=== PATIENT | female | born 1945 | race Caucasian/White ===

== ENCOUNTER 2023-01-23 09:06 | Outpatient (CLI) | payer MEDICARE, SELFPAY ==
--- NOTE | ~2023-01-23 | XR_ITS ---
XR chest 2V DATE: 01/23/2023 09:35 INDICATION: Dyspnea TECHNIQUE: 2 views COMPARISON: 12/03/2018 AP and lateral chest FINDINGS: Bilateral pulmonary hyperinflation consistent with COPD. No pulmonary infiltrate or consoli dation, pleural effusion or pulmonary vascular congestion or pneumothorax. Normal heart size. Aortic calcification and mild tortuosity. No hilar or mediastinal enlargement. Diffuse osteopenia. Mild thoracic dextroscoliosis. Lumbar levoscoliosis. IMPRESSION: Bilateral hyperinflation consistent with COPD Aortic atherosclerosis Reviewed, dictated and finalized at location L. OP ADMINISTRATOR
== END 2023-01-23 09:07 | disposition home or self-care (01) ==
PROVIDERS: PCP Family Medicine; Visit Provider Nurse Practitioner Family
DX: R06.00 Dyspnea, unspecified (principal); I70.0 Atherosclerosis of aorta; R91.8 Other nonspecific abnormal finding of lung field
CPT/HCPCS: 71046

== ENCOUNTER 2023-01-29 09:00 | Outpatient (CLI) | payer MEDICARE, SELFPAY ==
--- NOTE | 2023-01-29 13:28 | WPDSIXMINUTE ---
Six Minute Walk Procedure Procedure Performed Pulmonary Stress Test (6 min walk) Six Minute Walk Six Minute Walk: This is a 6 minute walk test. The test was performed and interpreted in accordance with the 2014 ERS/ATS task force guidelines. Findings: The patient's resting room air oxygen saturation measured by pulse oximetry was 97% and heart rate was 63 bpm. Patient ambulated for 244 meters and oxygen saturation remained 97 to 98%. Heart rate at the end of the study was 97 bpm. The patient did not qualify for supplemental oxygen at rest or with ambulation. There are no prior studies for comparison.
--- NOTE | 2023-01-29 13:29 | WPDPFTINT ---
PFT Procedure Performed PFT Procedure Performed Spirometry with Pre/Post Bronchodilator Plethysmography (Lung Vol) Diffusing Cap (DLCO) Flow Vol Loop PFT Interpretation This is a pulmonary function test with pre and post-bronchodilator spirometry, plethysmography and diffusing capacity. The test was performed and results interpreted in accordance with the 2019 and 2005 ATS/ERS Task Force guidelines respectively using the Global Lung Function Initiative-2012 reference equations. Patient demonstrated good effort and cooperation. Reproducibility criteria were met. The quality of the pre bronchodilator spirometry maneuver was Grade A and post bronchodilator spirometry maneuver was Grade A. Findings: Spirometry: There is decreased maximal expiratory airflow at all lung volumes with concave expiratory flow tracing. The contour the inspiratory flow tracing is normal. The pre bronchodilator FVC is 2.20 L, 90% predicted. The pre bronchodilator FEV1 is 0.99 L, 53% predicted. The pre bronchodilator FEV1: FVC ratio is 45%. The post bronchodilator FVC is 2.27 L, representing a 3% increase. The post bronchodilator FEV1 is 1.10 L, representing a 10% increase. The post bronchodilator FEV1: FVC ratio is 48%. Plethysmography: The total lung capacity is 6.33 L, 134% predicted. The functional residual capacity is 4.75 L, 175% predicted. The residual volume is 4.13 L, 186% predicted. Diffusing capacity: Diffusing capacity unadjusted for hemoglobin and carboxyhemoglobin is 9.1, 48% predicted. The diffusing capacity adjusted for alveolar volume is 3.09, 72% predicted. Impression: There is a moderately severe obstructive abnormality without significant improvement after inhaling a single dose of albuterol. The increase in residual volume is consistent with air trapping from an obstructive abnormality. Hyperinflation is present as demonstrated by the increase in functional residual capacity and total lung capacity and is consistent with an obstructive abnormality. The diffusing capacity unadjusted for hemoglobin and carboxyhemoglobin is moderately decreased and normalizes when adjusted for alveolar volume. There are no prior studies for comparison
== END 2023-01-29 09:01 | disposition home or self-care (01) ==
LOC: ANHPFT 09:02
PROVIDERS: PCP Family Medicine; Visit Provider Nurse Practitioner
DX: J44.9 Chronic obstructive pulmonary disease, unspecified (principal); R94.2 Abnormal results of pulmonary function studies
CPT/HCPCS: 94060; 94618; 94726; 94729

== ENCOUNTER 2023-02-15 13:33 | Outpatient (CLI) | payer MEDICARE, SELFPAY ==
--- NOTE | ~2023-02-15 | CT_ITS ---
EXAMINATION: CT diagnostic chest wo con DATE: 02/15/2023 14:03 INDICATION: Dyspnea. Abnormal findings on diagnostic imaging. TECHNIQUE: Computed tomography (CT) of the chest was performed without intravenous contrast. Automate d exposure control and iterative reconstruction technique were employed. Exam dose: 136.16 mGy-cm to bob exam DLP. COMPARISON: 01/23/2023 PA and lateral chest FINDINGS: Normal heart size. No pericardial effusion. No pleural effusion. There is thoracic aortic and great vessel in addition to coronary artery calcification. No thoracic a ortic aneurysm is evident. No hilar or mediastinal mass lesion or lymphadenopathy. Bilateral hyperinflation. There is bilateral apical and basilar and middle lobe linear scarring. Mild to moderate emphysematous changes of the lungs. No pulmonary infiltrate or consolidation or suspicious pulmonary mass lesion is detected. Status post cholecystectomy. Normal morphology of the adrenal glands. No suspicious osteolytic or osteoblastic lesions. There is degenerative spurring of the thoracic spin e. IMPRESSION: COPD Mild bilateral apical and basilar and middle lobe linear scarring Reviewed, dictated and finalized at Location A. Reviewed, dictated and finalized at location L.
== END 2023-02-15 13:34 | disposition home or self-care (01) ==
PROVIDERS: PCP Family Medicine; Visit Provider Nurse Practitioner
DX: R91.8 Other nonspecific abnormal finding of lung field (principal); J44.9 Chronic obstructive pulmonary disease, unspecified
CPT/HCPCS: 71250

== ENCOUNTER 2023-04-25 09:09 | Emergency (ER) | payer MEDICARE, SELFPAY ==
[2023-04-25] VITALS (16 sets, daily range): BP systolic 169–200; BP diastolic 65–98; PULSE 69–86; RESP 13–28; TEMP 36.9; O2SAT 97–100
--- NOTE | ~2023-04-25 | XR_ITS ---
EXAMINATION: XR chest 1V portable DATE: 04/25/2023 09:49 INDICATION: Shortness of breath. Hypertension. TECHNIQUE: A single frontal view of the chest was obtained. COMPARISON: Chest 2 views 01/23/2023, chest CT 02/15/2023 FINDINGS: There are lucencies in the lungs, consistent with emphysema. No pleural effusion or pneumot horax. The heart size is normal. IMPRESSION: 1. Emphysema. Reviewed, dictated and finalized at location A. IMPRESSION: 1. Emphysema.
--- NOTE | 2023-04-25 09:22 | ECG_ITS ---
Measurements Intervals [place] Rate: 80 P: 73 CA: 176 QRS: 75 QRSD: 133 T: 19 QT: 398 QTc: 460 Interpretive Statements SINUS RHYTHM RIGHT BUNDLE BRANCH BLOCK [120+ ms QRS DURATION, UPRIGHT V1, 40+ ms S IN I/aVL/V4/V5/V6] ABNORMAL ECG NO PREVIOUS ECG AVAILABLE FOR COMPARISON Electronically Signed On 04-25-2023 9:39:27 CDT by Scott Gardner M.D.
[2023-04-25 09:38] LABS: Basophils Absolute Auto 0.1 K/mm3 (0.0-0.1); Basophils Percent Auto 0.9 % (0.2-1.2); Eosinophils Absolute Auto 0.1 K/mm3 (0-0.3); Eosinophils Percent Auto 1.1 % (0-4.4); Hematocrit 41.7 % (37.0-47.0); Hemoglobin 14.2 g/dL (12.0-15.0); Immature Granulocyte Absolute 0.04 K/mm3 (0.00-0.031); Immature Granulocyte Percent A 0.5 % (0-0.5); Lymphocytes Absolute Auto 1.45 K/mm3 (0.9-3.2); Lymphocytes Percent Auto 19.4 % (18.3-44.2); Mean Corpuscular HGB Conc 34.1 g/dl (32-36); Mean Corpuscular Hemoglobin 30.5 pg (26-34); Mean Corpuscular Volume 89.5 fl (80-100); Mean Platelet Volume 8.5 fl (7.4-10.4); Monocytes Absolute Auto 0.6 K/mm3 (0.1-0.6); Monocytes Percent Auto 8.2 % (2.6-8.5); Neutrophils Absolute Auto 5.2 K/mm3 (1.3-6.7); Neutrophils Percent Auto 69.9 % (45.5-73.1); Platelet Count Result 261 k/mm3 (150-375); Red Blood Count 4.66 M/mm3 (4.2-5.4); Red Cell Distribution Width 13.5 % (11.5-14.5); White Blood Count 7.5 K/mm3 (4.5-10.0)
[2023-04-25 09:48] LABS: INR 0.9; Prothrombin Time 12.2 Seconds (11.1-14.7)
[2023-04-25 09:51] LABS: Alanine Aminotransferase 22 U/L (6-35); Albumin Level 4.5 g/dL (3.5-5.1); Alkaline Phosphatase 68 U/L (38-126); Anion Gap 7 mmol/L (8-16); Aspartate Amino Transferase 30 U/L (14-36); Bilirubin,Total 0.4 mg/dL (0.2-1.3); Blood Urea Nitrogen 16 mg/dL (7-17); Calcium 9.3 mg/dL (8.4-10.2); Carbon Dioxide 25 mmol/L (22-30); Chloride 101 mmol/L (98-107); Estimated CRCL calculation 53 ml/min; Estimated Glomerular Filt Rate > 60; Glucose 120 mg/dL (65-110); Potassium 3.9 mmol/L (3.4-5.0); Sodium 133 mmol/L (137-145)
[2023-04-25 10:03] LABS: Troponin I < 0.012 ng/mL (0.000-0.034)
[2023-04-25] MEDS: amLODIPine BESYLATE 5 MG TABLET PO (10:10)
--- NOTE | 2023-04-25 10:40 | ED.GENADULT ---
HPI - General Adult General Chief complaint: Shortness of Breath/Dyspnea Stated complaint: htn, SOB Time Seen by Provider: 04/25/23 09:16 Source: patient Mode of arrival: ambulatory Limitations: no limitations History of Present Illness HPI narrative: 78-year-old with a history of hypertension, COPD here with complaints of shortness of breath. Patient states that she woke up this morning feeling this way she stated she checked her blood pressure twice a her systolic blood pressure was in 200s. She denied any chest pain. No history of fever or chills. Onset (ago): hour(s) (1) Severity: mild Relieving factors: none Exacerbating factors: none Associated symptoms: denies other symptoms Related Data Allergies Allergy/AdvReac Type Severity Reaction Status Date / Time Penicillins Allergy Unknown Pruritic Verified 04/25/23 09:23 rash Review of Systems Review of Systems: All systems reviewed & are unremarkable except as noted in HPI and below Constitutional: Constitutional: Reports no additional constitutional complaints Eyes: Eyes: Reports no additional eye complaints ENT: Reports system reviewed and no additional complaints, except as documented Cardiovascular: Cardiovascular: Reports no additional cardiovascular complaints Respiratory: Respiratory: Reports as per HPI Gastrointestinal: Gastrointestinal: Reports no additional gastrointestinal complaints Musculoskeletal: Musculoskeletal: Reports no additional musculoskeletal complaints Neurologic: Reports system reviewed and no additional complaints, except as documented Psychiatric: Psychiatric: Reports no additional psychiatric complaints Endocrine: Endocrine: Reports no additional endocrine complaints [facility] Family History Family History (Updated 12/25/17 @ 08:52 by DOCTOR UNKNOWN) Father Hypertension Family history of coronary artery disease, Onset Age: 85 Patient's father is Family history of lung cancer Mother Hypertension Family history of coronary artery disease, Onset Age: 83 Patient's mother is Acute myocardial infarction Social History Social History Smoking status: Light tobacco smoker Second hand tobacco smoke exposure: No Alcohol intake: current Exam Narrative: GENERAL: Well-appearing, well-nourished, and in no acute distress. HEAD: Normocephalic, atraumatic. EYES: PERRLA and EOMI. NECK: Supple. CHEST: Clear to auscultation. No respiratory distress. HEART: Regular rate and rhythm. No murmur heard. Normal peripheral pulses. ABDOMEN: Soft, nontender, nondistended, normal active bowel sounds. EXTREMITIES: Normal range of motion. No edema. SKIN: Warm, dry, no rash. NEURO: No focal deficits. Alert and oriented x3. PSYCH: Normal mood and affect. Course Course Emergency Course: Notified patient and her daughter who is at bedside about her lab work. We will start her on Norvasc 5 mg daily. I discussed with her primary doctor will follow-up in the office agreed with the management. Vital Signs Vital signs: Vital Signs Temperature 36.9 C 04/25/23 09:13 Pulse Rate 86 04/25/23 09:13 Respiratory Rate 20 04/25/23 09:13 Blood Pressure 184/84 H 04/25/23 09:13 Pulse Oximetry 98 04/25/23 09:13 Oxygen Delivery Room Air 04/25/23 09:13 Temperature 36.9 C 04/25/23 09:13 Pulse Rate 86 04/25/23 09:13 Respiratory Rate 20 04/25/23 09:13 Blood Pressure 184/84 H 04/25/23 09:13 Pulse Oximetry 100 04/25/23 09:18 Oxygen Delivery Room Air 04/25/23 09:18 Medical Decision Making [facility] Narrative Medical decision making narrative: 78-year-old with a history of COPD and hypertension presently not taking any medication was found to have elevated blood pressure her physical exam and EKG is unremarkable we will check labs start on Norvasc 5 mg. Differential Diagnosis Differential Diagnosis: Poorly controlled hypertension, anxiety Vital Signs Vital Signs: Vital
== END 2023-04-25 11:36 | disposition home or self-care (01) ==
PROVIDERS: Emergency Provider Family Medicine; PCP Family Medicine
DX: I10 Essential (primary) hypertension (principal); J44.9 Chronic obstructive pulmonary disease, unspecified; F17.210 Nicotine dependence, cigarettes, uncomplicated; I45.10 Unspecified right bundle-branch block
CPT/HCPCS: 36415; 71045; 80053; 84484; 85025; 85610; 93005; 99284; A9270

== ENCOUNTER 2023-08-30 15:18 | Outpatient (CLI) | payer MEDICARE, SELFPAY ==
--- NOTE | ~2023-08-30 | XR_ITS ---
XR foot RT min 3V 08/30/2023 15:48 Indication: Right lateral foot pain after fall Procedure: 4 views right foot Comparison: 10/20/2009 Findings: There is a nondisplaced oblique intra-articular fracture base of the fifth metatarsal. Oste openia. Lisfranc joint intact. No focal soft tissue abnormality. No foreign bodies. Impression: 1: Oblique nondisplaced intra-articular fracture proximal aspect of the right fifth metatarsal. Reviewed, dictated and finalized at location A. Impression: 1: Oblique nondisplaced intra-articular fracture proximal aspect of the right f ifth metatarsal.
== END 2023-08-30 15:19 | disposition home or self-care (01) ==
LOC: ANHIMG 15:28
PROVIDERS: PCP Family Medicine; Visit Provider Family Medicine
DX: S92.354A Nondisplaced fracture of fifth metatarsal bone, right foot, initial encounter for closed fracture (principal); M79.671 Pain in right foot
CPT/HCPCS: 73630

== ENCOUNTER 2023-09-23 16:06 | Emergency (ER) | payer MEDICARE, SELFPAY ==
--- NOTE | ~2023-09-23 | XR_ITS ---
EXAMINATION: XR chest 1V portable DATE: 09/23/2023 17:36 INDICATION: Dizziness and weakness TECHNIQUE: frontal view of the chest was obtained. COMPARISON: Chest radiograph dated 04/25/2023 FINDINGS: Patient is rotated slightly towards the right. No focal airspace opacities, pulmonary edema, pleural effusion or pneumothorax. Cholecystectomy clips in right upper quadrant. IMPRESSION: 1. No acute cardiopulmonary disease. Reviewed, dictated and finalized at location A. E RUNNER
--- NOTE | 2023-09-23 16:09 | ECG_ITS ---
Measurements Intervals [place] Rate: 68 P: 44 DE: 149 QRS: 57 QRSD: 116 T: 3 QT: 417 QTc: 445 Interpretive Statements SINUS RHYTHM RIGHT BUNDLE BRANCH BLOCK LOW VOLTAGE- LIMB LEADS BASELINE ARTIFACT- I, III, AVR, AVL, AVF, V4-V6 ABNORMAL ECG COMPARED TO ECG 04/25/2023 09:16:43 NO SIGNIFICANT CHANGES Electronically Signed On 09-23-2023 16:53:05 INDIRECT FIRE INFANTRYMAN by Ramin Ingram D.O.
[2023-09-23 16:10] VITALS: BP 122/51; PULSE 70; RESP 16; TEMP 36.8; O2SAT 100
[2023-09-23 16:27] LABS: Basophils Absolute Auto 0.1 K/mm3 (0.0-0.1); Basophils Percent Auto 0.8 % (0.2-1.2); Eosinophils Absolute Auto 0.1 K/mm3 (0-0.3); Eosinophils Percent Auto 1.3 % (0-4.4); Hematocrit 34.7 % (37.0-47.0); Hemoglobin 11.8 g/dL (12.0-15.0); Immature Granulocyte Absolute 0.02 K/mm3 (0.00-0.031); Immature Granulocyte Percent A 0.3 % (0-0.5); Lymphocytes Absolute Auto 1.74 K/mm3 (0.9-3.2); Lymphocytes Percent Auto 27.2 % (18.3-44.2); Mean Corpuscular Hemoglobin 30.1 pg (26-34); Mean Corpuscular Volume 88.5 fl (80-100); Mean Platelet Volume 8.2 fl (7.4-10.4); Monocytes Absolute Auto 0.8 K/mm3 (0.1-0.6); Monocytes Percent Auto 12.8 % (2.6-8.5); Neutrophils Absolute Auto 3.7 K/mm3 (1.3-6.7); Neutrophils Percent Auto 57.6 % (45.5-73.1); Platelet Count Result 270 k/mm3 (150-375); Red Blood Count 3.92 M/mm3 (4.2-5.4); White Blood Count 6.4 K/mm3 (4.5-10.0)
[2023-09-23 16:38] LABS: Alanine Aminotransferase 17 U/L (6-35); Alkaline Phosphatase 51 U/L (38-126); Anion Gap 5 mmol/L (8-16); Aspartate Amino Transferase 25 U/L (14-36); Bilirubin,Total 0.5 mg/dL (0.2-1.3); Blood Urea Nitrogen 15 mg/dL (7-17); Calcium 9.4 mg/dL (8.4-10.2); Carbon Dioxide 28 mmol/L (22-30); Chloride 97 mmol/L (98-107); Estimated Glomerular Filt Rate > 60; Glucose 94 mg/dL (65-110); Potassium 3.8 mmol/L (3.4-5.0); Sodium 130 mmol/L (137-145)
--- NOTE | 2023-09-23 16:50 | ED.BACK ---
HPI - Back Pain/Injury General Chief Complaint: Back Pain/Injury Stated Complaint: back pain Time Seen by Provider: 09/23/23 16:23 Source: patient and family (daughter Lavonne) Mode of arrival: EMS Limitations: other (hard of hearing though assisted by hearing aids) History of Present Illness HPI Narrative: This is a 78 year old female with PMH COPD, scoliosis, and chronic back pain who presents with report of back pain. Patient points to left low buttock/gluteus. Several weeks ago, she sustained a fall causing an exacerbation of her chronic back pain. She had been going to a chiropractor which helped. Upon improvement of her back pain, however, she realized how much her R foot/ankle was hurting. This prompted a work-up and imaging during which it was determined she had a fractured bone. She has been in a walking boot since September 04 as a result. With the walking boot in place, her back/buttock has begun to hurt and this has been attributed to her altered gait. Denies foot drop of left foot though. No acute trauma (no falls, MVA, blunt trauma). She denies any paresthesias, changes in bowel/bladder (neither incontinence nor difficulty initiating either). No IVDU. She took 800mg ibuprofen at 2pm as well as some CBD oil at 2pm. Shortly thereafter she was a bit confused per patient's daughter. Daughter is also concerned about patient's blood pressure as they tried multiple times at home to get a reading and the home cuff wouldn't work for patient but worked to obtain patient's daughter's BP. Patient denies any chest pain. She did have some shortness of breath when the waves of pain come on and has a history of COPD. Uses both an albuterol nebulizer and an inhaler. Related Data Allergies Allergy/AdvReac Type Severity Reaction Status Date / Time Penicillins Allergy Unknown Pruritic Verified 04/25/23 09:23 rash Opioids - Morphine Analogues AdvReac Mild Nausea Verified 09/23/23 21:42 [facility] Past Medical History Medical History Chronic obstructive pulmonary disease, unspecified Scoliosis Family History Family History Father Hypertension Family history of coronary artery disease, Onset Age: 85 Patient's father is Family history of lung cancer Mother Hypertension Family history of coronary artery disease, Onset Age: 83 Patient's mother is Acute myocardial infarction Social History Social History Smoking status: Light tobacco smoker Second hand tobacco smoke exposure: No Alcohol intake: current Substance use type: marijuana Other substance usage details: cbd Last use: 09/23/2023 Exam Const: General: healthy appearing and alert; No confusion, diaphoretic or ill appearing Nutritional Appearance: well nourished Limitations: other limitations (diminished hearing but aided by by hearing aid) HENMT: Head: normal to inspection and no lacerations Eyes: Conjunctivae: conjunctivae normal Resp: Effort & Inspection: normal respiratory effort, not labored, no retractions, not tachypneic and no use of accessory muscles Auscultation: wheezes (bilaterally, faint but diffuse) Cardio: Rate: regular rate, not bradycardic and not tachycardic Rhythm: regular rhythm GI: Inspection: non-distended GI Palp: Yes Soft to palpation and No Tenderness to palpation present (GI) Back/Spine/Pelvis: Other: No TTP of thoracic or lumbar spine. Hips stable to compression. Demonstrates ability to bend/flex at waist and, to a lesser extent, extension/bend at the waist. Negative straight leg test bilaterally. Point TTP with palpation of buttock/glut that overlies left pubis bone (inferior aspect). Skin: General skin exam: normal color Other: Skin overlying back and L buttock without ecchymosis, rash (dermatomal or otherwise) Neuro: General: p
[2023-09-23] MEDS: predniSONE 20 MG TABLET PO (16:58)
[2023-09-23] MEDS: ACETAMINOPHEN 500 MG TABLET 1000 MG PO (16:58)
[2023-09-23] MEDS: CYCLOBENZAPRINE HCL 10 MG TABLET PO (16:59)
[2023-09-23] MEDS: LIDOCAINE 5% PATCH 1 PATCH TRANSDERM (17:00)
[2023-09-23] MEDS: ALBUTEROL SULFATE NEB 2.5 MG/3 ML INH INHALATION (17:14)
[2023-09-23 17:16] VITALS: PULSE 65; RESP 16
[2023-09-23 17:26] VITALS: PULSE 68; RESP 20
[2023-09-23] MEDS: ONDANSETRON HCL ODT 4 MG TABLET (19:46)
[2023-09-23 20:55] VITALS: BP 121/54; PULSE 71; RESP 15; O2SAT 94
== END 2023-09-23 20:57 | disposition home or self-care (01) ==
PROVIDERS: Emergency Provider Student in an Organized Health Care Education/Training Program; PCP Family Medicine
DX: M79.18 Myalgia, other site (principal); J44.9 Chronic obstructive pulmonary disease, unspecified; F17.210 Nicotine dependence, cigarettes, uncomplicated
CPT/HCPCS: 36415; 71045; 80053; 85025; 93005; 94640; 99283; A9270; J7512

== ENCOUNTER 2023-09-25 04:06 | Inpatient (IN) | payer MEDICARE, SELFPAY ==
[2023-09-25] VITALS (21 sets, daily range): BP systolic 103–167; BP diastolic 51–82; PULSE 75–97; RESP 16–24; TEMP 36.3–36.7; O2SAT 93–100
--- NOTE | ~2023-09-25 | MR_ITS ---
EXAMINATION: MR pelvis wo con DATE: 09/26/2023 15:52 INDICATION: Left pelvic pain TECHNIQUE: Magnetic resonance imaging (MRI) of the pelvis was performed without intravenous contrast. Sequences included axial T1-weighted FSE, axial T2-weighted FS FSE, coronal T1-weighted FSE, coronal T2-weighted FS FSE, sagittal T1-weighted FSE and sagittal T2-weighted FS FSE. COMPARISON: None. FINDINGS: Severe lumbar spondylosis. See separate lumbar spine MR performed earlier in the afternoon on 09/26/20 23. Mild osteoarthritis at the bilateral hips with subarticular cystlike changes at the anterosuperio r aspect of both the left and right acetabula. There is normal bone marrow signal throughout. No frac ture, osteonecrosis or pathologic marrow replacing process. Physiologic amount fluid in the bilateral hip joint spaces. No asymmetric muscular atrophy. The bilateral gluteal, proximal hamstring and ilio psoas tendons are all normal. Minimal likely physiologic free fluid in the pelvis. The uterus is not identified and has likely been surgically resected. No pathologically enlarged pelvic or inguinal lym phadenopathy. IMPRESSION: 1. Mild bilateral hip osteoarthritis. No acute osseous abnormality. Reviewed, dictated and finalized at location A. 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
--- NOTE | ~2023-09-25 | XR_ITS ---
Portable chest x-ray Comparison: 09/23/2023 Clinical History: Dyspnea Findings: There is linear scarring at the right lung base. Lungs are otherwise clear. Cardiomediast inal silhouette is stable. Bones and soft tissues are unremarkable. Impression: Linear scarring right lung base, otherwise clear lungs. Reviewed, dictated and finalized at location . TEACHER Impression: Linear scarring right lung base, otherwise clear lungs.
--- NOTE | ~2023-09-25 | MR_ITS ---
MRI of the lumbar spine Clinical History: Back pain Technique: Axial T2-weighted images, and sagittal T1-weighted, T2-weighted, and T2 fat-sat images wer e acquired. Findings: No fracture evident. There is levoscoliosis of the lumbar spine. There is 5 mm anterolisthe sis of L3 over L4. No suspicious bone marrow signal abnormality seen. At L1-L2, there is mild disc bulge, particularly left foraminal region with moderate to advanced face t arthropathy. No central canal stenosis. There is severe left neural foraminal narrowing. Right neur al foramen is mildly narrowed. At L2-L3, there is advanced degenerative disc narrowing. There is disc bulge and moderate to advanced facet arthropathy. There is minimal central canal stenosis. There is moderate to severe bilateral ne ural foraminal narrowing, right worse than left. At L3-L4, there is severe degenerative disc narrowing. Disc bulge and severe facet arthropathy are pr esent. There is severe right neural foraminal narrowing. Left neural foramen preserved. No farhan cent ral canal stenosis. At L4-L5, there is diffuse disc bulge with severe facet arthropathy. There is severe spinal canal julio nosis/thecal sac compression, with moderate to severe bilateral neural foraminal narrowing. At L5-S1, there is mild disc bulge and mild to moderate facet arthropathy. No central canal stenosis or neural foraminal narrowing. Paravertebral soft tissues are unremarkable. Impression: Severe degenerative spondylosis, as detailed above. 5 mm anterolisthesis of L3 over L4, with levoscoliosis. Reviewed, dictated and finalized at [facility]. 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 5 mm anterolisthesis of L3 over L4, with levoscoliosis.
[2023-09-25] MEDS: IBUPROFEN 600 MG TABLET PO (04:47)
[2023-09-25] MEDS: SODIUM CHLORIDE 0.9% IV 1,000 ML 999 ML IV CONT (04:51)
[2023-09-25] MEDS: ALBUTEROL SULFATE NEB 2.5 MG/3 ML INH 10 MG INHALATION (04:52)
[2023-09-25] MEDS: IPRATROPIUM BR 0.02% INH SOLN 0.5 MG/2.5 ML VIAL 1 MG INHALATION (04:52)
[2023-09-25 05:05] LABS: Basophils Percent Auto 0.2 % (0.2-1.2); Hematocrit 36.1 % (37.0-47.0); Hemoglobin 12.5 g/dL (12.0-15.0); Immature Granulocyte Absolute 0.04 K/mm3 (0.00-0.031); Immature Granulocyte Percent A 0.8 % (0-0.5); Lymphocytes Absolute Auto 0.72 K/mm3 (0.9-3.2); Lymphocytes Percent Auto 13.9 % (18.3-44.2); Mean Corpuscular HGB Conc 34.6 g/dl (32-36); Mean Corpuscular Hemoglobin 30.3 pg (26-34); Mean Corpuscular Volume 87.6 fl (80-100); Mean Platelet Volume 8.3 fl (7.4-10.4); Monocytes Absolute Auto 0.3 K/mm3 (0.1-0.6); Monocytes Percent Auto 5.8 % (2.6-8.5); Neutrophils Absolute Auto 4.1 K/mm3 (1.3-6.7); Neutrophils Percent Auto 79.3 % (45.5-73.1); Platelet Count Result 281 k/mm3 (150-375); Red Blood Count 4.12 M/mm3 (4.2-5.4); Red Cell Distribution Width 13.7 % (11.5-14.5); White Blood Count 5.2 K/mm3 (4.5-10.0)
--- NOTE | 2023-09-25 05:12 | ED.GENADULT ---
HPI - General Adult General Chief complaint: Shortness of Breath/Dyspnea Stated complaint: SOB Time Seen by Provider: 09/25/23 04:08 History of Present Illness HPI narrative: This is a 78-year-old female history of COPD presenting with difficulty breathing. Patient says she has been having progressively worse breathing for the last 3 days. Is not associated with fever chills cough chest pain or flu-like symptoms. She has been taking her inhalers with no relief. Patient had similar symptoms several years ago and was diagnosed with pneumonia at that time. Patient is also had concerned about her recent sciatica flare. She had a broken foot has been wearing a boot that has exacerbated her sciatica. Related Data Allergies Allergy/AdvReac Type Severity Reaction Status Date / Time Penicillins Allergy Unknown Pruritic Verified 09/25/23 04:18 rash Opioids - Morphine Analogues AdvReac Mild Nausea Verified 09/25/23 04:18 PMFSH Past Medical History Medical History Chronic obstructive pulmonary disease, unspecified Scoliosis Family History Family History Father Hypertension Family history of coronary artery disease, Onset Age: 85 Patient's father is Family history of lung cancer Mother Hypertension Family history of coronary artery disease, Onset Age: 83 Patient's mother is Acute myocardial infarction Social History Social History Smoking status: Light tobacco smoker Second hand tobacco smoke exposure: No Alcohol intake: current Substance use type: marijuana Other substance usage details: cbd Last use: 09/23/2023 Exam Narrative: APPEARANCE: No apparent distress. Head: atraumatic. EYES: EOMI, NOSE: Atraumatic NECK: Trachea midline RESPIRATORY: Pursed lip breathing, conversational dyspnea, scattered expiratory wheezing CARDIOVASCULAR: RRR, no peripheral edema ABDOMINAL: Non-distended MUSCULOSKELETAl: lower extremity in a walking boot NEURO: Alert. Moving 4/4 extremities SKIN:: Warm, dry. Normal color PSYCHIATRIC: Normal affect Course Vital Signs Vital signs: Vital Signs Temperature 98.0 F 09/25/23 04:06 Pulse Rate 97 09/25/23 04:06 Respiratory Rate 22 H 09/25/23 04:06 Blood Pressure 157/78 H 09/25/23 04:06 Pulse Oximetry 97 09/25/23 04:06 Oxygen Delivery Room Air 09/25/23 04:06 Temperature 98.0 F 09/25/23 04:06 Pulse Rate 90 09/25/23 05:37 Respiratory Rate 22 H 09/25/23 05:37 Blood Pressure 152/80 H 09/25/23 05:37 Pulse Oximetry 100 09/25/23 05:37 Oxygen Delivery Room Air 09/25/23 04:18 Medical Decision Making MDM Narrative Medical decision making narrative: -Course: 78-year-old female presenting with shortness of breath. She is given an hour long DuoNeb treatment and a course of steroids. Her breathing improved at rest, however when she was ambulated she quickly became winded and reverted to 2 word dyspnea and pursed lip breathing. Patient will be admitted to the hospital for further management of her COPD exacerbation. Additionally she has been having mobility issues due to a broken foot and can be evaluated by PT OT. -DDX includes but is not limited to: COPD, pneumonia, viral syndrome, bronchitis, pneumothorax CHF, PE -Co-morbidities complicating care: COPD, hypertension -External Chart Review: review of ER note from September 22 for sciatica -Hx from independent Sources: Daughter @ bedside -Independent interpretation of studies: CBC normal. metabolic panel showed chronic hyponatremia. Chest x-ray showed some scarring at the lung bases but otherwise clear. Independent EKG interpretation: Rhythm [sinus], Rate [93], [place] -[normal], [place] -[normal], QRS [wide] QTC [normal], T waves -[negative for concerning inversions], ST Segments - Sinus rhythm w
[2023-09-25 05:16] LABS: Alanine Aminotransferase 19 U/L (6-35); Alkaline Phosphatase 55 U/L (38-126); Aspartate Amino Transferase 31 U/L (14-36); Bilirubin,Total 0.5 mg/dL (0.2-1.3); Blood Urea Nitrogen 15 mg/dL (7-17); Calcium 8.9 mg/dL (8.4-10.2); Carbon Dioxide 28 mmol/L (22-30); Estimated CRCL calculation 53 ml/min; Estimated Glomerular Filt Rate > 60; Glucose 134 mg/dL (65-110)
[2023-09-25 05:28] LABS: Anion Gap 3 mmol/L (8-16); Chloride 98 mmol/L (98-107); Potassium 3.7 mmol/L (3.4-5.0); Sodium 129 mmol/L (137-145)
[2023-09-25] MEDS: ACETAMINOPHEN 500 MG TABLET 1000 MG PO (07:08)
--- NOTE | 2023-09-25 07:16 | PC.NURSE ---
Report given to ERIKA Smith at this time.
[2023-09-25] MEDS: LACTATED RINGERS 1,000 ML 125 ML IV CONT ×3 (08:36→16:55)
[2023-09-25] MEDS: CYCLOBENZAPRINE HCL 5 MG TABLET PO (08:38)
--- NOTE | 2023-09-25 09:17 | ECG_ITS ---
Measurements Intervals [place] Rate: 93 P: 77 [place]: 192 QRS: 79 QRSD: 110 T: 17 QT: 343 QTc: 427 Interpretive Statements SINUS RHYTHM POSSIBLE LEFT ATRIAL ENLARGEMENT RIGHT BUNDLE BRANCH BLOCK CANNOT RULE OUT SEPTAL INFARCT, AGE INDETERMINATE BASELINE ARTIFACT- I, II, III, AVR, AVL, AVF ABNORMAL ECG COMPARED TO ECG 09/23/2023 16:14:38 NO SIGNIFICANT CHANGES Electronically Signed On 09-25-2023 9:20:27 CAR INSPECTION AND REPAIR MANAGER by Ramin Ingram D.O.
[2023-09-25] MEDS: ALBUTEROL SULFATE NEB 2.5 MG/3 ML INH INHALATION ×3 (10:12→20:51)
[2023-09-25] MEDS: IPRATROPIUM BR 0.02% INH SOLN 0.5 MG/2.5 ML VIAL INHALATION ×3 (10:12→20:51)
--- NOTE | 2023-09-25 10:22 | PM.IMHP ---
H&P: HPI History of Present Illness Date/Time: 09/25/23 10:22 Chief Complaint: Short of breath Narrative: This is a 78-year-old female history of COPD presenting with difficulty breathing.? Patient says she has been having progressively worse breathing for the last 3 days.? Patient has some dry cough, patient denies smoking. Patient denies chest pain, abdomen pain, nausea vomiting. She has been taking her inhalers with no relief.? Patient also has history of left sciatica, patient feels pain is getting worse. Patient twisted right ankle 3 weeks ago, and was fixed per patient's gastroenterology physician, patient feels the right ankle pain is getting worse recently. Chest x-ray shows linear scarring right lower base, otherwise clear lungs, and patient also found have hyponatremia sodium 129 close to baseline, Review of Systems Review of Systems: Ros negative except above PMFSH Past Medical History Medical History Chronic obstructive pulmonary disease, unspecified Scoliosis Family History Family History Father Hypertension Family history of coronary artery disease, Onset Age: 85 Patient's father is Family history of lung cancer Mother Hypertension Family history of coronary artery disease, Onset Age: 83 Patient's mother is Acute myocardial infarction Social History Social History Smoking packs per day: 10 Smoking cigarettes per day: 200.0 Years smoked: 40 Smoking pack-years: 400.00 Smoking status: Former smoker Tobacco type: cigarettes Second hand tobacco smoke exposure: No Alcohol intake: never Substance use: never Substance use type: marijuana Other substance usage details: cbd Last use: 09/23/2023 Lack of Transportation: No Lack of Food: Never True Current Housing: I Have Housing Concerned About Future Housing: No Difficulty Paying Gas/Electric Bills: No Difficulty Paying for Meds: No Currently Unemployed: No Education: Bachelor's Degree Difficulty w/ Childcare or Family Care: No Spiritual care concerns: No Meds Home Medications and Allergies Home Medications Medication Instructions Recorded Confirmed Type amlodipine 5 mg tablet (Norvasc) 7.5 mg PO DAILY 09/25/23 09/25/23 History hydroxyzine HCl 100 mg tablet 100 mg PO TID PRN hives 09/25/23 09/25/23 History potassium chloride 10 mEq 10 meq PO DAILY 09/25/23 09/25/23 History tablet,extended release sodium chloride 1 gram tablet 1,000 mg PO DAILY 09/25/23 09/25/23 History Allergies Allergy/AdvReac Type Severity Reaction Status Date / Time Penicillins Allergy Unknown Pruritic Verified 09/25/23 04:18 rash Opioids - Morphine Analogues AdvReac Mild Nausea Verified 09/25/23 04:18 Vital Signs Vital Signs - 24 hr 09/25/23 04:06 09/25/23 04:18 09/25/23 04:54 Temperature 98.0 F Pulse Rate 97 94 Respiratory Rate 22 H 22 H Blood Pressure 157/78 H Pulse Oximetry 97 97 Oxygen Delivery Room Air Room Air 09/25/23 05:37 09/25/23 06:27 09/25/23 04:18 Temperature Pulse Rate 90 89 Respiratory Rate 22 H 22 H Blood Pressure 152/80 H Pulse Oximetry 100 100 Oxygen Delivery Room Air 09/25/23 06:20 09/25/23 06:46 09/25/23 06:57 Temperature Pulse Rate 94 96 Respiratory Rate 22 H 24 H Blood Pressure 148/81 H 124/56 L Pulse Oximetry 100 100 94 Oxygen Delivery Room Air 09/25/23 07:35 09/25/23 08:40 09/25/23 08:41 Temperature Pulse Rate 87 95 Respiratory Rate 16 18 Blood Pressure 120/51 L 103/70 Pulse Oximetry 94 93 95 Oxygen Delivery Room Air 09/25/23 10:01 09/25/23 10:14 09/25/23 10:14 Temperature Pulse Rate 84 82 Respiratory Rate 23 H 16 Blood Pressure 139/69 Pulse Oximetry 97 96 Oxygen Delivery Room Air Exam Narrative: GENERAL: Pleasant, in n
[2023-09-25] MEDS: methylPREDNISolone SOD SUCC 125 MG VIAL 60 MG IV PUSH ×2 (14:38→18:29)
[2023-09-25] MEDS: HYDROcodone/acetaminophen (*CRX) 5-325 MG TABLET 1 TAB PO ×2 (15:25→21:01)
--- NOTE | 2023-09-25 17:45 | PHAR ---
HOME MED: GRASS-FED BEEF ORGANS; ADULTS TAKE 3 TO 6 CAPSULES DAILY DIRECTED BY A HEALTHCARE PROFESSIONAL WITH 8 OZ OF WATER. MAY BE TAKEN WITH OR WITHOUT FOOD. NO IDENTIFIABLE MARKING ON THE CAPSULES IN THE BOTTLE. CAPSULES ARE CLEAR WITH BROWN POWDER ON THE INSIDE.
[2023-09-25 20:12] LABS: Influenza A QL RT-PCR Negative (Negative); Influenza B QL RT-PCR Negative (Negative)
[2023-09-25] MEDS: FLUTICASONE/SALMETEROL 45-21 MCG INHALER 1 PUFF 2 PUFF INHALATION (20:51)
[2023-09-26] VITALS (18 sets, daily range): BP systolic 137–153; BP diastolic 52–88; PULSE 75–88; RESP 16–20; TEMP 36.9; O2SAT 93–97
[2023-09-26] MEDS: methylPREDNISolone SOD SUCC 125 MG VIAL 60 MG IV PUSH ×4 (00:05→18:08)
[2023-09-26] MEDS: LACTATED RINGERS 1,000 ML 125 ML IV CONT (00:05)
[2023-09-26] MEDS: IPRATROPIUM BR 0.02% INH SOLN 0.5 MG/2.5 ML VIAL INHALATION ×4 (01:32→19:37)
[2023-09-26] MEDS: ALBUTEROL SULFATE NEB 2.5 MG/3 ML INH INHALATION ×4 (01:32→19:37)
[2023-09-26] MEDS: HYDROcodone/acetaminophen (*CRX) 5-325 MG TABLET 1 TAB PO ×3 (06:10→15:16)
[2023-09-26] MEDS: FLUTICASONE/SALMETEROL 45-21 MCG INHALER 1 PUFF 2 PUFF INHALATION ×2 (07:38→19:40)
--- NOTE | 2023-09-26 09:20 | PM.IMPN ---
Progress Note: A&P Assessment and Plan (1) COPD exacerbation: Code(s): J44.1 - Chronic obstructive pulmonary disease with (acute) exacerbation Status: Acute (2) Left sided sciatica: Code(s): M54.32 - Sciatica, left side Status: Acute (3) Right ankle pain: Code(s): M25.571 - Pain in right ankle and joints of right foot Status: Acute Plan COPD exacerbation Patient has history of COPD, has been having cough in past few days, and develops dyspnea X-ray shows no consolidation Follow-up flu and COVID screening Started DuoNeb scheduled and albuterol nebulizer p.r.n. methylprednisolone 60 mg q.6 are IV on 09/25 O2 therapy p.r.n. to keep pulse ox above 92 Dyspnea is improving Low back pain and left buttock pain History of left sciatica, patient also has left low back pain Movement of left leg restrictive of pain Follow-up MRI Right ankle pain Patient twisted right ankle 3 weeks ago, fix in the boot, ?xr shows Oblique nondisplaced intra-articular fracture proximal aspect of the right fifth metatarsal. right ankle pain is getting worse in past few more days Consult direct mail manager for evaluation and treat Consult PT OT post acute care nurse for evaluation and placement Subjective Date/time seen: 09/26/23 09:20 Interval history: I saw exam patient today, patient denies dyspnea, still has back pain and left buttock pain, pain is better controlled, patient denies chest pain, abdomen pain, nausea vomiting Exam Narrative: GENERAL: Pleasant, in no acute distress. Well-nourished. - EYES: EOMI. Anicteric. - HENT: Moist mucous membranes. - LUNGS: Clear to auscultation bilaterally, no wheezing, rhonchi, or rales. - CARDIOVASCULAR: Regular rate and rhythm. No murmur. No JVD. - ABDOMEN: Soft, non-tender and non-distended. No palpable masses. - EXTREMITIES: No edema. Peripheral pulses 2+. Non-tender. Right ankle tender by palpation - NEUROLOGIC: No focal neurological deficits. CN II-XII grossly intact. Low back and left buttock pain - PSYCHIATRIC: Awake, Alert and oriented x 3. Appropriate mood and affect. - SKIN: No rashes or lesions. Warm. - LYMPH: No cervical lymphadenopathy. Objective Data Vital Signs Vital Signs: Vital Signs - 24 hr 09/25/23 10:01 09/25/23 10:14 09/25/23 10:14 Temperature Pulse Rate 84 82 Respiratory Rate 23 H 16 Blood Pressure 139/69 Pulse Oximetry 97 96 Oxygen Delivery Room Air 09/25/23 10:26 09/25/23 13:57 09/25/23 14:10 Temperature Pulse Rate 82 76 75 Respiratory Rate 16 16 16 Blood Pressure Pulse Oximetry Oxygen Delivery 09/25/23 14:00 09/25/23 20:45 09/25/23 21:07 Temperature 97.3 F L Pulse Rate 91 77 82 Respiratory Rate 16 16 16 Blood Pressure 167/72 H Pulse Oximetry 96 Oxygen Delivery 09/25/23 22:00 09/25/23 20:00 09/25/23 20:00 Temperature 97.7 F Pulse Rate 91 77 91 Respiratory Rate 20 20 Blood Pressure 155/82 H Pulse Oximetry 96 96 Oxygen Delivery Room Air 09/26/23 01:32 09/26/23 01:43 09/26/23 00:00 Temperature Pulse Rate 75 79 76 Respiratory Rate 16 16 Blood Pressure Pulse Oximetry Oxygen Delivery 09/26/23 04:00 09/26/23 06:00 09/26/23 07:39 Temperature 98.4 F Pulse Rate 76 77 76 Respiratory Rate 20 16 Blood Pressure 153/77 H Pulse Oximetry 93 Oxygen Delivery 09/26/23 07:39 09/26/23 07:49 Temperature Pulse Rate 76 Respiratory Rate 16 Blood Pressure Pulse Oximetry 93 Oxygen Delivery Room Air Intake/Output Intake/Output: Intake & Output 09/23/23 09/24/23 09/25/23 09/26/23 23:59 23:59 23:59 23:59 Intake Total 3480 2200 Output Total 700 Balance 3480 1500 Meds/Results Medications: Active Medications Generic Name Dose Route Start Last Admin Trade Name Freq PRN Reason Stop Dose Admin Hydrocodone Bitart/Acetaminophen 1 tab 09/25/23 14:52 09/26/23 06:10 Hydrocodone/Acetaminophen (*Crx) 5-325 Mg Tablet PO
--- NOTE | 2023-09-26 09:51 | PCPTNOTE ---
Spoke with Dr. Abarca who requested therapy evaluations wait until after MRI is completed. Will follow.
[2023-09-26] MEDS: CYCLOBENZAPRINE HCL 5 MG TABLET PO (10:55)
--- NOTE | 2023-09-26 12:17 | PC.NURSE ---
To MRI per wheelchair.
--- NOTE | 2023-09-26 13:01 | PC.NURSE ---
Returned from MRI per wheelchair.
--- NOTE | 2023-09-26 14:00 | PC.NURSE ---
MRI notified per telephone of Physicians order to complete MRI of Pelvis. Explained patient will be premedicated.
--- NOTE | 2023-09-26 14:02 | PCOTNOTE ---
Attempted to see pt. for occupational therapy evaluation. Pt. still awaiting pelvic MRI, Dr. Abarca previously requesting therapy services be initiated after MRI completion. Following.
[2023-09-26] MEDS: LORazepam INJ (*CRX) 2 MG/ML VIAL 0.5 MG IV PUSH (15:13)
--- NOTE | 2023-09-26 15:15 | PC.NURSE ---
To MRI per wheelchair. Premedicated with Ativan 0.5mg IVP and Cowden 5mg po.
[2023-09-27] VITALS (15 sets, daily range): BP systolic 132–143; BP diastolic 52–74; PULSE 69–91; RESP 18–20; TEMP 36.4–36.8; O2SAT 92–100
[2023-09-27] MEDS: methylPREDNISolone SOD SUCC 125 MG VIAL 60 MG IV PUSH ×2 (00:08→05:21)
[2023-09-27] MEDS: LACTATED RINGERS 1,000 ML 125 ML IV CONT ×2 (00:11→08:46)
[2023-09-27] MEDS: IPRATROPIUM BR 0.02% INH SOLN 0.5 MG/2.5 ML VIAL INHALATION ×3 (07:36→18:59)
[2023-09-27] MEDS: ALBUTEROL SULFATE NEB 2.5 MG/3 ML INH INHALATION ×3 (07:36→18:58)
[2023-09-27] MEDS: FLUTICASONE/SALMETEROL 45-21 MCG INHALER 1 PUFF 2 PUFF INHALATION ×2 (07:36→18:59)
--- NOTE | 2023-09-27 07:51 | PM.IMPN ---
Progress Note: A&P Assessment and Plan (1) COPD exacerbation: Code(s): J44.1 - Chronic obstructive pulmonary disease with (acute) exacerbation Status: Acute (2) Left sided sciatica: Code(s): M54.32 - Sciatica, left side Status: Acute (3) Right ankle pain: Code(s): M25.571 - Pain in right ankle and joints of right foot Status: Acute Plan COPD exacerbation Patient has history of COPD, has been having cough in past few days, and develops dyspnea X-ray shows no consolidation Follow-up flu and COVID screening Started DuoNeb scheduled and albuterol nebulizer p.r.n. methylprednisolone 60 mg q.6 are IV on 09/25 O2 therapy p.r.n. to keep pulse ox above 92 Dyspnea resolves at rest, dc methylprednisolone IV, change to prednisone p.o. Low back pain and left buttock pain History of left sciatica, patient also has left low back pain Movement of left leg restrictive of pain Follow-up MRI : Severe degenerative spondylosis, 5 mm anterolisthesis of L3 over L4, with levoscoliosis. But no central canal stenosis Start gabapentin 300 mg t.i.d. p.o. for neuro pain Osteoporosis study outpatient per primary care doctor Right ankle pain Patient twisted right ankle 3 weeks ago, fix in the boot, ?xr shows Oblique nondisplaced intra-articular fracture proximal aspect of the right fifth metatarsal. right ankle pain is getting worse in past few more days Consult consumer insights specialist for evaluation and treat Chronic hyponatremia Sodium above baseline, continue sodium chloride supplement Follow-up BMP Hypokalemia Potassium 2.8, replete potassium chloride Follow-up BMP Essential hypertension On amlodipine 7.5 mg daily p.o. Blood pressure is controlled Consult PT OT child care supervisor for evaluation and assisting placement I had a long discussion up patient condition and discharge plans with the patient and patient's daughter per patient request Subjective Date/time seen: 09/27/23 07:51 Interval history: I saw and examined patient in the morning. Patient feels dyspnea has improved significantly. Patient denies chest pain, abdomen pain, nausea vomiting diarrhea. Patient feels right leg pain, buttock pain and bed pain a better controlled today. Patient denies urinary fecal incontinence. Labs and images study are reviewed Exam Narrative: GENERAL: Pleasant, in no acute distress. Well-nourished. - EYES: EOMI. Anicteric. - HENT: Moist mucous membranes. - LUNGS: Clear to auscultation bilaterally, no wheezing, rhonchi, or rales. - CARDIOVASCULAR: Regular rate and rhythm. No murmur. No JVD. - ABDOMEN: Soft, non-tender and non-distended. No palpable masses. - EXTREMITIES: No edema. Peripheral pulses 2+. Non-tender. Right ankle tender by palpation - NEUROLOGIC: No focal neurological deficits. CN II-XII grossly intact. Low back and left buttock pain, better controlled - PSYCHIATRIC: Awake, Alert and oriented x 3. Appropriate mood and affect. - SKIN: No rashes or lesions. Warm. - LYMPH: No cervical lymphadenopathy. Objective Data Vital Signs Vital Signs: Vital Signs - 24 hr 09/26/23 08:00 09/26/23 14:15 09/26/23 14:27 Temperature Pulse Rate 81 77 Respiratory Rate 16 16 Blood Pressure Pulse Oximetry Oxygen Delivery Room Air Fraction of Inspired Oxygen 09/26/23 08:00 09/26/23 12:00 09/26/23 14:00 Temperature 98.5 F Pulse Rate 87 80 88 Respiratory Rate 16 Blood Pressure 144/88 H Pulse Oximetry 97 Oxygen Delivery Fraction of Inspired Oxygen 09/26/23 16:00 09/26/23 19:40 09/26/23 19:41 Temperature Pulse Rate 87 79 Respiratory Rate 16 Blood Pressure Pulse Oximetry 94 Oxygen Delivery Room Air Fraction of Inspired Oxygen 09/26/23 19:48 09/26/23 20:00 09/26/23 20:00 Temperature Pulse Rate 78 76 78 Respiratory Rate 16 16 Blood Pressure Pulse Oximetry 94 Oxygen Delivery Room Air Fraction of Inspired Oxygen 09/26/23 22
[2023-09-27] MEDS: CHOLECALCIFEROL 1,000 UNITS TABLET 2000 UNITS PO (08:41)
[2023-09-27] MEDS: amLODIPine BESYLATE 2.5 MG TABLET 7.5 MG PO (08:42)
[2023-09-27] MEDS: HYDROcodone/acetaminophen (*CRX) 5-325 MG TABLET 1 TAB PO ×2 (08:47→16:54)
[2023-09-27 10:02] LABS: Basophils Percent Auto 0.1 % (0.2-1.2); Hemoglobin 12.6 g/dL (12.0-15.0); Immature Granulocyte Absolute 0.12 K/mm3 (0.00-0.031); Immature Granulocyte Percent A 1.2 % (0-0.5); Lymphocytes Absolute Auto 0.74 K/mm3 (0.9-3.2); Lymphocytes Percent Auto 7.2 % (18.3-44.2); Mean Corpuscular Hemoglobin 30.6 pg (26-34); Mean Corpuscular Volume 87.4 fl (80-100); Mean Platelet Volume 8.3 fl (7.4-10.4); Monocytes Absolute Auto 0.5 K/mm3 (0.1-0.6); Monocytes Percent Auto 4.9 % (2.6-8.5); Neutrophils Absolute Auto 8.9 K/mm3 (1.3-6.7); Neutrophils Percent Auto 86.6 % (45.5-73.1); Platelet Count Result 300 k/mm3 (150-375); Red Blood Count 4.12 M/mm3 (4.2-5.4); Red Cell Distribution Width 14.1 % (11.5-14.5); White Blood Count 10.3 K/mm3 (4.5-10.0)
[2023-09-27 10:17] LABS: Anion Gap 5 mmol/L (8-16); Blood Urea Nitrogen 13 mg/dL (7-17); Calcium 8.9 mg/dL (8.4-10.2); Carbon Dioxide 28 mmol/L (22-30); Chloride 98 mmol/L (98-107); Estimated CRCL calculation 62 ml/min; Estimated Glomerular Filt Rate > 60; Glucose 159 mg/dL (65-110); Potassium 2.8 mmol/L (3.4-5.0); Sodium 131 mmol/L (137-145)
[2023-09-27] MEDS: POTASSIUM CHLORIDE INJ 40 MEQ in SODIUM CHLORIDE 0.9% IV 500 ML 130 MEQ IVPB (10:58)
[2023-09-27] MEDS: POTASSIUM CHLORIDE 20 MEQ ER TABLET 40 MEQ PO ×2 (11:00→16:55)
[2023-09-27] MEDS: SODIUM CHLORIDE 500 MG TABLET 2000 MG PO ×2 (12:38→16:55)
[2023-09-27] MEDS: GABAPENTIN 300 MG CAPSULE PO ×2 (12:38→16:55)
--- NOTE | 2023-09-27 15:51 | PC.NURSE ---
called facility to go over med list. [facility] will fax over. spoke to Zari.
[2023-09-27 16:47] LABS: Anion Gap 4 mmol/L (8-16); Blood Urea Nitrogen 16 mg/dL (7-17); Carbon Dioxide 27 mmol/L (22-30); Chloride 103 mmol/L (98-107); Estimated CRCL calculation 62 ml/min; Estimated Glomerular Filt Rate > 60; Glucose 128 mg/dL (65-110); Potassium 3.4 mmol/L (3.4-5.0); Sodium 134 mmol/L (137-145)
[2023-09-27] MEDS: predniSONE 20 MG TABLET PO (16:54)
[2023-09-28] VITALS (10 sets, daily range): BP systolic 145; BP diastolic 59; PULSE 70–83; RESP 18; TEMP 36.9; O2SAT 93–94
[2023-09-28] MEDS: IPRATROPIUM BR 0.02% INH SOLN 0.5 MG/2.5 ML VIAL INHALATION ×3 (01:20→12:59)
[2023-09-28] MEDS: ALBUTEROL SULFATE NEB 2.5 MG/3 ML INH INHALATION ×3 (01:20→12:59)
[2023-09-28] MEDS: HYDROcodone/acetaminophen (*CRX) 5-325 MG TABLET 1 TAB PO ×3 (04:33→14:44)
[2023-09-28] MEDS: FLUTICASONE/SALMETEROL 45-21 MCG INHALER 1 PUFF 2 PUFF INHALATION (07:00)
[2023-09-28 07:33] LABS: Basophils Percent Auto 0.2 % (0.2-1.2); Eosinophils Percent Auto 0.1 % (0-4.4); Hematocrit 35.6 % (37.0-47.0); Hemoglobin 12.3 g/dL (12.0-15.0); Immature Granulocyte Absolute 0.14 K/mm3 (0.00-0.031); Immature Granulocyte Percent A 1.2 % (0-0.5); Lymphocytes Absolute Auto 2.82 K/mm3 (0.9-3.2); Lymphocytes Percent Auto 24.1 % (18.3-44.2); Mean Corpuscular HGB Conc 34.6 g/dl (32-36); Mean Corpuscular Hemoglobin 30.1 pg (26-34); Mean Platelet Volume 8.1 fl (7.4-10.4); Monocytes Absolute Auto 1.2 K/mm3 (0.1-0.6); Monocytes Percent Auto 10.4 % (2.6-8.5); Neutrophils Absolute Auto 7.5 K/mm3 (1.3-6.7); Platelet Count Result 307 k/mm3 (150-375); Red Blood Count 4.09 M/mm3 (4.2-5.4); Red Cell Distribution Width 14.2 % (11.5-14.5); White Blood Count 11.7 K/mm3 (4.5-10.0)
[2023-09-28 07:38] LABS: Anion Gap 3 mmol/L (8-16); Blood Urea Nitrogen 14 mg/dL (7-17); Calcium 8.6 mg/dL (8.4-10.2); Carbon Dioxide 29 mmol/L (22-30); Chloride 100 mmol/L (98-107); Estimated CRCL calculation 62 ml/min; Estimated Glomerular Filt Rate > 60; Glucose 92 mg/dL (65-110); Potassium 3.4 mmol/L (3.4-5.0); Sodium 132 mmol/L (137-145)
--- NOTE | 2023-09-28 08:47 | PCPTNOTE ---
Patient declined PT at this time. Patient states she is not feeling as well as she did when she was admitted to the hospital. Patient states her labs are off and the low sodium makes her shaky. Patient states she has been through therapy before and and is aware of safety concerns with mobility and has a home exercise program to follow for strengthening. PT will follow up with patient later today.
[2023-09-28] MEDS: amLODIPine BESYLATE 2.5 MG TABLET 7.5 MG PO (09:23)
[2023-09-28] MEDS: polyethylene glycoL 3350 17 GM POWD.PACK PO (09:23)
[2023-09-28] MEDS: SODIUM CHLORIDE 1 GM TABLET PO (09:23)
[2023-09-28] MEDS: CHOLECALCIFEROL 1,000 UNITS TABLET 2000 UNITS PO (09:23)
[2023-09-28] MEDS: GABAPENTIN 300 MG CAPSULE PO ×2 (09:23→12:59)
[2023-09-28] MEDS: predniSONE 20 MG TABLET PO (09:23)
[2023-09-28 12:14] LABS: Glucose Point of Care 108 mg/dl (65-105)
--- NOTE | 2023-09-28 13:21 | PM.DS ---
DS: Admitting Diagnosis Discharge Date 09/28/2023 Admitting Diagnosis COPD exacerbation DS: Discharge Diagnosis Discharge Diagnosis (1) COPD exacerbation: Code(s): J44.1 - Chronic obstructive pulmonary disease with (acute) exacerbation Status: Acute DS: Summary Hospital Course Hospital Course: This is a 78-year-old female history of COPD presenting with difficulty breathing.? Patient says she has been having progressively worse breathing for the last 3 days.? Patient has some dry cough, patient denies smoking.? Patient denies chest pain, abdomen pain, nausea vomiting.? She has been taking her inhalers with no relief.? Patient also has history of left sciatica, patient feels pain is getting worse.? Patient twisted right ankle 3 weeks ago, and was fixed per patient's cover assembler, patient feels the right ankle pain is getting worse recently. ? Chest x-ray shows linear scarring right lower base, otherwise clear lungs, and patient also found have hyponatremia sodium 129 close to baseline, Resp failure has resolved and patinet discharged home on Spiriva, tapering steroid and f/u with PCP. Assessment and Plan (1) COPD exacerbation: ?Code(s): J44.1 - Chronic obstructive pulmonary disease with (acute) exacerbation ?Status:?Acute (2) Left sided sciatica: ?Code(s): M54.32 - Sciatica, left side ?Status:?Acute (3) Right ankle pain: ?Code(s): M25.571 - Pain in right ankle and joints of right foot ?Status:?Acute Plan COPD exacerbation Patient has history of COPD, has been having cough in past few days, and develops dyspnea X-ray shows no consolidation Follow-up flu and COVID screening s/p Steroids and bronchodilators Now on room air discharged on prednisone taper, Combivent and Spiriva f/u with PCP in 3-5 days Low back pain and left buttock pain History of left sciatica, patient also has left low back pain Movement of left leg restrictive of pain Follow-up MRI : Severe degenerative spondylosis, 5 mm anterolisthesis of L3 over L4, with levoscoliosis.? f/u with PCP, if pain worsens referral to neurosurgery from PCP Right ankle pain Patient twisted right ankle 3 weeks ago, fix in the boot, ?xr shows Oblique nondisplaced intra-articular fracture proximal aspect of the right fifth metatarsal. f/u with PCP, if worse will seek referral to ortho from PCP Chronic hyponatremia Sodium above baseline, continue sodium chloride supplement Hypokalemia Potassium 2.8, replete potassium chloride continue home Potassium supplementation Essential hypertension On amlodipine 7.5 mg daily p.o. Blood pressure is controlled F/u with PCP in 3-5 days. Time Spent with Patient Time attestation: Total time spent providing and/or coordinating discharge services: DS: Data Data Completed and Pending Labs on day of discharge: Labs from last 24 hours 09/28/23 09/28/23 09/27/23 12:03 07:09 16:18 WBC 11.7 H RBC 4.09 L Hgb 12.3 Hct 35.6 L MCV 87.0 MCH 30.1 MCHC 34.6 RDW 14.2 Plt Count 307 MPV 8.1 Immature Gran % (Auto) 1.2 H Neut % (Auto) 64.0 Lymph % (Auto) 24.1 Creek % (Auto) 10.4 H Eos % (Auto) 0.1 Baso % (Auto) 0.2 Lymph # (Auto) 2.82 Creek # (Auto) 1.2 H Eos # (Auto) 0.0 Baso # (Auto) 0.0 Abs Immat Gran (auto) 0.14 H Absolute Neuts (auto) 7.5 H Absolute Nucleated RBC 0.0 Nucleated RBC % 0.0 Sodium 132 L 134 L Potassium 3.4 3.4 Chloride 100 103 Carbon Dioxide 29 27 Anion Gap 3 L 4 L BUN 14 16 Creatinine 0.50 L 0.50 L Estim Creat Clear Calc 62 62 Estimated GFR > 60 > 60 Glucose 92 128 H POC Capillary Glucose 108 H Calcium 8.6 9.0 Discharge Plan Discharge Attending physician on discharge: Claribel Sheikh Discharging Clinician: Claribel Sheikh Anticipated Discharge Date/Time: 09/28/23 13:09 Patient Disposition: Home, Self-Care Activity: as tolerated Di
--- NOTE | 2023-09-28 14:04 | PCPTNOTE ---
Returned to see patient this afternoon for PT. Patient states she is being discharged and states she has no concerns with mobility and managing at home declining PT service at this time.
--- NOTE | 2023-09-28 17:21 | PC.NURSE ---
home meds returned, iv out, gave d/c instructions, denies questions. spoke to the daughter when discharging, gave patient advocate card d/t concerns she had during stay. patient taken out by wheelchair, left by private car.
== END 2023-09-28 16:30 | disposition home or self-care (01) | DRG 191 ==
LOC: ANHED 06:27 → ANH3MEDSUR 08:20
PROVIDERS: Hospitalist; Admitting Provider Internal Medicine; Emergency Provider Emergency Medicine; PCP Family Medicine; Visit Provider Internal Medicine
DX: J44.1 Chronic obstructive pulmonary disease with (acute) exacerbation (principal); E87.1 Hypo-osmolality and hyponatremia; S93.401D Sprain of unspecified ligament of right ankle, subsequent encounter; M54.42 Lumbago with sciatica, left side; E87.6 Hypokalemia; I10 Essential (primary) hypertension; Z87.891 Personal history of nicotine dependence; X58.XXXD Exposure to other specified factors, subsequent encounter
CPT/HCPCS: 36415; 71045; 72148; 72195; 80048; 80053; 82948; 85025; 87502; 93005; 94640; 96361; 96374; 97161; 97165; 99285; A9270; J1100; J2060; J2930; J3480; J7030; J7040; J7120; J7512

== ENCOUNTER 2024-09-17 07:06 | Outpatient (CLI) | payer MEDICARE, SELFPAY ==
--- NOTE | ~2024-09-17 | XR_ITS ---
Clinical Indication: Shortness of breath PA and lateral views of the chest: Comparison: 09/25/2023 Findings: The lungs are clear, without evidence of focal consolidation or pleural effusion. COPD annetta thee present. Cardiomediastinal silhouette is within normal limits. Bones and soft tissues are unremar kable. Impression: COPD. Reviewed, dictated and finalized at location . Impression: COPD.
== END 2024-09-17 07:07 | disposition home or self-care (01) ==
PROVIDERS: PCP Nurse Practitioner Family; Visit Provider Nurse Practitioner Family
DX: R06.02 Shortness of breath (principal); J44.9 Chronic obstructive pulmonary disease, unspecified
CPT/HCPCS: 71046

== ENCOUNTER 2024-09-18 16:00 | Emergency (ER) | payer MEDICARE, SELFPAY ==
--- NOTE | ~2024-09-18 | XR_ITS ---
XR chest 2V Ordering provider: Lore Nguyen PA-C History: 79 years Female with . , hx COPD . Comparison: September 17, 2024 FINDINGS: MEDIASTINUM: The cardiac silhouette is not enlarged. LUNGS: No infiltrates, effusions or pneumothorax. Emphysematous changes of the lungs. OTHER: No free air under the diaphragm. Degenerative changes of the spine. S-shaped scoliosis in the thoracolumbar area IMPRESSION: No acute cardiopulmonary pathology. Reviewed, dictated and finalized at location A.
[2024-09-18 16:27] VITALS: BP 148/65; PULSE 105; RESP 20; TEMP 36.5; O2SAT 96
--- NOTE | 2024-09-18 16:58 | ED_ITS ---
HPI - URI/Sore Throat General Chief Complaint: Upper Respiratory Infection <Lore Nguyen PA-C - Last Filed: 09/19/24 16:02> Stated Complaint: sob, congestion <Lore Nguyen PA-C - Last Filed: 09/19/24 16:02> Time Seen by Provider: 09/18/24 16:58 <Lore Nguyen PA-C - Last Filed: 09/19/24 16:02> Focused HPI: This is a 79 year old female that presents to the ER for shortness of breath. She went to see her PCP on Sunday and had Xrays. Xray said her lungs were clear. She has history of COPD. Is currently taking Prednisone and Levofloxacin with little relief. Reports a lot of congestion. Denies fevers. GENERAL: Elderly, well-nourished, and in no acute distress. HEAD: Normocephalic, atraumatic. CHEST: Clear to auscultation. ?No respiratory distress. HEART: Regular rate and rhythm.? NEURO: ?Alert and oriented x3. Patient screened in triage and initial orders placed.? ?Additional care and disposition to be based upon?diagnostic testing and treatment. <Lore Nguyen PA-C - Last Filed: 09/19/24 16:02> History of Present Illness HPI Narrative: patient presents here with some shortness of breath and some congestion that has been ongoing for several weeks. Has seen her doctor for this, currently on course of antibiotics and steroids. <Jessica Strong MD - Last Filed: 09/23/24 07:59> Related Data Home Medications: Home Medications Medication Instructions Recorded Confirmed Grass Fed Beef Organs 1 cap PO AC 09/25/23 09/25/23 Saccharomyces boulardii 250 mg 250 mg PO BID 09/25/23 09/25/23 capsule amlodipine 5 mg tablet (Norvasc) 7.5 mg PO DAILY 09/25/23 09/25/23 biotin 5,000 mcg chewable tablet 5,000 mcg PO DAILY 09/25/23 09/25/23 cholecalciferol (vitamin D3) 25 50 mcg PO DAILY 09/25/23 09/25/23 mcg (1,000 unit) capsule glucosamine sulfate 500 mg tablet 1,500 mg PO DAILY 09/25/23 09/25/23 (Glucosamine) hydroxyzine HCl 100 mg tablet 100 mg PO TID PRN hives 09/25/23 09/25/23 potassium chloride 10 mEq 10 meq PO DAILY 09/25/23 09/25/23 tablet,extended release sodium chloride 1 gram tablet 1,000 mg PO DAILY 09/25/23 09/25/23 <Lore Nguyen PA-C - Last Filed: 09/19/24 16:02> Allergies/Adverse Reactions: Allergies Allergy/AdvReac Type Severity Reaction Status Date / Time Penicillins Allergy Unknown Pruritic Verified 09/25/23 04:18 rash Opioids - Morphine Analogues AdvReac Mild Nausea Verified 09/25/23 04:18 <Lore Nguyen PA-C - Last Filed: 09/19/24 16:02> Review of Systems Review of Systems: All systems reviewed & are unremarkable except as noted in HPI and below <Lore Nguyen PA-C - Last Filed: 09/19/24 16:02> [facility] Past Medical History Medical History: Medical History Chronic obstructive pulmonary disease, unspecified Scoliosis <Lore Nguyen PA-C - Last Filed: 09/19/24 16:02> Family History Family History: Family History Father Hypertension Family history of coronary artery disease, Onset Age: 85 Patient's father is Family history of lung cancer Mother Hypertension Family history of coronary artery disease, Onset Age: 83 Patient's mother is Acute myocardial infarction <KATIUSKA Burton Last Filed: 09/19/24 16:02> Social History Social History: Social History Smoking packs per day: 10 Smoking cigarettes per day: 200.0 Years smoked: 40 Smoking pack-years: 400.00 Smoking status: Former smoker Tobacco type: cigarettes Second hand tobacco smoke exposure: No Alcohol intake: never Substance use: never Substance use type: marijuana Other substance usage details: cbd Last use: 09/23/2023 Lack of Transportation: No Lack of Food: Never True Current Housing: I Have Housing Concerned About Future Housing: No Difficulty Paying Gas/Electric Bills: No Difficulty Paying for Meds: No Currently Unemployed: No Education: Bachelor's Degree Difficulty w/ Childcare or Family Care: No Spiritual care concerns: No <Lore Nguyen PA-C - Last Filed: 09/19/24 16:02> Exam Narrative: GENERAL: Well-appearing, well-nourished, and in no acute distress. HEAD: Normocephalic, atraumatic. EYES: EOMI. CHEST: Clear to auscultation. No respiratory distress. No wheezes rales or rhonchi HEART: Regular rate and rhythm. No murmur heard. Normal peripheral pulses. EXTREMITIES: Normal range of motion. No edema. SKIN: Warm, dry, no rash. NEURO: No focal deficits. Alert and oriented x3. PSYCH: Normal mood and affect <Lore Nguyen PA-C - Last Filed: 09/19/24 16:02> Course Vital Signs Vital signs: Vital Signs Temperature 97.7 F 09/18/24 16:27 Pulse Rate 105 H 09/18/24 16:27 Respiratory Rate 20 09/18/24 16:27 Blood Pressure 148/65 H 09/18/24 16:27 Pulse Oximetry 96 09/18/24 16:27 Temperature 97.7 F 09/18/24 16:27 Pulse Rate 67 09/19/24 00:30 Respiratory Rate 15 09/19/24 00:30 Blood Pressure 159/73 H 09/19/24 00:30 Pulse Oximetry 97 09/19/24 00:30 Oxygen Delivery Room Air 09/19/24 00:00 <Lore Nguyen PA-C - Last Filed: 09/19/24 16:02> Vital Signs Temperature 97.7 F 09/18/24 16:27 Pulse Rate 105 H 09/18/24 16:27 Respiratory Rate 20 09/18/24 16:27 Blood Pressure 148/65 H 09/18/24 16:27 Pulse Oximetry 96 09/18/24 16:27 Temperature 97.7 F 09/18/24 16:27 Pulse Rate 67 09/19/24 00:30 Respiratory Rate 15 09/19/24 00:30 Blood Pressure 159/73 H 09/19/24 00:30 Pulse Oximetry 97 09/19/24 00:30 Oxygen Delivery Room Air 09/19/24 00:00 <Jsesica Strong MD - Last Filed: 09/23/24 07:59> MDM - URI/Sore Throat MDM Narrative Medical decision making narrative: Patient presenting some shortness of breath, she is overall extremely well appearing, resting comfortably, no distress, vital signs within acceptable limits including normal oxygen. no swelling or pain Of legs, no DVT symptoms. X-ray with normal, EKG baseline, on my independent interpretation shows normal sinus rhythm rate 72, AR 191, QRS 124, QTC 441, normal axis, right bundle branch block. Basic labs obtained are thankfully within acceptable limits. I have asked the patient follow-up with primary care doctor and continue with her current treatment. At time of discharge she is very well-appearing no acute distress. I have let her know that if she were to have more shortness of breath, chest pain, or anything else concerning, she needs to return to the emergency immedia tely. Patient agreeable to this plan. <Jessica Strong MD - Last Filed: 09/23/24 07:59> Lab Data Result diagrams: 09/18/24 23:15 09/18/24 23:15 <Lore Nguyen PA-C - Last Filed: 09/19/24 16:02> Labs: Lab Results 09/18/24 Range/Units 23:15 WBC 4.7 (4.5-10.0) K/mm3 RBC 4.17 L (4.2-5.4) M/mm3 Hgb 13.0 (12.0-15.0) g/dL Hct 35.9 L (37.0-47.0) % MCV 86.1 (80-100) fl MCH 31.2 (26-34) pg MCHC 36.2 H (32-36) g/dl RDW 13.7 (11.5-14.5) % Plt Count 292 (150-375) k/mm3 MPV 8.4 (7.4-10.4) fl Immature Gran % (Auto) 0.4 (0-0.5) % Neut % (Auto) 75.9 H (45.5-73.1) % Lymph % (Auto) 17.1 L (18.3-44.2) % Oliver % (Auto) 6.4 (2.6-8.5) % Eos % (Auto) 0.0 (0-4.4) % Baso % (Auto) 0.2 (0.2-1.2) % Lymph # (Auto) 0.80 L (0.9-3.2) K/mm3 Oliver # (Auto) 0.3 (0.1-0.6) K/mm3 Eos # (Auto) 0.0 (0-0.3) K/mm3 Baso # (Auto) 0.0 (0.0-0.1) K/mm3 Abs Immat Gran (auto) 0.02 (0.00-0.031) K/mm3 Absolute Neuts (auto) 3.6 (1.3-6.7) K/mm3 Absolute Nucleated RBC 0.000 (0.0-0.012) K/mm3 Nucleated RBC % 0.0 (0.0-0.2) % Sodium 130 L (137-145) mmol/L Potassium 3.8 (3.4-5.0) mmol/L Chloride 94 L (98-107) mmol/L Carbon Dioxide 26 (22-30) mmol/L Anion Gap 10 (4-12) mmol/L BUN 12 (7-17) mg/dL Creatinine 0.60 L (0.7-1.0) mg/dL Estim Creat Clear Calc 53 ml/min Estimated GFR > 60 (59 - ) Glucose 126 H (65-110) mg/dL Calcium 9.7 (8.4-10.2) mg/dL Total Bilirubin 0.5 (0.2-1.3) mg/dL AST 26 (14-36) U/L ALT 16 (6-35) U/L Alkaline Phosphatase 62 (38-126) U/L Total Protein 8.0 (6.3-8.2) g/dL Albumin 4.6 (3.5-5.1) g/dL Influenza A (RT-PCR) Negative (Negative) Influenza B (RT-PCR) Negative (Negative) RSV (RT-PCR) Negative (Negative) SARS-CoV-2 RNA (RT-PCR) Negative (Negative) <Lore Nguyen PA-C - Last Filed: 09/19/24 16:02> Lab Results 09/18/24 Range/Units 23:15 WBC 4.7 (4.5-10.0) K/mm3 RBC 4.17 L (4.2-5.4) M/mm3 Hgb 13.0 (12.0-15.0) g/dL Hct 35.9 L (37.0-47.0) % MCV 86.1 (80-100) fl MCH 31.2 (26-34) pg MCHC 36.2 H (32-36) g/dl RDW 13.7 (11.5-14.5) % Plt Count 292 (150-375) k/mm3 MPV 8.4 (7.4-10.4) fl Immature Gran % (Auto) 0.4 (0-0.5) % Neut % (Auto) 75.9 H (45.5-73.1) % Lymph % (Auto) 17.1 L (18.3-44.2) % Oliver % (Auto) 6.4 (2.6-8.5) % Eos % (Auto) 0.0 (0-4.4) % Baso % (Auto) 0.2 (0.2-1.2) % Lymph # (Auto) 0.80 L (0.9-3.2) K/mm3 Oliver # (Auto) 0.3 (0.1-0.6) K/mm3 Eos # (Auto) 0.0 (0-0.3) K/mm3 Baso # (Auto) 0.0 (0.0-0.1) K/mm3 Abs Immat Gran (auto) 0.02 (0.00-0.031) K/mm3 Absolute Neuts (auto) 3.6 (1.3-6.7) K/mm3 Absolute Nucleated RBC 0.000 (0.0-0.012) K/mm3 Nucleated RBC % 0.0 (0.0-0.2) % Sodium 130 L (137-145) mmol/L Potassium 3.8 (3.4-5.0) mmol/L Chloride 94 L (98-107) mmol/L Carbon Dioxide 26 (22-30) mmol/L Anion Gap 10 (4-12) mmol/L BUN 12 (7-17) mg/dL Creatinine 0.60 L (0.7-1.0) mg/dL Estim Creat Clear Calc 53 ml/min Estimated GFR > 60 (59 - ) Glucose 126 H (65-110) mg/dL Calcium 9.7 (8.4-10.2) mg/dL Total Bilirubin 0.5 (0.2-1.3) mg/dL AST 26 (14-36) U/L ALT 16 (6-35) U/L Alkaline Phosphatase 62 (38-126) U/L Total Protein 8.0 (6.3-8.2) g/dL Albumin 4.6 (3.5-5.1) g/dL Influenza A (RT-PCR) Negative (Negative) Influenza B (RT-PCR) Negative (Negative) RSV (RT-PCR) Negative (Negative) SARS-CoV-2 RNA (RT-PCR) Negative (Negative) <Jessica Strong MD - Last Filed: 09/23/24 07:59> Imaging Data Radiologist's impression: ITS Impressions Chest X-Ray 09/18/24 17:43 IMPRESSION: No acute cardiopulmonary pathology. <Lore Nguyen PA-C - Last Filed: 09/19/24 16:02> Critical Care Time Critical Care Time Critical Care Time: No <Lore Nguyen PA-C - Last Filed: 09/19/24 16:02> Discharge Plan Discharge Clinical Impression: Chronic obstructive pulmonary disease, unspecified Qualifiers: COPD type: unspecified COPD Qualified Code(s): J44.9 - Chronic obstructive pulmonary disease, unspecified <Lore Nguyen PA-C - Last Filed: 09/19/24 16:02> Patient Disposition: Home, Self-Care <Lore Nguyen PA-C - Last Filed: 09/19/24 16:02> Condition: Stable <Lore Nguyen PA-C - Last Filed: 09/19/24 16:02> Instructions: Acute Bronchitis (ED) <Lore Nguyen PA-C - Last Filed: 09/19/24 16:02> Additional Instructions: Please follow up with your doctor; you can always return for any further issues. Please continue to take your medications. <Lore Nguyen PA-C - Last Filed: 09/19/24 16:02> Prescriptions: No Action amlodipine [Norvasc] 5 mg Tablet 7.5 mg PO DAILY sodium chloride 1 gram Tablet 1,000 mg PO DAILY potassium chloride 10 mEq Tablet Extended Release 10 meq PO DAILY hydroxyzine HCl 100 mg Tablet 100 mg PO TID PRN (Reason: hives) Grass Fed Beef Organs 1 cap PO AC glucosamine sulfate [Glucosamine] 500 mg Tablet 1,500 mg PO DAILY Rx Instructions: administer with a meal cholecalciferol (vitamin D3) 25 mcg (1,000 unit) Capsule 50 mcg PO DAILY Saccharomyces boulardii 250 mg Capsule 250 mg PO BID biotin 5,000 mcg Tablet,Chewable 5,000 mcg PO DAILY tiotropium bromide [Spiriva with HandiHaler] 18 mcg capsule, w/inhalation device 1 cap inhalation DAILY Qty: 1 2RF Rx Instructions: puncture 1 cap using device; one dose = 2 inhalations prednisone 10 mg tablet 10 mg PO DIRECTED Qty: 11 0RF Rx Instructions: see taper instructions 20mg daily x 3 days, then 10mg x3 days then 5mg x3 days then stop Combivent Respimat 20-100 mcg/actuation mist 1 puff inhalation QID PRN (Reason: shortness of breath or wheezing) Qty: 4 3RF Rx Instructions: space evenly during waking hours <Lore Nguyen PA-C - Last Filed: 09/19/24 16:02> Follow-up/Referrals: Sina,JOSE RAUL Babin [Primary Care Provider] - 2 Days <Lore Nguyen PA-C - Last Filed: 09/19/24 16:02>
--- NOTE | 2024-09-18 17:00 | ECG_ITS ---
Test Date: 2024-09-18 23:09:10 Measurements Intervals [place] Rate: 72 P: 76 CT: 191 QRS: 64 QRSD: 124 T: 0 QT: 401 QTc: 441 Interpretive Statements SINUS RHYTHM WITH OCCASIONAL SUPRAVENTRICULAR PREMATURE COMPLEXES RIGHT BUNDLE BRANCH BLOCK BASELINE ARTIFACT- II, III, AVR, AVL, AVF, V1-V2, V4-V6 ABNORMAL ECG No previous ECG available for comparison Electronically Signed On 09-19-2024 06:33:57 CDT by Ramin Ingram D.O.
[2024-09-18 23:20] VITALS: BP 152/88; PULSE 65; RESP 15; O2SAT 100
[2024-09-18 23:22] LABS: Basophils Percent Auto 0.2 % (0.2-1.2); Hematocrit 35.9 % (37.0-47.0); Immature Granulocyte Absolute 0.02 K/mm3 (0.00-0.031); Immature Granulocyte Percent A 0.4 % (0-0.5); Lymphocytes Percent Auto 17.1 % (18.3-44.2); Mean Corpuscular HGB Conc 36.2 g/dl (32-36); Mean Corpuscular Hemoglobin 31.2 pg (26-34); Mean Corpuscular Volume 86.1 fl (80-100); Mean Platelet Volume 8.4 fl (7.4-10.4); Monocytes Absolute Auto 0.3 K/mm3 (0.1-0.6); Monocytes Percent Auto 6.4 % (2.6-8.5); Neutrophils Absolute Auto 3.6 K/mm3 (1.3-6.7); Neutrophils Percent Auto 75.9 % (45.5-73.1); Platelet Count Result 292 k/mm3 (150-375); Red Blood Count 4.17 M/mm3 (4.2-5.4); Red Cell Distribution Width 13.7 % (11.5-14.5); White Blood Count 4.7 K/mm3 (4.5-10.0)
[2024-09-18 23:39] LABS: Alanine Aminotransferase 16 U/L (6-35); Albumin Level 4.6 g/dL (3.5-5.1); Alkaline Phosphatase 62 U/L (38-126); Anion Gap 10 mmol/L (4-12); Aspartate Amino Transferase 26 U/L (14-36); Bilirubin,Total 0.5 mg/dL (0.2-1.3); Blood Urea Nitrogen 12 mg/dL (7-17); Calcium 9.7 mg/dL (8.4-10.2); Carbon Dioxide 26 mmol/L (22-30); Chloride 94 mmol/L (98-107); Estimated CRCL calculation 53 ml/min; Estimated Glomerular Filt Rate > 60; Glucose 126 mg/dL (65-110); Potassium 3.8 mmol/L (3.4-5.0); Sodium 130 mmol/L (137-145)
[2024-09-18 23:58] LABS: Influenza A QL RT-PCR Negative (Negative); Influenza B QL RT-PCR Negative (Negative); RSV RNA, RT-PCR Negative (Negative); SARS-CoV-2 RNA PCR Negative (Negative)
[2024-09-19] VITALS: O2SAT 100
[2024-09-19 00:30] VITALS: BP 159/73; PULSE 67; RESP 15; O2SAT 97
== END 2024-09-19 01:12 | disposition home or self-care (01) ==
PROVIDERS: Physician Assistant; Emergency Provider Emergency Medicine; PCP Nurse Practitioner Family
DX: J44.9 Chronic obstructive pulmonary disease, unspecified (principal); Z87.891 Personal history of nicotine dependence; Z20.822 Contact with and (suspected) exposure to COVID-19
CPT/HCPCS: 36415; 71046; 80053; 85025; 87637; 93005; 99281

== ENCOUNTER 2025-05-25 14:39 | Emergency (ER) | payer MEDICARE, SELFPAY ==
[2025-05-25] VITALS (8 sets, daily range): BP systolic 143–169; BP diastolic 63–87; PULSE 73–93; RESP 12–20; TEMP 36.3–36.7; O2SAT 96–99
--- NOTE | ~2025-05-25 | CT_ITS ---
EXAMINATION: CTA chest PE protocol DATE: 05/25/2025 20:26 INDICATION: sob, hx copd, +dimer TECHNIQUE: Computed tomography angiography (CTA) of the chest was performed with 100 mL Omnipaque-350 intravenous contrast timed to evaluate the pulmonary arteries. Coronal maximum intensity projection 3D-reconstructions were created by the technologist. The dose-length product (DLP) was 195.88 mGy-cm. Automated exposure control and iterative reconstruction technique were employed. COMPARISON: X-ray chest, same date; CT chest 02/15/2023. FINDINGS: Lung parenchyma and airways: Motion artifact. Biapical pleural scarring. Emphysematous change. Patent airways. Pleura: Unremarkable. Thoracic inlet, axillae and chest wall: Unremarkable. Thoracic aorta: No significant dilation. No dissection. Atherosclerotic calcifications. Mediastinum: Normal. Heart and pericardium: Cardiomegaly. No significant pericardial effusion. Coronary artery calcifications: Moderate. Upper abdomen: No significant finding. Bones: No acute osseous finding. Pulmonary arteries: Study quality: Motion artifact obscures right middle lobe and bilateral lower lob e segmental and subsegmental pulmonary arteries. No pulmonary emboli detected in the adequately visua lized vessels. IMPRESSION: Limited evaluation of the segmental and subsegmental pulmonary arteries in the right middle lobe and bilateral lower lobes due to motion artifact. No pulmonary emboli detected in the adequately visualiz ed pulmonary arteries. No acute process detected in the chest. Reviewed, dictated and finalized at location K. IMPRESSION: Limited evaluation of the segmental and subsegmental pulmonary arteries in the right middle lobe and bilateral lower lobes due to motion artifact. No pulmonar y emboli detected in the adequately visualized pulmonary arteries. No acute pro cess detected in the chest.
--- NOTE | ~2025-05-25 | XR_ITS ---
EXAMINATION: XR chest 2V Exam Date/Time: 05/25/2025 17:29 CDT HISTORY: sob Comparison: 09/18/2024. RESULT: Lines, tubes, and devices: Cholecystectomy clips. Lungs and pleura: No focal consolidation, pleural effusion, or pneumothorax. Mild apical pleural sca rring. Emphysematous/senescent change. Chronic right posterior costophrenic angle blunting and bibasi lar scar. Cardiomediastinal silhouette: Stable. Other: No acute osseous or upper abdominal finding. IMPRESSION: No acute cardiopulmonary process. Reviewed, dictated and finalized at location K.
--- OUTSIDE RECORDS SUMMARY | 2025-05-25 14:42 | XMS_ITS | Encounter Summary ---
Author Organization [facility] Healthcare Address [address] [place] [address] Care Team Providers Care Mission Support Specialist Name Role Phone Talya Andino NP Primary Care Provider [phone] Encounter Details Date Type Department Care Team (Late Contact Info) Description 09/18/2024 Orders Only [facility] [place] Health Information Management [address] [place] [id number] Talya Andino NP [address] [facility] [address] [place] [address] Social History Tobacco Use Types Packs/Day Years Used Date Smoking Tobacco: Former Cigarettes 0 54 1 2021 Smokeless Tobacco: Former AUDIT-C Answer Date Recorded Q1: How often do you have a drink containing alc ohol? Never 08/15/2022 Q2: How many drinks containi ng alcohol do you have on a typical day when you are drinking? 1 or 2 08/15/2022 Q3: How often do you have six or more drinks on one occasion? 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 Gender Identity Not on file Sexual Orientation Not on file documented as of this encounter Plan of Treatment Upcoming Encounters Date Type Department Care Team (Late Contact Info) Description 05/25/2025 3:15 PM CDT Office Visit [facility] at [address] [address] Prudence Gautam PA [address] [facility] [address] [place] [address] COPD with exacerbation (HCC) (Primary Dx) documented as of this encounter Procedures Procedure Name Priority Date/Time Associated Diagnosis Comments SCAN - RADIOLOGY/IMAGING 09/18/2024 documented in this encounter Results * SCAN - RADIOLOGY/IMAGING (09/18/2024) Anatomical Region Laterality Modality Other us Talya Andino NP Final Result documented in this encounter Visit Diagnoses Not on filedocumented in this encounter Additional Health Concerns Infection Onset Date Last Indicated Resolved Time COVID: Suspected 05/23/2025 05/23/2025 05/23/2025 3:44 PM CDT documented as of this encounter Care Teams Mission Support Specialist Relationship Specialty Start Date End Date Talya Andino, BRIQUETTE MAKER [address] [facility] [address] [place] [address] PCP - General Internal Medicine 03/27/24 documented as of this encounter
--- OUTSIDE RECORDS SUMMARY | 2025-05-25 14:42 | XMS_ITS | Patient Health Record ---
Author Organization [facility] [employer] [place] ([address]) Address [address] [place] [address] Care Team Providers Care Palliative Medicine Physician Name Role Phone Yasmin Abraham Primary Care Provider Unavailab Leann Guaman Unavailable [phone] Lore Padilla Unavailable Unavailable Allergies Allergen (clinical drug ingredient) Drug/Non Drug Allergy documented on EMR Reaction Allergy Type Onset Date Status Penicillin hives Drug Allergy Active Reason For Referral No Information Medications Medication SIG (Take, Route, Frequency, Duration) Notes Start Date End Date Status IPRATROPIUM 500 mcg/2.5 mL 2.5 mL by nebulizer 4 times a day Active Ipratropium [place] 0.02 % 2.5 mL by nebulizer 4 times a day Active HYDROXYZINE hydrochloride 10 mg 2 tab(s) orally Qday, PRN Active ALBUTEROL 2.5 mg/3 mL (0.083%) 3 mL by nebulizer every 6 hours Active TRELEGY ELLIPTA 100/62.5/25 mcg 1 inhalation PO Qday Active SACCHAROMYCES BOULARDII LYO 250 mg 1 cap(s) orally 2 times a day Active Wixela Inhub 100 MCG-50 MCG 1 INH INHALED 2 TIMES A DAY; Duration: 30 DAY(S) *Please review and pick correct strength-formulatio n from Medispan options. If intended option is not shown, discontinue and re-order from Quick Search* Active OMEGA-3 1000 mg 1 cap(s) orally once a day; Duration: 30 day(s) Active Glucosamine Sulfate 500 MG 1 tab(s) orally 3 times a day; Duration: 30 day(s) Active BIOTIN 5000 mcg 1 tab(s) orally once a day Active POTASSIUM CHLORIDE 10 mEq 1 cap(s) orally 2 times a day Active Spiriva HandiHaler 18 MCG 1 cap(s) inhaled once a day; Duration: 30 day(s) Active Albuterol Sulfate (2.5 MG/3ML) 0.083% 3 mL by nebulizer every 6 hours Active Biotin 5 MG 1 tab(s) orally once a day Active ALBUTEROL (EQV-PROAIR HFA) 90 MCG/INH 2 PUFF(S) INHALED EVERY 6 HOURS *Please review for potential replacement for e-prescription and drug interaction check* Active SPIRIVA HANDIHALER 18 mcg 1 cap(s) inhaled once a day; Duration: 30 day(s) Active Potassium Chloride ER 10 MEQ 1 cap(s) orally 2 times a day Active WIXELA INHUB 100 mcg-50 mcg 1 INH inhaled 2 times a day; Duration: 30 day(s) Active Saccharomyces boulardii 250 MG 1 cap(s) orally 2 times a day Active Trelegy Ellipta 100/62.5/25 MCG 1 INHALATION PO QDAY *Please review and pick correct strength-formulatio n from [employer] options. If intended option is not shown, discontinue and re-order from Quick Search* Active GLUCOSAMINE 500 mg 1 tab(s) orally 3 times a day; Duration: 30 day(s) Active [place]aver-3 1000 MG 1 cap(s) orally once a day; Duration: 30 day(s) Active hydrOXYzine HCl 10 MG 2 tab(s) orally Qday, PRN Active Immunizations Vaccine Route Administration Date Status Comme nts H1N1 Influenza Unknown 09/28/2023 Administered Portal I nformation NOC PedvaxHIB IM Intramuscular 03/28/2023 Administered NOC Pneumovax 23 IM Intramuscular 03/28/2023 Administered NOC Pneumovax 23 IM Intramuscular 03/28/2023 Administered Social History Tobacco Use: Social History Observation Description Date Details (start date - stop date) Former Smoker NA - NA Smoking Smart Form: Question Answer Notes Are you a: former smoker Problems Problem Type SNOMED Code ICD Code Onset Dates Problem Status W/U Status Risk Notes Problem Chronic rhinitis (81672030) Chronic rhinitis (J31.0) Active confirmed Problem Chronic rhinitis (08889032) Chronic rhinitis (J31.0) Active confirmed Problem Pneumonia (185333046) Pneumonia, unspecified organism (J18.9) Active confirmed Problem Chronic obstructive pulmonary disease (24604823) Chronic obstructive pulmonary disease, unspecified (J44.9) Active confirmed Problem 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, 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 Plan Of Treatment No Information Insurance Providers Payer Name Payer Address Payer Phone Subscriber Number Group Number Insured Name Patient Relationship to Insured Coverage Start Date Coverage End Date [employer] [address] [address] [place] [address] [id number] Angella Espinoza Self - patient is the insured Medical (General) History Medical History History ICD Code Pneumonia, unspecified organism J18.9 Immunodeficiency with predominantly anti body defects, unspecified D80.9 Chronic obstructive pulmonary disease, u nspecified J44.9 Surgical History Surgery Date(Month/Year) Stapedectomy 09/10/2023 Hysterectomy Cholecystectomy Hospitalization History Reason Date(Month/Year) Pneumonia 2021 Hyponatremia 2021
--- OUTSIDE RECORDS SUMMARY | 2025-05-25 14:42 | XMS_ITS | Clinical Summary ---
Author Organization [facility] Address [address] [place] [address] Care Team Providers Care Maternity Floor Supervisor Name Role Phone Keily Ramesh MD Primary Care Provider [phone] Social History Tobacco Use Types Packs/Day Years Used Date Smoking Tobacco: Never Assessed Comments Unknown Sex and Gender Information Value Date Recorded Sex Assigned at Not on file Legal Sex Female 6:41 PM CDT Gender Identity Not on file Sexual Orientation Not on file Plan of Treatment Health Maintenance Due Date Last Done Comments Hepatitis C 1963 DTaP, Tdap and Td Vaccines ( 1 - Tdap) 1965 Pneumococcal Vaccine: 50+ Ye ars (1 of 1 - PCV) 1996 Zoster Vaccines (1 of 2) 1996 Dexa Scan (General) 2011 RSV Immunization or 60+ Years (1 - 1-dose 75+ series) 2021 COVID-19 Vaccine ( - 2023-2 5 season) 2024 Meningococcal B Vaccine Aged Out No l onger eligible based on patient's age to complete this topic Meningococcal Vaccine Aged Out No gayle jerardo eligible based on patient's age to complete this topic RSV Immunizations Under 20 Months Aged Out No longer eligible based on patient's age to complete this topic Care Teams Maternity Floor Supervisor Relationship Specialty Start Date End Date Keily Ramesh MD [address] [facility] [address] [place] [address] PCP - General 11/22/13
--- OUTSIDE RECORDS SUMMARY | 2025-05-25 14:42 | XMS_ITS ---
Author Organization [employer] [place] ([address]) Address [address] [place] [address] Care Team Providers Care Wildlife Enforcement Major Name Role Phone Leigh Yasmin Primary Care Provider Unavailab Leann Guaman Unavailable [phone] Lore Padilla Unavailable Unavailable [employer], Provider Unavailable Unavailab le Allergies Allergen (clinical drug ingredient) Drug/Non Drug Allergy documented on EMR Reaction Allergy Type Onset Date Status Penicillin hives Drug Allergy Active REASON FOR VISIT [facility] Conversion Encounter Medications Medication SIG (Take, Route, [...] orally 2 times a day Active Ipratropium [place] 0.02 % 2.5 mL by nebulizer 4 [...] discontinue and re-order from Quick Search* Active Mcrae [place]-3 1000 MG 1 cap(s) orally once a [...] Active Encounters Encounter Location Date Provider Diagnosis [address] [address] 05/03/2024 Provider Mayda Chronic obstructive pulmonary disease, [...] for e-prescription and drug interaction check* Ipratropium [place] 0.02 % 2.5 mL by nebulizer 4 times a day Trelegy Ellipta 100/62.5/25 MCG 1 INHALATION PO QDAY *Please rev iew and pick correct strength-formulation from Medispan options. If intended option is not shown, discontinue and re-order from Quick Search* Progress Notes * Angella LOZADOB: 6 (80 yo F)Acc No.[id number]:05/03/2024 Patient: Angella FARLEY Provider: Shakira Ko :1945 A ge:79 Y S ex:Female Date:05/03/2024 Address:[facility] [address] [place], [id number] Pcp:Yasmin Abraham Subjective: * Chief Complaints: * 1 . [facility] * Medical History: * Medications: T aking Spiriva HandiHaler 18 MCG Capsule 1 cap(s) inhaled once a day , Taking Wixela Inhub 100 MCG-50 MCG POWDER 1 INH INHALED 2 TIMES A DAY , Notes to Pharmacist: *Please review and pick correct strength-formulation from [facility] options. If intended option is not shown, discontinue and re-order from Quick Search*, Taking Glucosamine Sulfate 500 MG Tablet 1 tab(s) orally 3 times a day , Taking Saccharomyces boulardii 250 MG Capsule 1 cap(s) orally 2 times a day , Taking Mcrae [place]-3 1000 MG Capsule 1 cap(s) orally once [...] * Electronic signature of Peg [employer] on 05/25/2025 at 02:40 PM CDT Sign off status: Pending * Provider: Shakira perez Migration Date: 0 05/03/2024 Generated for Mark hopkins/Anival/Kemar on: 0 05/25/2025 02:40 PM CDT
--- OUTSIDE RECORDS SUMMARY | 2025-05-25 14:42 | XMS_ITS | Data Portability ---
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 [email or web address] Not available 10/09/2023 11:21:57 Plan of Treatment Reminders Order Date Submit Date Provider Last Modified By Organization Details Last Modified Time Details Appointments None recorded. Lab BMP, serum or plasma 2023 024 [facility], [address] [place], [address], 4 20:13:02 BMP, serum or plasma 2023 024 [facility], [address] [facility], [place], [address], 4 04:06:48 BMP, serum or plasma 2022 023 [facility], [address] [place], [address], 3 11:11:04 Referral formerly [facility] referral - PT/OT eval and treat Please call patient to schedule appointment . 2022 023 [email or web address] [facility], [address] [place] [address], [address], 4 10:55:[address] referral - Please call patient to schedule appointment . 2022 023 [email or web address] Clinton Whittington MD, [address] [place], [address], 4 10:55:46 Procedures None recorded. Surgeries None recorded. Imaging XR, foot, 3 or more view 2022 023 [email or web address] [facility] Michelle Goss, [address], [place], [address], 3 14:56:47 Medication Orders amlodipine 2.5 mg tablet 2023 024 [facility] #89115, [address] [place] [address], [id number], 4 09:29:00 amlodipine 5 mg tablet 2023 024 [facility]02009, [address] [place] [address], [id number], 4 09:28:59 potassium chloride ER 10 mEq tablet,exte nded release 2023 024 [facility]31209, [address] [place] [address], [id number], 4 09:28:58 albuterol sulfate HFA 90 mcg/actuati on aerosol inhaler 2023 024 [facility], [address] [place] [address], [id number], 4 09:29:04 gabapentin 300 mg capsule 2023 024 [facility] #84298, [address] [place] [address], [id number], 4 09:28:59 ipratropium 0.5 mg-albutero l 3 mg (2.5 mg base)/3 mL nebulizatio n soln 2023 024 [facility] #00531, [address] [place] [address], [id number], 4 09:27:17 cyclobenzap rine 5 mg tablet 2022 023 [facility] #90263, [address] [facility] [address] [place] [address], [id number], 3 11:46:21 levofloxaci n 750 mg tablet 2022 023 [email or web address] [facility] #45382, [address] [facility] [address] [place] [address], [id number], 3 11:37:31 Patient TargetsNo targets recorded. Patient Instructions Encounter Date Encounter Id Patient Instructions Last Modified By Organization Details Last Modified Time 10/09/2023 [id number] Thank you for your visit to our office today. We would like to request that you reach out to your referring or previous provider and request that they send us a Summary of Care in electronic form, so that we may have it on file in your medical record. At your visit, we had the medical records we needed to provide you with the best possible care; however, for insurance purposes, an electronic Summary of Care is beneficial. Thank you for your assistance in obtaining this information and we look forward to providing continued care to you. Please review your medication list from the Summary of Care for this visit. If there are any differences from what you are currently taking at home, please call us to discuss. [email or web address] Not available 10/09/2023 11:21:57 Homebound Status : Required Home Health Services: Durable Medical Equipment needed: Billing Guidelines CPT code 27218- Transitional Care Management services with moderate medical decision complexity (krzw-ha-iwby visit within 14 days of discharge). CPT code 72504- Transitional Care Management services with high medical decision complexity (jyeh-dm-[id number] visit within 7 days of discharge). [email or web address] Not available 10/09/2023 11:21:57 Reason for Referral Home Health Referral for Lef t side sciatica PT/OT eval and treat Please call patient to schedule appointment. 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 Referring Physician: Tristan Abraham, [facility], Encounter Date: 10/09/2023 Results Created Date Observation Date Name Description Value Unit Range Abnormal Flag Note LastModifiedBy Organization Detail LastModifiedTime 10/08/2010/09/2023 BASIC METAB OLIC PANEL glucose 87 mg/dL 65-99 normal Fasti ng refer ence inter jose roberto Not Available [facility] [email or web address] [address], [address], 10/09/2023 06:08:27 10/08/20 23 10/09/2023 BASIC METAB OLIC PANEL urea nitrogen (BUN) 10 mg/dL 7-25 normal Not Available [facility] [employer] [place] [address] [address] [place], [address], 10/09/2023 06:08:27 10/08/20 23 10/09/2023 BASIC METAB OLIC PANEL creatinine 0.82 mg/dL 0.60-1 .00 normal Not Available [facility] [employer] [address], [address], 10/09/2023 06:08:27 10/08/20 23 10/09/2023 BASIC METAB OLIC PANEL eGFR 74 mL/mi n/1.7 3m2 > or = 60 normal Not Available [facility] [employer] [address], [address], 10/09/2023 06:08:27 10/08/20 23 10/09/2023 BASIC METAB OLIC PANEL BUN/creatini ne ratio SEE NOTE: (calc ) 6-22 Not Repor lory: BUN and Creat inine are withi n refer ence range . Not Available [address], [address], 10/09/2023 06:08:27 10/08/20 23 10/09/2023 BASIC METAB OLIC PANEL sodium 134 mmol/ L 135-14 6 low Not Available [address], [address], 10/09/2023 06:08:27 10/08/20 23 10/09/2023 BASIC METAB OLIC PANEL potassium 3.8 mmol/ L 3.5-5. 3 normal Not Available [address], [address], 10/09/2023 06:08:27 10/08/20 23 10/09/2023 BASIC METAB OLIC PANEL chloride 99 mmol/ L 98-110 normal Not Available [address], [address], 10/09/2023 06:08:27 10/08/20 23 10/09/2023 BASIC METAB OLIC PANEL carbon dioxide 24 mmol/ L 20-32 normal Not Available [address], [address], 10/09/2023 06:08:27 10/08/20 23 10/09/2023 BASIC METAB OLIC PANEL calcium 9.2 mg/dL 8.6-10 .4 normal Not Available [address], [address], 10/09/2023 06:08:27 10/20/20 23 10/21/2023 BASIC METAB OLIC PANEL glucose 73 mg/dL 65-99 normal Fasti ng refer ence inter jose roberto Not Available [address], [address], 10/22/2023 11:11:04 10/20/20 23 10/21/2023 BASIC METAB OLIC PANEL urea nitrogen (BUN) 9 mg/dL 7-25 normal Not Available [address] [address] [place], [address], 10/22/2023 11:11:04 10/20/20 23 10/21/2023 BASIC METAB OLIC PANEL creatinine 0.64 mg/dL 0.60-1 .00 normal Not Available [email or web address] [address] [address] [place], [address], 10/22/2023 11:11:04 10/20/20 23 10/21/2023 BASIC METAB OLIC PANEL eGFR 91 mL/mi n/1.7 3m2 > or = 60 normal Not Available [email or web address] [address] [address] [place], [address], 10/22/2023 11:11:04 10/20/20 23 10/21/2023 BASIC METAB OLIC PANEL BUN/creatini ne ratio SEE NOTE: (calc ) 6-22 Not Repor lory: BUN and Creat inine are withi n refer ence range . Not Available [address] [address] [place], [address], 10/22/2023 11:11:04 10/20/20 23 10/21/2023 BASIC METAB OLIC PANEL sodium 137 mmol/ L 135-14 6 normal Not Available [email or web address] [place] [address] [address] [place], [address], 10/22/2023 11:11:04 10/20/20 23 10/21/2023 BASIC METAB OLIC PANEL potassium 4.1 mmol/ L 3.5-5. 3 normal Not Available [email or web address] [address] [address] [place], [address], 10/22/2023 11:11:04 10/20/20 23 10/21/2023 BASIC METAB OLIC PANEL chloride 102 mmol/ L 98-110 normal Not Available [email or web address] [address] [address] [place], [address], 10/22/2023 11:11:04 10/20/20 23 10/21/2023 BASIC METAB OLIC PANEL carbon dioxide 27 mmol/ L 20-32 normal Not Available [address], [address], 10/22/2023 11:11:04 10/20/20 23 10/21/2023 BASIC METAB OLIC PANEL calcium 9.3 mg/dL 8.6-10 .4 normal Not Available [address], [address], 10/22/2023 11:11:04 12/05/19 24 12/06/2023 BASIC METAB OLIC PANEL glucose 95 mg/dL 65-99 normal Fasti ng refer ence inter jose roberto Not Available [address], [address], 12/06/2023 04:06:47 12/05/19 24 12/06/2023 BASIC METAB OLIC PANEL urea nitrogen (BUN) 13 mg/dL 7-25 normal Not Available [address], [address], 12/06/2023 04:06:47 12/05/19 24 12/06/2023 BASIC METAB OLIC PANEL creatinine 0.76 mg/dL 0.60-1 .00 normal Not Available [address], [address], 12/06/2023 04:06:47 12/05/19 24 12/06/2023 BASIC METAB OLIC PANEL eGFR 81 mL/mi n/1.7 3m2 > or = 60 normal Not Available [address], [address], 12/06/2023 04:06:47 12/05/19 24 12/06/2023 BASIC METAB OLIC PANEL BUN/creatini ne ratio SEE NOTE: (calc ) 6-22 Not Repor lory: BUN and Creat inine are withi n refer ence range . Not Available [address], [address], 12/06/2023 04:06:47 12/05/19 24 12/06/2023 BASIC METAB OLIC PANEL sodium 134 mmol/ L 135-14 6 low Not Available [address], [address], 12/06/2023 04:06:47 12/05/19 24 12/06/2023 BASIC METAB OLIC PANEL potassium 4.0 mmol/ L 3.5-5. 3 normal Not Available [address], [address], 12/06/2023 04:06:47 12/05/19 24 12/06/2023 BASIC METAB OLIC PANEL chloride 101 mmol/ L 98-110 normal Not Available [address], [address], 12/06/2023 04:06:47 12/05/19 24 12/06/2023 BASIC METAB OLIC PANEL carbon dioxide 27 mmol/ L 20-32 normal Not Available [address], [address], 12/06/2023 04:06:47 12/05/19 24 12/06/2023 BASIC METAB OLIC PANEL calcium 9.3 mg/dL 8.6-10 .4 normal Not Available [address], [address], 12/06/2023 04:06:47 12/21/19 24 12/22/2023 BASIC METAB OLIC PANEL glucose 96 mg/dL 65-139 normal Non-f astin g refer ence inter jose roberto Not Available [address], [address], 12/22/2023 05:49:47 12/21/19 24 12/22/2023 BASIC METAB OLIC PANEL urea nitrogen (BUN) 11 mg/dL 7-25 normal Not Available [address] [address] [place], [address], 12/22/2023 05:49:47 12/21/19 24 12/22/2023 BASIC METAB OLIC PANEL creatinine 0.66 mg/dL 0.60-1 .00 normal Not Available [facility] [address] [address] [place], [address], 12/22/2023 05:49:47 12/21/19 24 12/22/2023 BASIC METAB OLIC PANEL eGFR 90 mL/mi n/1.7 3m2 > or = 60 normal Not Available [email or web address] [address] [address] [place], [address], 12/22/2023 05:49:47 12/21/19 24 12/22/2023 BASIC METAB OLIC PANEL BUN/creatini ne ratio SEE NOTE: (calc ) 6-22 Not Repor lory: BUN and Creat inine are withi n refer ence range . Not Available [email or web address] [address] [address] [place], [address], 12/22/2023 05:49:47 12/21/19 24 12/22/2023 BASIC METAB OLIC PANEL sodium 134 mmol/ L 135-14 6 low Not Available [email or web address] [address] [address] [place], [address], 12/22/2023 05:49:47 12/21/19 24 12/22/2023 BASIC METAB OLIC PANEL potassium 4.0 mmol/ L 3.5-5. 3 normal Not Available [email or web address] [address] [address] [place], [address], 12/22/2023 05:49:47 12/21/19 24 12/22/2023 BASIC METAB OLIC PANEL chloride 100 mmol/ L 98-110 normal Not Available [email or web address] [address] [address] [place], [address], 12/22/2023 05:49:47 12/21/19 24 12/22/2023 BASIC METAB OLIC PANEL carbon dioxide 28 mmol/ L 20-32 normal Not Available [address], [address], 12/22/2023 05:49:47 12/21/19 24 12/22/2023 BASIC METAB OLIC PANEL calcium 9.0 mg/dL 8.6-10 .4 normal Not Available [address], [address], 12/22/2023 05:49:47 03/03/20 24 03/04/2024 BASIC METAB OLIC PANEL glucose 128 mg/dL 65-139 normal Non-f astin g refer ence inter jose roberto Not Available [address], [address], 03/04/2024 20:13:02 03/03/20 24 03/04/2024 BASIC METAB OLIC PANEL urea nitrogen (BUN) 11 mg/dL 7-25 normal Not Available [address], [address], 03/04/2024 20:13:02 03/03/20 24 03/04/2024 BASIC METAB OLIC PANEL creatinine 0.64 mg/dL 0.60-1 .00 normal Not Available [address], [address], 03/04/2024 20:13:02 03/03/20 24 03/04/2024 BASIC METAB OLIC PANEL eGFR 90 mL/mi n/1.7 3m2 > or = 60 normal Not Available [address], [address], 03/04/2024 20:13:02 03/03/20 24 03/04/2024 BASIC METAB OLIC PANEL BUN/creatini ne ratio SEE NOTE: (calc ) 6-22 Not Repor lory: BUN and Creat inine are withi n refer ence range . Not Available [address], [address], 03/04/2024 20:13:02 03/03/20 24 03/04/2024 BASIC METAB OLIC PANEL sodium 136 mmol/ L 135-14 6 normal Not Available [address], [address], 03/04/2024 20:13:02 03/03/20 24 03/04/2024 BASIC METAB OLIC PANEL potassium 3.8 mmol/ L 3.5-5. 3 normal Not Available [address], [address], 03/04/2024 20:13:02 03/03/20 24 03/04/2024 BASIC METAB OLIC PANEL chloride 101 mmol/ L 98-110 normal Not Available [address], [address], 03/04/2024 20:13:02 03/03/20 24 03/04/2024 BASIC METAB OLIC PANEL carbon dioxide 28 mmol/ L 20-32 normal Not Available [address], [address], 03/04/2024 20:13:02 03/03/20 24 03/04/2024 BASIC METAB OLIC PANEL calcium 9.2 mg/dL 8.6-10 .4 normal Not Available [address], [address], 03/04/2024 20:13:02 09/04/20 23 XR, foot, 3 or more view No observ ation record ed. [email or web address] [facility] Michelle Goss [address], [place], [address], 09/04/2023 08:55:58 09/23/20 23 09/23/2023 XR, chest No observ ation record ed. [email or web address] [address], [place], [address], 09/24/2023 12:42:44 09/25/2009/25/2023 XR, chest No observ ation record ed. [email or web address] [address], [place], [address], 10/04/2023 13:13:11 09/26/20 23 09/26/2023 MRI, lumba r spine , w/o contr ast No observ ation record ed. [email or web address] [address] [place] [address] [facility] [address], [place], [address], 10/04/2023 13:14:03 09/26/2009/26/2023 MRI, chest + abdom en + pelvi s, w/o contr ast No observ ation record ed. [email or web address] [address], [place], [address], 10/04/2023 13:16:36 10/01/20 XR, foot, 3 or more view No observ ation record ed. [email or web address] [facility] [place] [address] [facility] [address], [place], [address], 10/01/2023 11:39:00 10/29/20 23 XR, foot, 3 or more view No observ ation record ed. [email or web address] [facility] [place] [address] [facility] [address], [place], [address], 10/29/2023 14:56:45 Result Notes None recorded. Problems Name Problem SNOMED Code Status Onset Date Resolution Date Notes Provider Name and Address Organization Details Recorded Time Chronic obstructiv e pulmonary disease 76765940 Active 2021 Not Available [facility] 3 11:28:11 Closed fracture of distal end of radius 20108601 Active 2021 Not Available [facility] 3 11:28:11 Pneumonia 998155706 Active 2021 Not Available [facility] 3 11:28:11 Abnormal findings on diagnostic imaging of lung 351275339 Active 2021 Not Available [facility] 3 11:28:11 Pain of left wrist 0465822372003 02 Active 2021 Not Available [facility] 3 11:28:12 Dyspnea on exertion 72755616 Active 2021 Not Available [facility] 3 11:28:12 Chronic cough 06935316 Active 2021 Not Available [facility] 3 11:28:12 Pulmonary emphysema 46912083 Active 2021 Not Available [facility] 3 11:28:12 Dyspnea 494097371 Active 2022 Not Available [facility] 3 11:28:11 Atrophic vaginitis 18403536 Active 2022 Not Available [facility] 3 11:28:12 Loss of hair 679907667 Active 2022 Not Available [facility] 3 11:28:12 Atheroscle rosis of aorta 78814358 Active 2022 Not Available [facility] 3 11:28:12 Renal impairment 971346878 Active 2022 Not Available [facility] 3 11:28:11 Severe chronic obstructiv e pulmonary disease 456634119 Active 2022 Not Available [facility] 3 11:28:12 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 Not Available [facility] 3 11:28:12 Multiple nodules of lung 761607135 Active 2022 Not Available [facility] 3 11:28:12 Elevated blood-pres sure reading without diagnosis of hypertensi on 545545191 Active 2022 Not Available [facility] 3 11:28:12 Essential hypertensi on 59436109 Active 2022 Not Available [facility] 3 11:28:12 Tremor 61535623 Active 2022 Not Available [facility] 3 11:28:11 Hyperchole sterolemia 37766030 Active 2022 Not Available [facility] 3 11:28:11 Hyponatrem ia 30810893 Active 2022 Not Available [facility] 3 11:28:12 Pain in right foot 1659471358563 07 Active 2022 Not Available [facility] 3 11:28:12 Closed fracture of fifth metatarsal bone 36587411 Active 2022 Not Available [facility] 3 11:28:12 Arthritis 2174519 Active 2022 Not Available [facility] 3 11:28:12 Disorder of lung 76568388 Active 2022 Not Available [facility] 3 11:28:11 Closed fracture of fifth metatarsal bone of right foot 6884512437584 9109 Active 2022 Not Available [facility] 3 11:28:11 Low back pain 164992583 Active 2022 Not Available [facility] 3 11:28:12 Neuropathy 751179973 Active 2022 Not Available [facility] 3 11:28:12 Acute exacerbati on of chronic obstructiv e pulmonary disease 987873228 Active 2022 Not Available [facility] 3 11:28:11 Left side sciatica 5153159150960 04 Active 2022 Not Available [facility] 3 11:28:12 Heartburn 39701570 Active 2022 Not Available [facility] 3 11:28:11 Nausea 892868691 Active 2023 Tristan Abarham MD [address], [place] [address], [place], [address] , [facility] 4 14:12:01 Weight loss 63299656 Active 2023 Tristan Abraham MD [address], [facility] [address], [place], [address] , [place] [facility] 4 09:23:59 Problem Notes None recorded. Procedures Surgical History Date Name Laterality Status Provider Name and Address Organization Details Recorded Time 10/09/20 Transitional_Care _Management completed Luis Hamm RN [facility] [employer] [facility] 10/09/2023 11:21:57 Tonsillectomy completed Not Available [facility] 01/17/2023 10:41:35 Gallbladder Surgery completed Not Available [facility] 01/17/2023 10:41:35 Hysterectomy completed Not Available [facility] 01/17/2023 10:41:35 Imaging Results None recorded. Procedure Notes None recorded. Medical Equipment None Reported. Allergies Allergen ID Allergen Name Allergen Category Reaction Reaction Severity Criticality Documentation Date Start Date Code Code System Note Provider Name and Address Organization Details Recorded Time Product containin g penicilli n (product) medicatio n hives Not available Not available 01/17/2023 94460 8001 SNOMED Not Available [facility] 10:47:34 Medications Name Sig Start Date Stop Date Status Note LastModified by Organization Details LastModified Time Miralax 17 gram/dose oral powder Take by oral route. 08/21 completed Not Available Not Available Not Available potassium chloride ER 10 mEq capsule,ext ended release TAKE 1 CAPSULE BY MOUTH EVERY DAY active Not Available Not Available No t Available prednisone 10 mg tablet 10/09 completed Not Available Not Available Not Available atorvastati n 20 mg tablet Take 1 tablet every day by oral route for 90 days. active Not Available Not Available No t Available ipratropium 0.5 mg-albutero l 3 mg (2.5 mg base)/3 mL nebulizatio n soln USE 1 VIAL VIA NEBULIZER FOUR TIMES DAILY NEEDED FOR COPD EXACERBAT ION active Not Available Not Available No t Available clindamycin HCl 300 mg capsule active Not Available Not Available Not Available albuterol sulfate 2.5 mg/3 mL (0.083 %) solution for nebulizatio n USE 3 ML VIA NEBULIZER THREE TIMES DAILY NEEDED active Not Available Not Available No t Available azithromyci n 250 mg tablet TAKE 2 TABLETS BY MOUTH FOR 1 DAY THEN TAKE 1 TABLET BY MOUTH DAILY FOR 4 DAYS active Not Available Not Available No t Available indapamide 2.5 mg tablet 09/13 completed Not Available Not Available Not Available ofloxacin 0.3 % eye drops active Not Available Not Available Not Available tizanidine 4 mg tablet Take 1 tablet twice a day by oral route as needed for 30 days. active Not Available Not Available No t Available fluconazole 150 mg tablet active Not Available Not Available Not Available clarithromy valentin 500 mg tablet 07/08 completed Not Available Not Available Not Available ondansetron HCl 8 mg tablet TAKE 1 TABLET BY MOUTH THREE TIMES DAILY NEEDED 03/03 completed Not Available Not Available Not Available prednisone 20 mg tablet TAKE 3 TABLETS BY MOUTH DAILY FOR 3 DAYS THEN TAKE 2 TABLETS BY MOUTH DAILY FOR 3 DAYS THEN TAKE 1 TABLET BY MOUTH DAILY FOR 3 DAYS active Not Available Not Available No t Available dexamethaso ne 6 mg tablet active Not Available Not Available Not Available amlodipine 2.5 mg tablet 1 po q day with 5 mg tablet 2023 active Not Available Not Available Not Avai lable potassium chloride ER 10 mEq tablet,exte nded release TAKE 1 TABLET BY MOUTH EVERY DAY active Not Available Not Available No t Available levofloxaci n 250 mg tablet TAKE 1 TABLET BY MOUTH DAILY FOR 7 DAYS active Not Available Not Available No t Available amlodipine 5 mg tablet TAKE 1 TABLET BY MOUTH EVERY DAY WITH 2.5MG TABLET active Not Available Not Available No t Available doxepin 10 mg capsule 08/14 completed Not Available Not Available Not Available sulfamethox azole 800 mg-trimetho prim 160 mg tablet TAKE 2 TABLETS BY MOUTH TWICE DAILY FOR 5 DAYS 08/14 completed Not Available Not Available Not Available doxycycline monohydrate 100 mg tablet TAKE 2 TABLETS BY MOUTH TWICE DAILY FOR 10 DAYS 03/03 completed Not Available Not Available Not Available potassium chloride 20 mEq/15 mL oral liquid TK 7.5 ML PO QD 03/27 completed Not Available Not Available Not Available doxycycline monohydrate 100 mg capsule Take 1 capsule twice a day by oral route for 10 days. active Not Available Not Available No t Available triamcinolo ne acetonide 0.1 % topical ointment 08/21 completed Not Available Not Available Not Available losartan 25 mg tablet 03/21 completed Not Available Not Available Not Available docusate sodium 100 mg capsule Take 1 capsule every day by oral route. 09/03 completed Not Available Not Available Not Available gabapentin 300 mg capsule TAKE 1 CAPSULE BY MOUTH FOUR TIMES DAILY NEEDED active Not Available Not Available No t Available budesonide 0.25 mg/2 mL suspension for nebulizatio n MIX 1 VIA WITH 8OZ OF SALINE AND U INTRANASA LLY UTD BID 08/14 completed Not Available Not Available Not Available diclofenac sodium 75 mg tablet,angelina yed release TK 1 T PO BID PRN active Not Available Not Available No t Available montelukast 10 mg tablet 08/14 completed Not Available Not Available Not Available mupirocin 2 % topical ointment U UTD WITH SALINE 08/14 completed Not Available Not Available Not Available azelastine 137 mcg (0.1 %) nasal spray 08/14 completed Not Available Not Available Not Available diazepam 10 mg tablet TAKE 1 TABLET BY MOUTH ONE HOUR BEFORE APPOINTME NT active Not Available Not Available No t Available cefuroxime axetil 500 mg tablet 07/08 completed Not Available Not Available Not Available levofloxaci n 500 mg tablet TAKE 1 TABLET BY MOUTH EVERY DAY FOR 7 DAYS 08/14 completed Not Available Not Available Not Available levofloxaci n 750 mg tablet TAKE 1 TABLET BY MOUTH EVERY DAY FOR 7 DAYS DIRECTED 10/09 completed Not Available Not Available Not Available methylpredn isolone 4 mg tablets in a dose pack 07/08 completed Not Available Not Available Not Available albuterol sulfate HFA 90 mcg/actuati on aerosol inhaler INHALE 2 PUFFS BY MOUTH EVERY 4 TO 6 HOURS NEEDED active Not Available Not Available No t Available ipratropium bromide 42 mcg (0.06 %) nasal spray USE 2 SPRAYS IN EACH NOSTRIL THREE TIMES DAILY NEEDED FOR NASAL CONGESTIO N OR DRAINAGE active Not Available Not Available No t Available hydroxyzine HCl 10 mg tablet TAKE 1 TABLET BY MOUTH THREE TIMES DAILY NEEDED active Not Available Not Available No t Available ondansetron 4 mg disintegrat ing tablet DIS ONE T PO 1 HOUR PRIOR TO SURGERY THEN DIS 1 T IF NEEDED Q 4 TO 6 H 07/08 completed Not Available Not Available Not Available cefdinir 300 mg capsule 09/13 completed Not Available Not Available Not Available fluticasone propionate 50 mcg/actuati on nasal spray,suspe nsion 08/14 completed Not Available Not Available Not Available doxycycline hyclate 100 mg tablet Take 1 tablet twice a day by oral route for 7 days. active Not Available Not Available No t Available diazepam 5 mg tablet TK 3 TS PO 1 HOUR B PRO THEN TK 1 T PO Q 6 H PRN active Not Available Not Available No t Available tobramycin 0.3 %-dexametha sone 0.1 % eye drops,suspe nsion active Not Available Not Available Not Available neomycin 3.5 mg/g-polymy yo B 10,000 unit/g-dexa meth 0.1 % eye oint APPLY TO RIGHT EYE TWICE DAILY 03/03 completed Not Available Not Available Not Available cyclobenzap rine 5 mg tablet TAKE 1/2 TO 1 TABLET BY MOUTH THREE TIMES DAILY NEEDED FOR SPASM active Not Available Not Available No t Available Premarin 0.625 mg/gram vaginal cream INSERT 0.5 GRAMS VAGINALLY DAILY FOR 3 WEEKS, THEN TAKE ONE WEEK OFF active Not Available Not Available No t Available Spiriva with HandiHaler 18 mcg and inhalation capsules 10/03 completed Not Available Not Available Not Available docusate sodium active Not Available Not Available Not Available sodium chloride 1,000 mg soluble tablet TAKE 1 TABLET BY MOUTH EVERY DAY active Not Available Not Available No t Available Combivent Respimat 20 mcg-100 mcg/actuati on solution for inhalation INHALE 1 PUFF BY MOUTH FOUR TIMES DAILY NEEDED FOR SHORTNESS OF BREATH OR WHEEZING. SPACE EVENLY WHILE AWAKE active Not Available Not Available No t Available Ilevro 0.3 % eye drops,suspe nsion active Not Available Not Available Not Available Trelegy Ellipta 100 mcg-62.5 mcg-25 mcg powder for inhalation INHALE 1 PUFF BY MOUTH EVERY DAY DIRECTED 03/27 completed Not Available Not Available Not Available Wixela Inhub 250 mcg-50 mcg/dose powder for inhalation INHALE 1 PUFF BY MOUTH TWICE DAILY active Not Available Not Available No t Available Fluzone High-Dose 2019-20 (PF) 180 mcg/0.5 mL intramuscul ar syringe active Not Available Not Available N ot Available BinaxNOW COVID-19 Ag Self Test kit TEST DIRECTED TODAY 02/09 completed Not Available Not Available Not Available Paxlovid 300 mg (150 mg x 2)-100 mg tablets in a dose pack TAKE 2 TABLETS OF NIRMATREL VIR TABLETS AND 1 TABLET OF RITONAVIR TWICE DAILY FOR 5 DAYS 02/09 completed Not Available Not Available Not Available Vitals Date Recorded Body height Body mass index (BMI) Body weight Body temperature Heart rate Oxygen saturation Oxygen saturation in Arterial blood by Pulse oximetry Systolic And Diastolic Provider Name and Address Organization Details Last Updated DateTime 4 157.48 cm 22.5 kg/m2 57709.8 6 g 97.7 [degF] 77 /min 94 % 94 % 162/70 mm[Hg] Luis Hamm RN [facility] [employer] [facility] 4 09:10:18 Date Recorded Body height Body mass index (BMI) Body weight Body temperature Oxygen saturation Oxygen saturation in Arterial blood by Pulse oximetry Heart rate Systolic And Diastolic Provider Name and Address Organization Details Last Updated DateTime 4 157.48 cm 21.2 kg/m2 19292.7 1 g 97.9 [degF] 92 % 92 % 69 /min 142/80 mm[Hg] Luis Hamm RN [facility] [employer] [facility] 4 09:07:12 Date Recorded Body height Body temperature Provider N bev and Address Organization Details Last Updated DateTime 10/03/2023 157.48 cm 97.8 [degF] Kate Anthony MA [facility] [employer] [facility] 10/03/2023 11:16:39 Date Recorded Heart rate Oxygen saturation Oxygen saturation in Arterial blood by Pulse oximetry Systolic And Diastolic Provider Name and Address Organization Details Last Updated DateTime 10/03/2023 91 /min 95 % 95 % 122/70 mm[Hg] Elsa Mcclure MA [facility] [employer] [facility] 3 11:25:13 Date Recorded Body height Body mass index (BMI) Body weight Body temperature Heart rate Oxygen saturation Oxygen saturation in Arterial blood by Pulse oximetry Systolic And Diastolic Provider Name and Address Organization Details Last Updated DateTime 3 157.48 cm 22.5 kg/m2 40633.8 6 g 97.6 [degF] 108 /min 93 % 93 % 124/64 mm[Hg] Luis Hamm RN [facility] [employer] [facility] 3 11:25:07 Date Recorded Body height Body mass index (BMI) Body weight Heart rate Respiratory rate Oxygen saturation Oxygen saturation in Arterial blood by Pulse oximetry Systolic And Diastolic Provider Name and Address Organization Details Last Updated DateTime 3 157.48 cm 22.5 kg/m2 81627.8 6 g 82 /min 14 /min 97 % 97 % 162/87 mm[Hg] Nury Woodward [facility] 14:06:23 Social History Question Answer Notes LastModified by [employer] Details LastModified Time Tobacco Smoking Status Former Smoker Nisa Wang rk [facility] 10/29/2023 14:01:32 What Is Your Level Of Caffeine Consumption? Moderate [id number] Information not available 01/17/2023 In The 14 Days Before Symptom Onset, Have You Had Close Contact With A Laboratory-confirm ed COVID-19 While That Case Was Ill? No Information n ot available 10/29/2023 In The 14 Days Before Symptom Onset, Have You Had Close Contact With A Person Who Is Under Investigation For COVID-19 While That Person Was Ill? No Information not available 10/29/2023 What Type Of Diet Are You Following? REGULAR [id number] Information not available 01/17/2023 What Is Your Current Pack Years? 10packyears Information not available 10/29/2023 Have You Ever Been Counseled For Unhealthy Alcohol Use? No Information not available 10/29/2023 Has Tobacco Cessation Counseling Been Provided? No Information not available 10/29/2023 Do You Have Any Dietary Restrictions? No Information not available 10/29/2023 Sex: Unknown Functional Status Question Answer Note LastModified by [employer] Details LastModified Time Do you use any illicit or recreational drugs? No Information not available 10/29/2023 Do you or have you ever used any other forms of tobacco or nicotine? No Information not available 10/29/2023 What is your level of alcohol consumption? None once a year [email or web address] Information not available 09/03/2023 What is your exercise level? None [id number] Information not available 01/17/2023 Mental Status None recorded. Family History Relationship Description Onset Age of this Age Resolved Age Notes LastModified by Organization Details LastModified Time Father Arthritis Not availab le 10/29/2023 14:01:30 Father Hypertensive disorder [email or web address] Not available 2022 17:44:49 Mother Arthritis Not availab le 10/29/2023 14:01:30 Mother Hypertensive disorder [email or web address] Not available 2022 17:44:49 Medical History Condition Response BACK / NECK PROBLEMS Y ARTHRITIS Y PULMONARY DISEASE Y Gynecological History Statement/Question Response Abnormal Pap N Dislike of Light during Menstrual Headac he N Menses Monthly N Current Control Method Menopause Breast Problems no Discharge no Obstetrics History GPAL:G 0 P 0 0 0 0 Immunizations Vaccine Type Date Status Note Provider Nam e and Address Organization Details Recorded Time Respiratory syncytial virus (RSV) vaccine, unspecified 3 completed Esme Fung APRN [address], [address], [place], [address], [employer] 07/29/2024 11:15:38 influenza, unspecified formulation 3 completed Esme Fung APRN [address], [address], [place], [address], [employer] 07/29/2024 11:15:38 Influenza, high-dose, quadrivalent, PF 2 completed Esme Fung APRN [address], [address], [place], [address], [employer] [facility] 07/29/2024 11:15:38 Influenza, adjuvanted, quadrivalent, PF 0 completed Esme Fung APRN [address], [address], [place], [address], [employer] 07/29/2024 11:15:38 Influenza, adjuvanted, quadrivalent, PF 3 completed Esme Fung APRN [address], [address], [place], [address], [employer] 07/29/2024 11:15:54 COVID-19, mRNA, LNP-S, PF, 30 mcg/0.3 mL dose 1 completed Esme Fung APRN [address], [address], [place], [address], [facility] 07/29/2024 11:15:38 COVID-19, mRNA, LNP-S, PF, 30 mcg/0.3 mL dose 1 completed Esme Fung APRN [address], [address], [place], [address], [facility] 07/29/2024 11:15:38 COVID-19, mRNA, LNP-S, PF, 30 mcg/0.3 mL dose 1 completed Esme Fung APRN [address], [address], [place], [address], [facility] 07/29/2024 11:15:38 COVID-19, mRNA, LNP-S, PF, 30 mcg/0.3 mL dose, toan-sucrose 2 completed Esme Fung APRN [address], [address], [place], [address], [facility] 07/29/2024 11:15:38 COVID-19, mRNA, LNP-S, bivalent, PF, 30 mcg/0.3 mL dose 2 completed Esme Fung APRN [address], [address], [place], [address], [facility] 07/29/2024 11:15:38 RSV, recombinant, protein subunit RSVpreF, adjuvant reconstituted, 0.5 mL, PF 3 completed Esme Fung APRN [address], [address], [place], [address], [facility] 07/29/2024 11:15:38 COVID-19, mRNA, LNP-S, PF, 50 mcg/0.5 mL 3 completed Esme Fung APRN [address], [address], [place], [address], [facility] [employer] [facility] 07/29/2024 11:15:38 pneumococcal polysaccharide PPV23 3 completed Esme Fung APRN [address], [facility] [address], [place], [address], [facility] [employer] [facility] 07/29/2024 11:15:38 pneumococcal polysaccharide PPV23 7 completed Esme Fung APRN [address], [facility] [address], [place], [address], [facility] [employer] [facility] 07/29/2024 11:15:38 pneumococcal polysaccharide PPV23 7 completed Esme Fung APRN [address], [facility] [address], [place], [address], [facility] [employer] [facility] 07/29/2024 11:15:38 Tdap 7 completed Esme Fung APRN [address], [place] [address], [place], [address], [facility] [employer] [facility] 07/29/2024 11:15:38 Influenza, high-dose, trivalent, PF 9 completed Esme Fung APRN [address], [facility] [address], [place], [address], [facility] [employer] [facility] 07/29/2024 11:15:38 Pneumococcal conjugate PCV 13 5 completed Not Available [facility] 01/17/2023 10:47:29 pneumococcal polysaccharide PPV23 0 completed Not Available [facility] 01/17/2023 10:47:29 Influenza, high-dose, quadrivalent, PF 1 completed Not Available [facility] 01/17/2023 10:47:29 Past Encounters Encounter ID Performer Location Encounter Start Date Encounter Closed Date Diagnosis/Indication Diagnosis SNOMED-CT Code Diagnosis ICD10 Code Diagnosis Note [id number] Tristan Abraham MD [facility] Primary Care [address] [place] [address] 06/15/2021 00:00:00 06/15/2021 10:47:09 [id number] Tristan Abraham MD [facility] Primary Care [place] [address] [place] [address] 08/24/2021 00:00:00 08/24/2021 13:53:35 [id number] Tristan Abraham MD [facility] Primary Care [place] [address] [place] [address] 12/13/2021 00:00:00 12/13/2021 18:13:07 [id number] Tristan Abraham MD [facility] Primary Care [place] [address] [place] [address] 12/15/2021 00:00:00 12/15/2021 14:12:54 [id number] Tristan Abraham MD [facility] Primary Care [place] [address] [place] [address] 12/16/2021 00:00:00 12/16/2021 17:31:10 [id number] MIGUELITO Archer [facility] Primary Care [place] [address] [place] [address] 12/19/2021 00:00:00 12/19/2021 10:59:08 [id number] MIGUELITO Archer [facility] Primary Care [place] [address] [place] [address] 08/04/2022 00:00:00 08/04/2022 11:10:25 [id number] Drew Johns MD [facility] [place] [address] [place] [address] 08/14/2022 00:00:00 08/14/2022 18:14:53 [id number] Tristan Abraham MD [facility] Primary Care [place] [address] [place] [address] 08/14/2022 00:00:00 08/14/2022 20:58:25 [id number] MIGUELITO Archer [facility] Primary Care [place] [address] [place] [address] 09/13/2022 00:00:00 09/13/2022 12:29:27 [id number] Drew Johns MD [facility] [place] [address] [facility] [address] [place] [address] 09/18/2022 00:00:00 09/18/2022 17:24:08 [id number] MIGUELITO Archer [facility] Primary Care [place] [address] [employer] [facility] [address] [place] [address] 10/23/2022 00:00:00 10/23/2022 10:13:31 [id number] Lore Padilla, [facility] [place] [address] [place] [address] 11/08/2022 00:00:00 11/08/2022 11:23:14 [id number] Tristan Abraham MD [facility] Primary Care [place] [address] [employer] [facility] [address] [place] [address] 11/22/2022 00:00:00 11/22/2022 13:28:08 [id number] Tristan Abraham MD [facility] Primary Care [place] [address] [facility] [address] [place] [address] 12/06/2022 00:00:00 12/06/2022 20:11:00 [id number] ELSA Concepcion [facility] Primary [place] [address] [facility] [address] [place] [address] 01/18/2023 14:52:26 01/18/2023 15:49:04 Dyspnea 585688031 R06.00 R05.9 New complaintM ay be sx of copd exacerbati on, but respirator y exam essentiall y normal in office today; however, pt currently on topical HRT tx for atrophic vaginitis. Will send for xray to r/o PE in light of new sx. Chronic ob structive pulmonary disease 26221187 J44.9 Chronic, stableDisc ussed progressiv e nature of COPD at length. Encouraged proper breathing techniques . Advised compliance with supplement al O2, nebulizer and inhaled medication s as directed. Encouraged patient to avoid cigarette smoke, allergens, and environmen bob pollutants .Continue with albuterol nebs for routine use. Also given duo neb for use during exacerbati ons. Atrophic vaginitis 82879 000 N95.2 Improved with Premarin creamAdvis ed to decreased frequency of use since bp has been elevated as HRT has been known to increase BP and increase risk of dvt. Loss of hair 191110807 L 65.9 New problemNo visible bald areas. Advised hair loss is likely normal shedding. Will continue to monitor and consider derm referral if persistent /worsening . [id number] ELSA Concepcion [facility] Primary [facility] [address] [facility] [address] [place] [address] 02/02/2023 16:25:59 02/02/2023 17:24:31 Dyspnea 943103249 R06.00 R05.9 New complaintC XR (01/23/23) neg for PE, but consistent with known copd.Sx likely d/t copd exacerbati on, especially when coupled with PFT (01/29/23) findings of moderately severe obstructiv e abnormalit y with air-trappi ng. Chronic ob structive pulmonary disease 35778666 J44.9 Chronic, stableDisc ussed progressiv e nature of COPD at length. Encouraged proper breathing techniques . Advised compliance with supplement al O2, nebulizer and inhaled medication s as directed. Encouraged patient to avoid cigarette smoke, allergens, and environmen bob pollutants .Continue with albuterol nebs for routine use. Also given duo neb for use during exacerbati ons. Atrophic vaginitis 70641 000 N95.2 Improved with Premarin creamAdvis ed to decreased frequency of use since bp has been elevated as HRT has been known to increase BP and increase risk of dvt. Loss of hair 045597724 L 65.9 No changeNo visible bald areas. Advised hair loss is likely normal shedding. Will continue to monitor and consider derm referral if persistent /worsening . Atheroscle rosis of aorta 89833436 I70.0 New finding on cxr.Recomm end referral to cardiology for further evaluation /tx. Pt declines at this time. Renal impairment 8671616 03 N28.9 Unknown statusWill generate new referral per patient request. [id number] ELSA 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 9 With hypoxia and hospitaliz ation 2Rep eat CT scheduled for 03/12/23 Abnormal f indings on diagnostic imaging of lung 666842906 R91.8 CTA inpatient with area to left lung apex - 6mm, likely scarring but appearance is somewhat nodular per dictation History of SARS-CoV-2 29 37089962 08225134 Z86.16 Diagnosis 02/2022 Ex-smoker 5077999 Z87.89 1 Quit 2CT as above [id number] ELSA Concepcion [facility] Primary Care [facility] [address] [facility] [address] [place] [address] 03/02/2023 10:52:04 03/02/2023 12:08:53 Chronic obstructive pulmonary disease 57319388 J44.9 Chronic, stableDisc ussed progressiv e nature of COPD at length. Encouraged proper breathing techniques . Advised compliance with supplement al O2, nebulizer and inhaled medication s as directed. Encouraged patient to avoid cigarette smoke, allergens, and environmen bob pollutants . Reviewed pulmonary note from Jesus Padilla NP (02/09/23): severe chronic obstructiv e lung disease. PFT completed 01/2023 with ratio 45 and FEV1 49AJQ755, FRC 175, RV 186DLCO 72% correctedC hange inhaled medication to Trelegy Ellipta 100 - one puff dailyInstr ucted on techniqueS he is aware to rinse and spit after useAlso aware to DC WixelaCont inue albuterol PRNStart Trelegy Ellipta 100 mcg-62.5 mcg-25 mcg powder for inhalation 1 puff every day as directed for 30 days Atrophic vaginitis 14353 000 N95.2 Improved with Premarin creamAdvis ed to decreased frequency of use since bp has been elevated as HRT has been known to increase BP and increase risk of dvt. Renal impairment 6985061 03 N28.9 Unknown statusRefe rral generated last visit. Referral reprinted for pt to schedule.W ill check bmp pending renal appt. Atheroscle rosis of aorta 15344805 I70.0 New finding on cxr (01/23/23)Re commend referral to cardiology for further evaluation /tx. Pt declines at this time. Elevated blood-pressure reading without diagnosis of hypertension 788451675 R03.0 RecurrentP t reports bps are normal at home.Asymp tomatic at this timeWill monitor closely and consider meds if appropriat e in the future.Pt to bring home cuff to next office visit.Disc ussed s/s that warrant emergency evaluation in the meantime. [id number] Lore Padilla, [employer] [facility] [place] [address] [place] [address] 03/27/2023 09:52:37 03/27/2023 10:48:51 Severe chronic obstructive pulmonary disease 207619714 J44.9 PFT completed 01/2023 with ratio 45 and FEV1 44RVO985, FRC 175, RV 186DLCO 72% correctedC ontinue WixelaStar t Spiriva Respimat 2.5 two puffs dailySampl es to patientIns tructed on techniqueS he is aware to rinse and spit after useAlso aware to DC WixelaCont inue albuterol PRN Immunoglob ulin deficiency 536947756 D80.9 IGGs low:immuno globulin g subclass 3 = 7immunoglo bulin g subclass 1 = 366immunog lobulin g subclass 2 = 55immunogl obulin g, serum = 569She has seen immunology with repeat testing and labs Dyspnea on exertion 6084 5006 R06.09 Eosinophil s, Alpha 1 and IGE normalQues t did not draw further labs - reordered todayConti nue activityIn haled therapy as aboveSix minute walk testing 01/2023 was normalQuan tiferon GOLD negativeBN P normalRAST and IGE neormal Pneumonia 775264598 J18. 9 With hypoxia and hospitaliz ation 2Rep eat CT completed 02/15/23 with no acute infection but some chronic scarring History of SARS-CoV-2 29 58371730 31172197 Z86.16 Diagnosis 02/2022We have discussed the uncertain recovery of COVID19.En couraged exercise as toleratedD iscussed S/S that require emergent evaluation Ex-smoker 1499571 Z87.89 1 Quit 2CT as above [id number] Tristan Abraham MD [facility] Primary Care [facility] [address] [facility] [address] [place] [address] 04/30/2023 17:06:18 04/30/2023 17:29:39 Essential hypertension 37094291 I10 not at baselinein crease amlodipine 7.5 mg dailycheck labsok to walk in home daily [id number] Lore Padilla, [employer]OCIATE BUSINESS ANALYST-[employer] [facility] [place] [address] [place] [address] 05/08/2023 10:49:35 05/08/2023 11:42:56 Severe chronic obstructive pulmonary disease 788525523 J44.9 PFT completed 01/2023 with ratio 45 and FEV1 94NCX426, FRC 175, RV 186DLCO 72% correctedC ontinue Wixela 250/50Star t ipratropiu m via nebulizer BIDAfsaneh has this at homeInstru cted on techniqueS he is aware of reportable side effectsShe is aware to rinse and spit after use of wixelaCont inue albuterol PRNPlans for MS after stable on inhaled therapy Immunoglob ulin deficiency 258216700 D80.9 IGGs 11/2022 low:immuno globulin g subclass 3 = 7immunoglo bulin g subclass 1 = 366immunog lobulin g subclass 2 = 55immunogl obulin g, serum = 569She has seen immunology with repeat testing and labsContin ue to follow Dyspnea on exertion 6084 5006 R06.09 Eosinophil s, Alpha 1 and IGE normalCont inue activity, declines MS at this timeInhale d therapy as aboveSix minute walk testing 01/2023 was normalQuan tiferon GOLD negativeBN P normalRAST normalCons ider echocardio gram after stable on inhaled therapy Pneumonia [id number] J18. 9 With hypoxia and hospitaliz ation 2Rep eat CT completed 02/15/23 with no acute infection but some chronic scarring History of SARS-CoV-2 29 [id number] 57986766 Z86.16 Diagnosis 02/2022We have discussed the uncertain recovery of COVID19.En couraged exercise as toleratedD iscussed S/S that require emergent evaluation Ex-smoker 4179106 Z87.89 1 Quit 2[address] as aboveRepea t CT chest due 01/2024 [id number] Tristan Abraham MD [facility] Primary Care [facility] [address] [facility] [facility] [address] [place] [address] 05/14/2023 17:00:15 05/14/2023 17:54:43 Tremor 81742093 R25.1 Has been noting bilateral hand tremors for the last couple weeks. Stopped taking sodium tablets months ago. Sodium now 136. Encouraged to trial sodium supplement again. F/u 2 months Essential hypertension 98691328 I10 doing well [id number] Lore Padilla [facility] Pulmonolo gy [place] [address] [place] [address] 06/27/2023 12:18:19 06/27/2023 14:49:04 Severe chronic obstructive pulmonary disease 391140151 J44.9 PFT completed 01/2023 with ratio 45 and FEV1 26LAR514, FRC 175, RV 186DLCO 72% correctedC ontinue Wixela 250/50Incr ease ipratropiu m via nebulizer to [facility] he is aware of reportable side effectsShe is aware to rinse and spit after use of wixelaCont inue albuterol PRNPlans for MS, she will consider Immunoglob ulin deficiency 169194652 D80.9 IGGs 11/2022 low:immuno globulin g subclass 3 = 7immunoglo bulin g subclass 1 = 366immunog lobulin g subclass 2 = 55immunogl obulin g, serum = 569Shbev has seen immunology with repeat testing and labsContin ue to follow Dyspnea on exertion 6084 5006 R06.09 Eosinophil s, Alpha 1 and IGE normalCont inue activity, declines MS at this timeInhale d therapy as aboveSix minute walk testing 01/2023 was normalQuan tiferon GOLD negativeBN P normalRAST normal History of SARS-CoV-2 29 91288641 71712405 Z86.16 Diagnosis 02/2022We have discussed the uncertain recovery of COVID19.En couraged exercise as toleratedD iscussed S/S that require emergent evaluation Ex-smoker 3701303 Z87.89 1 Quit T as aboveRepea t CT chest due 01/2024 [id number] Geronimo Bradley DPM [facility] Podiatry [place] [address] [place] [address] 09/03/2023 16:04:44 09/04/2023 13:56:06 Closed fracture of fifth metatarsal bone of right foot [id number] 8281319 S92.354A right 5th metatarsal x-rays reviewed with the patientrec ommend Cam boot and even up for the opposite leg to prevent lower back issuesmini mal weight-douglas ring to and from the bathroomri ce therapyfol low-[facility] weeks for repeat x-rays [id number] Geronimo Bradley DPM [facility] Podiatry [place] [address] [place] [address] 10/01/2023 11:14:02 10/01/2023 11:45:27 Closed fracture of fifth metatarsal bone of right foot 1457240828 7113229 S92.354A right 5th metatarsal x-rays reviewed with the patient- healing mild displaceme ntrecommen d Cam boot when longer walking is required, patient may return to normal shoe gear in the house with traveling to the bathroom onlycontin ue use of cane to offload lower extremityp atient states the cam boot and even up are causing too much issues with her backrice therapyfol low-up in [facility] 4 weeks for repeat x-rays [id number] Lore Padilla, ASSOCIATE BUSINESS ANALYST-BC [facility] Pulmonolo gy [place] [address] [place] [address] 10/03/2023 11:15:36 10/03/2023 12:21:40 Acute exacerbation of chronic obstructive pulmonary disease 640771773 J44.1 No abx while hospitaliz ed or on DCCXR negative for infiltrate Start levaquin.D iscussed emergently reportable signs and symptoms Severe chr onic obstructive pulmonary disease 867053266 J44.9 PFT completed 01/2023 with ratio 45 and FEV1 19PMT910, FRC 175, RV 186DLCO 72% correctedC ontinue Wixela 250/50Ipra tropium via nebulizer QIDDC Spiriva (DC RX) previous reaction.C ombivent is the same as jomar, discussed with Ms Talley has this at [facility] cted on techniqueS he is aware to rinse and spit after use of wixelaCont inue albuterol PRNAdvised vaccines this fallShe should follow up with pulmonolog y in 2-3 months Immunoglob ulin deficiency 032968624 D80.9 IGGs 11/2022 low:immuno globulin g subclass 3 = 7immunoglo bulin g subclass 1 = 366immunog lobulin g subclass 2 = 55immunogl obulin g, serum = 569She has seen immunology with repeat testing and labsContin ue to follow with them, need records Dyspnea on exertion 6084 5006 R06.09 Eosinophil s, Alpha 1 and IGE normalCont inue activity, declines MS at this timeInhale d therapy as aboveSix minute walk testing 01/2023 was normalQuan tiferon GOLD negativeBN P normalRAST normal History of SARS-CoV-2 29 13696923 46370640 Z86.16 Diagnosis 02/2022We have discussed the uncertain recovery of COVID19.En couraged exercise as toleratedD iscussed S/S that require emergent evaluation Ex-smoker 4420098 Z87.89 1 Quit T 01/2023 with no nodule, mass, or enlarged lymph nodesRepea t CT chest due 01/2024 - she is aware [id number] Tristan Abraham MD [facility] Primary Care [facility] [address] [place] [address] 10/09/2023 11:18:07 10/09/2023 12:03:21 Transition of care 9667875449 105 Z75.8 Hyponatremia 59439128 E8 7.1 increase sodium chloride to 1000 mg bidrepeat bmp Left side sciatica 42409 68798 97458 M54.32 will resume chiropract ic [facility] pt/ot orderedcon tinue gabapentin 300 mg, pt aware of potential s/e including confusion, constipati oncycloben zaprine 5 mg 1/2 to 1 tab po tid prn, can cause confusion/ balance issuesf/u in 6 weeks, will refer to specialist if no improvemen t Chronic ob structive pulmonary disease 78025495 J44.9 Heartburn 63119022 R12 continue to sleep propped upfamotidi ne otc 20 mg qhs prn [id number] Geronimo Bradley DPM [facility] Podiatry [place] [address] [place] [address] 10/29/2023 14:00:25 10/29/2023 16:27:36 Closed fracture of fifth metatarsal bone of right foot 7089429621 1303197 S92.354A right 5th metatarsal x-rays reviewed with the patient- stable not completely healedreco mmend Cam boot when longer walking is requiredco ntinue use of cane to offload lower extremity follow-up in [facility] 4 weeks for repeat x-rays [id number] Tristan Abraham MD [facility] [address] [place] [address] 12/03/2023 09:04:20 12/03/2023 09:29:02 Hyponatremia 24618051 E87.1 feeling well on increased dose of sodium chloride 1000 mg bidrepeat bmp Left side sciatica 67835 36099 15059 M54.32 will resume chiropract ic [facility] pt/ot orderedcon tinue gabapentin 300 mg, pt aware of potential s/e including confusion, constipati oncycloben zaprine 5 mg 1/2 to 1 tab po tid prn, can cause confusion/ balance issuesf/u in 6 weeks, will refer to specialist if no improvemen t update 12/03/23: Feeling better gradually, did not get home healthMRI showed severe degenerati ve disk disease 10/11, pt wants to observe for now Chronic ob structive pulmonary disease 42363131 J44.9 refill given [id number] Tristan Abraham MD [facility] Primary Care [facility] [address] [facility] [place] [address] 03/03/2024 09:01:57 03/03/2024 09:30:45 Weight loss 42673988 R63.4 due to recent bout of colitisshe feels well at this weightappe tite is good Chronic ob structive pulmonary disease 07690920 J44.9 refill given Hyponatremia 22331207 E8 7.1 feeling well on sodium chloride 1000 mg dailycheck bmp, no change if sodium is stable Renewal of prescription 707513586 Z76.0 Neuropathy 041990575 G62 .9 stable Essential hypertension 17178587 I10 doing well Health Concerns Section Related Observation LastModified by Organization Detai ls LastModified Time None Recorded Concern Status LastModified by Organization Details LastModified Time None Recorded Advance Directives Directive None Recorded Payers Insurance Date Sequence Insurance Name Policy Number Policy Campa Covered Member ID Campa Member ID Guarantor Name 02/29/2024 1 [employer] (MEDICARE REPLACEMENT/A DVANTAGE - PPO) Angella Espinoza [id number] Angella Espinoza 10/26/2023 [employer] (MEDICARE REPLACEMENT/A DVANTAGE - PPO) [id number] Angella Espinoza [id number] Angella Espinoza Notes Date Note Type Note Provider Name and Address Organization Details Recorded Time 10/03/2023 text/html Ms Espinoza david ts today to follow up on hospitalization for COPD exacerbation.Reports 2-3 days of shortness of breath and sciatic/foot pain led her to the ER.She was admitted and given breathing treatments and steroidsDischarged on Prednisone taper.She is feeling better but continues to have dyspnea, although this is improved.No increase in cough or mucous productionAlso with concerns about sodium and potassium levels and medication changes on discharge.Has appointment with PCM next week Lore Padilla, ASSOCIATE BUSINESS ANALYST-BC [address], [place], [address], [employer] 10/03/2023 13:46:33 10/09/2023 text/html would like to in crease sodium dosage, she feels better with higher sodium level has pain in lower back radiating to left buttock, described as 6-7/10 achy pain, can be stabbing pain with dry cough at night, some heartburn, sleeps propped up Tristan Abraham MD [address], [place], [address], [employer] 10/17/2023 18:01:21 10/29/2023 text/html . Patient is 78-year-old female who returns the office for follow-up on closed fracture of the 5th metatarsal right foot. Patient states she still having some minor discomfort with weight-bearing. Patient states that she has discontinued wearing the boot due to lower back pain. Patient did also try a even up to prevent her lower back pain. Patient states that she would rather have the pain in her foot than in her back. Patient understands that weight-bearing without protective shoe gear could potentially worsen the fracture and may require surgical intervention. Patient denies any other complaints. Geronimo Bradley DPM [address], [place], [address], [employer] 10/29/2023 14:57:02 12/03/2023 text/html would like to in crease sodium dosage, she feels better with higher sodium level has pain in lower back radiating to left buttock, described as 6-7/10 achy pain, can be stabbing pain with dry cough at night, some heartburn, sleeps propped up update 1/15/24: Feeling better on higher dose of sodium chloride. she is having some gradual improvement in low back pain. Home health did not contact her. Tristan Abraham MD [address], [place], [address], [facility] [employer] 12/03/2023 09:28:35 03/03/2024 text/html would like to in crease sodium dosage, she feels better with higher sodium level has pain in lower back radiating to left buttock, described as 6-7/10 achy pain, can be stabbing pain with dry cough at night, some heartburn, sleeps propped up update 12/03/23: Feeling better on higher dose of sodium chloride. she is having some gradual improvement in low back pain. Home health did not contact her. update 03/03/24: had a bout colitis recently, now feels her weight is in a good spot for her. She is eating ok. Taking sodium 1000 mg daily. She is feeling well at this time. Tristan Abraham MD [address], [place], [address], [employer] [facility] [employer] 03/03/2024 09:30:44 OBGyn Episode No OBEpisode recorded.
--- OUTSIDE RECORDS SUMMARY | 2025-05-25 14:43 | XMS_ITS | Encounter Summary ---
Author Organization [facility] Healthcare Address [address] [place] [address] Care Team Providers Care Clerk Guide Name Role Phone Talya Andino NP Primary Care Provider [phone] Encounter Details Date Type Department Care Team (Late st Contact Info) Description 05/25/2025 3:15 PM CDT Office Visit [facility] at [address] [phone] Prudence Gautam PA [address] [place] [address] [address] [place] [address] COPD with exacerbation (HCC) (Primary Dx) Social History Tobacco Use Types Packs/Day Years Used Date Smoking Tobacco: Former Cigarettes 0 54 1 - 2021 Smokeless Tobacco: Former AUDIT-C Answer Date [...] points, staff should administer the PHQ-9) 0 03/31/2025 Comments No Sex and Gender Information Value Date Recorded Sex Assigned at Not on file Legal Sex Female 7:51 PM BRO[employer] Gender Identity Not on file Sexual Orientation Not on file documented as of this encounter Last Filed Vital Signs Vital Sign Reading Time Taken Comments Blood Pressure 142/97 05/25/2025 2:04 PM CDT Pulse 112 05/25/2025 2:04 PM CDT Temperature - - Respiratory Rate 40 05/25/2025 2:04 PM CDT Oxygen Saturation 97% 05/25/2025 2:04 PM CDT Inhaled Oxygen Concentration - - Weight - - Height - - Body Mass Index - - documented in this encounter Progress Notes * Prudence Gautam PA - 05/25/2025 3:15 PM CDT Images from the original note were not included. Subjective/Objective Patient ID: Angella Espinoza is a 80 y.o. female. Chief Complaint No chief complaint on file. Pt presents w/ increasing sob x 2 days. Hx of copd, on trellegy and albuterol prn. Seen 2 days ago dx w/ copd exacerbation started on prednisone and z pack. Presents w/ worsening sob. No chest pain. EMS was called from the [facility] due to respiratory distress. Review of Systems All systems reviewed and are negative or non contributory for this patient's presentation today other than as stated in the HPI . Physical Exam Constitutional: General: She is not in acute distress. HENT: Head: Normocephalic and atraumatic. Mouth/Throat: Pharynx: Oropharynx is clear. Eyes: Pupils: Pupils are equal, round, and reactive to light. Cardiovascular: Rate and Rhythm: Tachycardia present. Pulmonary: Effort: Respiratory distress (mild) present. Breath sounds: Wheezing present. Musculoskeletal: General: Normal range of motion. Cervical back: Normal range of motion. Skin: General: Skin is warm and dry. Neurological: General: No focal deficit present. Mental Status: She is alert and oriented to person, place, and time. Psychiatric: Mood and Affect: Mood normal. Behavior: Behavior normal. Vitals: 05/25/25 1404 BP: 142/97 Pulse: 112 Resp: (!) 40 SpO2: 97% Assessment/Plan -pt presents w/ worsening sob w/ hx of copd, seen 2 days ago started on z pack and prednisone w/ noimprovement -pt presented as walk in and EMS was called from the [facility] staff due to labored breathing -upon bringing her back, oxygen was 94% and HR in the 120s but she remained tachypneic with laboredbreathing and unable to speak in complete sentences -pt transported via EMS to ER for copd exacerbation management Diagnoses and all orders for this visit: COPD with exacerbation (HCC) (Primary) No results found for this or any previous visit (from the past 4 hours). Disposition ER via EMS MIGUELITO Stewart 05/25/25 2:16 PM Cosigned by Sha Dietz MD at 05/25/2025 2:34 PM CDT documented in this encounter Plan of Treatment Not on file documented as of this encounter Visit Diagnoses Diagnosis COPD with exacerbation (HCC)- Primary documented in this encounter Care Teams Clerk Guide Relationship Specialty Start Date End Date Talya Andino NP [address] [place] [id number] PCP - General Internal Medicine 03/27/24 documented as of this encounter
--- OUTSIDE RECORDS SUMMARY | 2025-05-25 14:43 | XMS_ITS | Clinical Summary ---
Author Organization [address] Address [address] [place] [address] MICHELLE Evans [address] Care Team Providers Care High School Admissions Representative Name Role Phone Talya Andino NP Primary Care Provider [phone] Allergies Active Allergy Reactions Criticality Noted Date Comments Hydrocodone Nausea & Vomiting Low 04/28/2011 Penicillins Hives Medium 04/20/2011 Had rash in childhood. 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 Active Lactobac no.41/Bifidobact no.7 (PROBIOTIC-10 ORAL) Take 1 tablet by mouth every morning Active amLODIPine (NORVASC) 5 mg tablet Take 1 tablet (5 mg total) by mouth daily 4 Active sodium chloride 1 gram tabletIndication s:Hyponatremia Take 1 tablet (1 g total) by mouth 4 (four) times a day 360 tablet 1 4 Active montelukast (SINGULAIR) 10 mg tabletIndication s:Chronic rhinitis Take 1 tablet (10 mg total) by mouth nightly 90 tablet 1 5 026 Active fluticasone-umec lidin-vilanter (Trelegy Ellipta) 200-62.5-25 mcg inhalerIndicatio ns:Chronic obstructive pulmonary disease, unspecified COPD type (HCC),Severe persistent asthma without complication (HCC) Inhale 1 puff daily 60 each 3 5 Active gabapentin (NEURONTIN) 300 mg capsule TAKE 1 CAPSULE(300 MG) BY MOUTH THREE TIMES DAILY 90 capsule 1 5 Active ipratropium-albu teroL (DUO-NEB) 0.5-2.5 mg/3 mL nebulizer solutionIndicati ons:Chronic obstructive pulmonary disease, unspecified COPD type (HCC),Severe persistent asthma without complication (HCC) Take 3 mL by nebulization every 4 (four) hours as needed for wheezing or shortness of breath (coughing) 180 mL 3 5 Active ipratropium (ATROVENT) 42 mcg (0.06 %) nasal sprayIndications :Severe persistent asthma with acute exacerbation (HCC),Chronic rhinitis USE 2 SPRAYS IN EACH NOSTRIL THREE TIMES DAILY NEEDED FOR NASAL CONGESTION OR DRAINAGE 15 mL 1 5 Active azithromycin (ZITHROMAX) 250 mg tablet Take 2 tablets the first day, then 1 tablet daily for 4 days. 6 tablet 5 Active predniSONE (DELTASONE) 20 mg tablet Take 2 tablets (40 mg) by mouth daily for 3 days 6 tablet 5 025 Active Active Problems Problem Noted Date Diagnosed Date Ankle edema 01/01/2025 BMI 23.0-23.9, adult 03/27/2024 Hypertension, essential 03/27/2024 Physical exam, annual 03/27/2024 Overview (03/27/2024): [employer] physical and PAF completed today. 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 Will change colace to prn Closed fracture of left wrist 09/01/2022 Assessment & Plan (09/05/2022 11:33 AM CDT): In cast, MASOUD SCRUGGS. Follow with orthopedic surgery as scheduled in [facility] Assessment & Plan (09/02/2022 11:08 AM CDT): Currently in cast, nonweightbearing. Await follow-up from orthopedic surgeon. Pain is controlled. Assessment & Plan (09/01/2022 3:33 AM CDT): Patient sustained a fall, followed by left wrist pain. X-ray revealed fracture, seen by Orthopedic placed fiberglass cast. Had repeat Xray: irregularity of the distal radius which could indicate site of fracture. Daughter will take x-ray result to the orthopedic, follow-up treatment plan. Currently has minimal pain. MASOUD SCRUGGS. 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 Salas) on 08/11. Continue ofloxacin ophthalmic solution in right ear 5 times daily. 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 Salas) on 08/11. Continue ofloxacin ophthalmic solution in right ear 5 times daily. Follow-up ENT outpatient Transaminitis 09/01/2022 Assessment & Plan (09/01/2022 3:37 AM CDT): Hepatic function improving. Continue to monitor Pneumonia of both lungs due to infectious organi sm 08/31/2022 Assessment & Plan (08/31/2022 8:53 AM CDT): Patient presented with worsening cough associated with shortness of Breath. Imaging revealed bilateral pneumonia. Treated with ceftriaxone, azithromycin, Solu- Medrol, nebs. Transition to oral Omnicef x3 days. Continue albuterol Q 4 p.r.n., Wixela, DuoNeb q.6 p.r.n.. Patient to follow-up with Pulmonary, Dr. Nguyen outpatient after discharge in 2-3 weeks COPD (chronic obstructive pulmonary disease) 05/2022 Assessment & Plan (09/25/2024 10:32 AM DISTRESSER): This is a significant, separately identifiable problem that was evaluated and managed on the same day as the wellness exam Assessment & Plan (09/05/2022 11:35 AM CDT): Significantly improved, complete prednisone taper, continue inhaled regimen. Follow-up with pulmonology as an outpatient. Recommended continued smoking cessation Assessment & Plan (09/04/2022 11:16 AM CDT): Improving, no bronchospasm. Continue inhaled regimen Assessment & Plan (09/02/2022 11:14 AM CDT): Overall pulmonary status is slowly improving. Currently without bronchospasm. Continue prednisone taper, inhaled regimen. Will schedule nebs in a.m. Assessment & Plan (08/31/2022 8:55 AM CDT): Patient presented with shortness of breath due to pneumonia. Treated with antibiotic, Solu-Medrol. Discharged on tapering prednisone, Omnicef. Continue bronchodilator p.r.n., Wixela. Patient follow-up Pulmonary, Dr. Nguyen outpatient after discharge for complete PFTs. Hyponatremia 08/15/2022 Assessment & Plan (09/05/2022 10:59 AM CDT): Sodium slowly improving, currently 132. Continue supplemental sodium chloride 1 g t.i.d., recommend follow-up BMP in 1 week with results to PCP Assessment & Plan (09/04/2022 11:12 AM CDT): Sodium stable - Pt insists she was getting 3gm daily of NaCl - dose increased this weekend. Recheck Na/;labs in am. Assessment & Plan (09/02/2022 11:01 AM CDT): Secondary to SIADH, sodium continues to improve, continue sodium tablets supplementation and fluid restriction Assessment & Plan (08/31/2022 9:00 AM CDT): 2/2 SIADH. Was recently admitted at [facility]. Nephrology consulted, treated with Na tabs and water restriction (1.5 L). Na 135 on 08/30. Left wrist pain 08/14/2022 Assessment & Plan (08/31/2022 8:56 AM CDT): Had fall on 08/13/22. Xray showed: irregularity of the distal radius which could indicate site of fracture. Dehydration Encounters Date Type Department Care Team Description 05/25/2025 3:15 PM CDT Office Visit [facility] at [address] [id number] Prudence Gautam PA COPD with exacerbation (HCC) (Primary Dx) 05/25/2025 Telephone [facility] at [address] [address] Lavonne Whyte, WELDING LEAD BURNER 05/23/2025 3:30 PM CDT Office Visit [facility] Care at [address] [address] Lavonne Whyte, WELDING LEAD BURNER Lower respiratory infection (e.g., bronchitis, pneumonia, pneumonitis, pulmonitis) (Primary Dx); COPD exacerbation (HCC) 03/31/2025 10:00 AM CDT Office Visit [facility] Internal Medicine at [place] [address] [place] [address] [address] [place] [address] Talya Andino NP Physical exam, annual (Primary Dx); BMI 23.0-23.9, adult; Chronic obstructive pulmonary disease, unspecified COPD type (HCC); Severe persistent asthma without complication (HCC) from Last 3 Months Immunizations Immunization Administration Dates Next Due Influenza, Quad, Adjuvantate d, Intramuscular 08/17/2020 Influenza, Quadrivalent, Hig h Dose, Preservative Free, Intrr 09/12/2024,08/24/2021 Influenza, Trivalent, High D ose, Split, Preservative Free, Intramuscular 11/05/2019 Influenza, Unspecified 03/31/2025(Deferr ed: Patient Refused - not season),10/30/2023,09/02/2023 TruHearing Sars-Cov-2 Bivalent V accination (12+ YRS) 09/15/2024,07/28/2022 Pneumococcal Conjugate PCV 13 02/03/2015 Pneumococcal Polysaccharide PPV23 2022,10/30/2017,09/19/2017,02/02 RSV, Bivalent, Protein Subun it Rsvpref, Diluent (Abrysvo) 10/30/2023 Tdap 10/19/2017 Surgical History Surgery Date Site/Laterality Comments TONSILLECTOMY 11/19/1957 - 11/18/1958 CHOLECYSTECTOMY 11/19/2011 - 11/18/2012 HYSTERECTOMY 11/19/1996 - 11/18/1997 TUBAL LIGATION 1979' STAPEDECTOMY CATARACT EXTRACTION Medical History Medical History Date Comments TMJ dysfunction COPD (chronic obstructive pulmonary disease) (HC C) Arthritis Covid-19 2021 HOME T EST ONLY Nausea 02/11/2024 Family History Medical History Relation Name Comments Cancer Father Winnie Aj Arthritis Mother E L Hearing loss Mother E L Heart disease Mother E L Anesthesia problems Neg Hx Relation Name Status Comments Father Winnie Aj Mother E L Social History Tobacco Use Types Packs/Day Years Used Date Smoking Tobacco: Former Cigarettes 0 54 1 968 - 2021 Smokeless Tobacco: Former Tobacco Cessation:Counseling Given: Not Answered AUDIT-C Answer Date Recorded Q1: How often [...] on file Legal Sex Female 7:51 PM DISTRESSER Gender Identity Not on file Sexual Orientation Not on file Obstetrics History Last Filed Vital Signs Vital Sign Reading Time Taken Comments Blood Pressure 142/97 05/25/2025 2:04 PM CDT Pulse 112 05/25/2025 2:04 PM CDT Temperature 36.9 C (98.5 F) 05/23/2025 3:24 PM CDT Respiratory Rate 40 05/25/2025 2:04 PM CDT Oxygen Saturation 97% 05/25/2025 2:04 PM CDT Inhaled Oxygen Concentration - - Weight 59 kg (130 lb) 05/23/2025 3:24 PM CDT Height 157.5 cm (5' 2) 03/31/2025 10:05 AM CDT Body Mass Index 23.78 03/31/2025 10:05 AM CDT Plan of Treatment Upcoming Encounters Date Type Department Care Team (Late st Contact Info) Description 05/25/2025 3:15 PM CDT Office Visit [facility] Medical Group [facility] Care at [address] [address] Prudence Gautam PA [address] [place] [address] [address] [place] [address] COPD with exacerbation (HCC) (Primary Dx) Health Maintenance Due Date Last Done Comments Hepatitis C Screening 1945 Osteoporosis Screening-Bone Density Scan 1945 Hepatitis B Screening 1963 Zoster Vaccine (1 of 2) 1964 Covid-19 Vaccine (2023-2 5 season) 2024 09/15/2024, 07/28/2022, 03/06/2022, Additional history exists Influenza Vaccine (#1) 2025 , 10/30/2023, 09/02/2023, Additional history exists Fall Risk Assessment 01/01/2026 01/01/2025, 09/25/2024, 09/16/2024, Additional history exists Depression Screening 03/31/2026 03/31/2025, 01/01/2025, 09/25/2024, Additional history exists Well Visit 65+ 03/31/2026 03/31/2025, 05/2024, 03/27/2024 DTaP/Tdap/Td Vaccine (2 - Td or Tdap) 10/19/2027 10/19/2017 Pneumococcal vaccine 65+ Completed 023, 10/30/2017, 09/19/2017, Additional history exists Medical Devices Implanted Type Area Soft Work Wrapper Examiner Device Identifier Shelf Expiration Date Model / Serial / Lot Sveta Robertson Otology 5mm .5mm Eclipse 360d Incus Wide Flat Ribbon [id number] - [id number] Implanted:Qty: 1 on 08/11/2022 by Navjot Salas MD at [facility] Right: Ear Sveta Ramirez [id number] 08/19/2026 [id number] / / [id number] Procedures Procedure Name Priority Date/Time Associated Diagnosis Comments POC INFLUENZA A/B, COVID-19 ANTIGEN Routine 05/23/2025 3:43 PM CDT Lower respiratory infection (e.g., bronchitis, pneumonia, pneumonitis, pulmonitis) from Last 3 Months Results * POC Influenza A/B, COVID-19 antigen (05/23/2025 3:43 PM CDT) Influenza A Ag, POC Negative Negative [facility] Influenza B Ag, POC Negative Negative [facility] COVID-19 Ag POC Presumptive Negative Presumptive Negative, Invalid [facility] Nasal 05/23/2025 3:43 PM CDT Lavonne Whyte NP POINT OF CARE TEST ORDERABLES Final Result Performing Organization Address City/State/[facility] Co de Phone Number [facility] [address] [place] [address], [facility] from Last 3 Months Insurance [employer] MEDICARE PPO [employer] MEDICARE PPO [employer] CHOICE MEDICARE PPO Advance Directives For more information, please contact: [phone] Documents on File Type Date Recorded Patient Dope Mixer Expl anation Advance Directives and Livin g Will 08/11/2022 6:27 AM * LIMITED - No CPR (Latest Code Status on File) Date Activated Date Inactivated Comments 08/17/2022 10:16 AM 08/19/2022 8:45 PM Care Teams High School Admissions Representative Relationship Specialty Start Date End Date Talya Andino NP [address] [facility] [address] [place] [address] PCP - General Internal Medicine 03/27/24
--- OUTSIDE RECORDS SUMMARY | 2025-05-25 14:43 | XMS_ITS | Referral Summary ---
Author Organization [address] Address [address] [place] [address] [place] [address] Care Team Providers Care Manager Insurance Name Role Phone Talya Andino NP Primary Care Provider [phone] Encounters Date Type Department Care Team Description 05/25/2025 3:15 PM CDT Office Visit [facility] Care at [address] [address] Prudence Gautam PA COPD with exacerbation (HCC) (Primary Dx) 05/25/2025 Telephone [facility] Medical [facility]ient Care at [address] [address] Lavonne Whyte NP 05/23/2025 3:30 PM CDT Office Visit [facility] at [address] [address] Lavonne Whyte NP Lower respiratory infection (e.g., bronchitis, pneumonia, pneumonitis, pulmonitis) (Primary Dx); COPD exacerbation (HCC) 03/31/2025 10:00 AM CDT Office Visit [facility] Medical [facility] Internal Medicine at [address] [place] [address] Talya Andino NP Physical exam, annual (Primary Dx); BMI 23.0-23.9, adult; Chronic obstructive pulmonary disease, unspecified COPD type (HCC); Severe persistent asthma without complication (HCC) from Last 3 Months Allergies Active Allergy Reactions Criticality Noted Date [...] HCL ORAL Take 2 tablets by mouth analysis consultant before breakfast Active Lactobac no.41/Bifidobact no.7 (PROBIOTIC-10 [...] 05/2022 Assessment & Plan (09/25/2024 10:32 AM NETBACKUP ENGINEER): This is a significant, separately identifiable problem [...] CDT): 2/2 SIADH. Was recently admitted at [facility]. Nephrology consulted, treated with Na tabs and water restriction (1.5 L). Na 135 on 08/30. Left wrist pain 08/14/2022 Assessment & Plan (08/31/2022 8:56 AM CDT): Had fall on 08/13/22. Xray showed: irregularity of the distal radius which could indicate site of fracture. Dehydration Immunizations Immunization Administration Dates Next Due Influenza, Quad, Adjuvantate d, Intramuscular 08/17/2020 Influenza, Quadrivalent, Hig h Dose, Preservative Free, Intrr 09/12/2024,08/24/2021 Influenza, Trivalent, High D ose, Split, Preservative Free, Intramuscular 11/05/2019 Influenza, Unspecified 03/31/2025(Deferr ed: Patient Refused - not season),10/30/2023,09/02/2023 Pfizer Sars-Cov-2 Bivalent V accination (12+ YRS) 09/15/2024,07/28/2022 Pneumococcal Conjugate PCV 13 02/03/2015 Pneumococcal Polysaccharide PPV23 2022,10/30/2017,09/19/2017,02/02 RSV, Bivalent, Protein Subun it Rsvpref, Diluent (Abrysvo) 10/30/2023 Tdap 10/19/2017 Social History Tobacco Use Types Packs/Day Years [...] on file 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 Gender Identity Not on file Sexual Orientation Not on file Last Filed Vital Signs Vital Sign Reading [...] Description 05/25/2025 3:15 PM CDT Office Visit [facility] at [address] [address] Prudence Gautam PA [address] [place] [address] [address] [place] [address] COPD with exacerbation (HCC) (Primary Dx) Medical Devices Implanted Type Area Remnants Cutter Device Identifier Shelf Expiration Date Model / Serial / Lot Sveta Medical Piston Otology 5mm .5mm Eclipse 360d Incus Wide Flat Ribbon [id number] - [id number] Implanted:Qty: 1 on 08/11/2022 by Navjot Salas MD at [facility] [place] Right: Dustin Ramirez [id number] 08/19/2026 [id number] / / [id number] Procedures Procedure Name Priority Date/Time Associated Diagnosis Comments POC INFLUENZA A/B, COVID-19 ANTIGEN Routine 05/23/2025 3:43 PM CDT Lower respiratory infection (e.g., bronchitis, pneumonia, pneumonitis, pulmonitis) from Last 3 Months Results * POC Influenza A/B, COVID-19 antigen (05/23/2025 3:43 PM CDT) Influenza A Ag, POC Negative Negative [facility] Influenza B Ag, POC Negative Negative [facility] COVID-19 Ag POC Presumptive Negative Presumptive Negative, Invalid [facility] Nasal 05/23/2025 3:43 PM CDT Lavonne Whyte NP POINT OF CARE TEST ORDERABLES Final Result Performing Organization Address City/State/[facility] Co de Phone Number [facility] CC EDW [address] [place] [address], [facility] from Last 3 Months Insurance [employer] MEDICARE PPO [employer] MEDICARE PPO [employer] CHOICE MEDICARE PPO Advance Directives For more information, please contact: [phone] Documents on File Type Date Recorded Patient Yard Caller Expl anation Advance Directives and Livin g Will 08/11/2022 6:27 AM * LIMITED - No CPR (Latest Code Status on File) Date Activated Date Inactivated Comments 08/17/2022 10:16 AM 08/19/2022 8:45 PM Care Teams Manager Insurance Relationship Specialty Start Date End Date Talya Andino NP [address] [place] [address] PCP - General Internal Medicine 03/27/24
--- OUTSIDE RECORDS SUMMARY | 2025-05-25 14:43 | XMS_ITS | Encounter Summary ---
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 She would like just a regular script sent in. Would like a call back to discuss. documented in this encounter Plan of Treatment Upcoming Encounters Date Type Department Care Team (Late st Contact Info) Description 05/25/2025 3:15 PM CDT Office Visit [facility] at [place] [id number] [place] [phone] Prudence Gautam PA [address] [facility] [address] [place], [place] [id number] COPD with exacerbation (HCC) (Primary Dx) documented as of this encounter Visit Diagnoses Not on filedocumented in this encounter Care Teams Principal Architectural Firm Relationship Specialty Start Date End Date Talya Andino NP [address] [place] [address] PCP - General Internal Medicine 03/27/24 documented as of this encounter
--- NOTE | 2025-05-25 15:53 | ED_ITS ---
HPI - SOB/Dyspnea General Chief Complaint: Shortness of Breath/Dyspnea <Lore Nguyen PA-C - Last Filed: 05/26/25 11:15> Stated Complaint: asthma exacerbation <KATIUSKA Burton Last Filed: 05/26/25 11:15> Time Seen by Provider: 05/25/25 15:53 <KATIUSKA Burton Last Filed: 05/26/25 11:15> Focused HPI: This is a 80 year old female that presents to the ER for shortness of breath. Reports she was seen at the urgent care a couple days ago, started on steroid and a z pack. Reports low grade fevers. Reports cough, congestion. GENERAL: Elderly, well-nourished, and in no acute distress. HEAD: Normocephalic, atraumatic. CHEST: Clear to auscultation. ?No respiratory distress. HEART: Regular rate and rhythm.? NEURO: ?Alert and oriented x3. Patient screened in triage and initial orders placed.? ?Additional care and disposition to be based upon?diagnostic testing and treatment. <KATIUSKA Burton Last Filed: 05/26/25 11:15> Focused HPI: This is a 80 year old female that presents to the ER for shortness of breath. Reports she was seen at the urgent care a couple days ago, started on steroid and a z pack. Reports low grade fevers. Reports cough, congestion. GENERAL: Elderly, well-nourished, and in no acute distress. HEAD: Normocephalic, atraumatic. CHEST: Clear to auscultation. ?No respiratory distress. HEART: Regular rate and rhythm.? NEURO: ?Alert and oriented x3. Patient screened in triage and initial orders placed.? ?Additional care and disposition to be based upon?diagnostic testing and treatment. <KATIUSKA Lamb Last Filed: 05/26/25 01:34> Source: patient <KATIUSKA Lamb Last Filed: 05/26/25 01:34> Mode of arrival: ambulatory <KATIUSKA Lamb Last Filed: 05/26/25 01:34> Limitations: no limitations <KATIUSKA Lamb Last Filed: 05/26/25 01:34> History of Present Illness HPI Narrative: Agree with above HPI. Reports history of COPD. Feels like she is in an exacerbation. Has been using her inhalers and nebulizers at home without improvement. Reports some swelling throughout legs which is chronic for her. Wears compression stockings. Denies chest pain. <Negrita Quan PA-C - Last Filed: 05/26/25 01:34> Related Data Home Medications: Home Medications ?Medication ?Instructions ?Recorded ?Confirmed ?Last Taken ?Type Grass Fed Beef Organs 1 cap PO AC 09/25/23 09/25/23 Unknown History Saccharomyces boulardii 250 mg 250 mg PO BID 09/25/23 09/25/23 Unknown History capsule amlodipine 5 mg tablet (Norvasc) 7.5 mg PO DAILY 09/25/23 09/25/23 Unknown History biotin 5,000 mcg chewable tablet 5,000 mcg PO DAILY 09/25/23 09/25/23 Unknown History cholecalciferol (vitamin D3) 25 50 mcg PO DAILY 09/25/23 09/25/23 Unknown History mcg (1,000 unit) capsule glucosamine sulfate 500 mg tablet 1,500 mg PO DAILY 09/25/23 09/25/23 Unknown History (Glucosamine) hydroxyzine HCl 100 mg tablet 100 mg PO TID PRN hives 09/25/23 09/25/23 Unknown History potassium chloride 10 mEq 10 meq PO DAILY 09/25/23 09/25/23 Unknown History tablet,extended release sodium chloride 1 gram tablet 1,000 mg PO DAILY 09/25/23 09/25/23 Unknown History <Lore Nguyen PA-C - Last Filed: 05/26/25 11:15> Allergies/Adverse Reactions: Allergies Allergy/AdvReac Type Severity Reaction Status Date / Time Penicillins Allergy Unknown Pruritic Verified 05/25/25 15:19 rash Opioids - Morphine Analogues AdvReac Mild Nausea Verified 05/25/25 15:19 <Lore Nguyen PA-C - Last Filed: 05/26/25 11:15> Review of Systems 2 Review of Systems: All systems reviewed & are unremarkable except as noted in HPI. <Negrita Quan PA-C - Last Filed: 05/26/25 01:34> All systems reviewed & are unremarkable except as noted in HPI and below < Negrita Quan PA-C - Last Filed: 05/26/25 01:34> FORMERLY [facility], [facility] Past Medical History Medical History: Medical History Scoliosis Chronic obstructive pulmonary disease, unspecified <Lore Nguyen PA-C - Last Filed: 05/26/25 11:15> Family History Family History: Family History Father Hypertension Family history of coronary artery disease, Onset Age: 85 Patient's father is Family history of lung cancer Mother Hypertension Family history of coronary artery disease, Onset Age: 83 Patient's mother is Acute myocardial infarction <Lore Nguyen PA-C - Last Filed: 05/26/25 11:15> Social History Social History: Social History Smoking packs per day: 10 Smoking cigarettes per day: 200.0 Years smoked: 40 Smoking pack-years: 400.00 Smoking status: Former smoker Tobacco type: cigarettes Second hand tobacco smoke exposure: No Alcohol intake: never Substance use: never Substance use type: marijuana Other substance usage details: cbd Last use: 09/23/2023 Lack of Transportation: No Lack of Food: Never True Current Housing: I Have Housing Concerned About Future Housing: No Difficulty Paying Gas/Electric Bills: No Difficulty Paying for Meds: No Currently Unemployed: No Education: Bachelor's Degree Difficulty w/ Childcare or Family Care: No Spiritual care concerns: No <Lore Nguyen PA-C - Last Filed: 05/26/25 11:15> Exam 2 Narrative: GENERAL: Elderly, thin, non-toxic, in no acute distress. HEAD: Normocephalic, atraumatic. RESPIRATORY: Airway patent, respirations nonlabored. Clear to auscultation bilaterally. No significant focal lung sounds. No wheezing. CARDIOVASCULAR: Regular rate and rhythm without murmurs, rubs, or gallops. ABDOMINAL: Soft, nontender, nondistended. Normoactive BS. MUSCULOSKELETAL: Moves all extremities. No gross deformities. Trace peripheral edema palpated under compression stockings. No calf tenderness. SKIN: Warm, dry, normal color. NEURO: A&O X3. Speech clear. Cranial nerves II-XII grossly intact. Steady gait. No ataxic movements. PSYCHIATRIC: Appropriate mood and affect. Normal interaction. <KATIUSKA Lamb Last Filed: 05/26/25 01:34> Course Vital Signs Vital signs: Vital Signs Temperature 98.1 F 05/25/25 15:19 Pulse Rate 93 05/25/25 15:19 Respiratory Rate 19 05/25/25 15:19 Blood Pressure 150/63 H 05/25/25 15:19 Pulse Oximetry 96 05/25/25 15:19 Oxygen Delivery Room Air 05/25/25 15:19 Temperature 97.4 F L 05/25/25 18:44 Pulse Rate 79 05/25/25 21:16 Respiratory Rate 18 05/25/25 21:16 Blood Pressure 143/68 H 05/25/25 21:16 Pulse Oximetry 98 05/25/25 21:16 Oxygen Delivery Room Air 05/25/25 18:49 <KATIUSKA Burton Last Filed: 05/26/25 11:15> Vital Signs Temperature 98.1 F 05/25/25 15:19 Pulse Rate 93 05/25/25 15:19 Respiratory Rate 19 05/25/25 15:19 Blood Pressure 150/63 H 05/25/25 15:19 Pulse Oximetry 96 05/25/25 15:19 Oxygen Delivery Room Air 05/25/25 15:19 Temperature 97.4 F L 05/25/25 18:44 Pulse Rate 79 05/25/25 21:16 Respiratory Rate 18 05/25/25 21:16 Blood Pressure 143/68 H 05/25/25 21:16 Pulse Oximetry 98 05/25/25 21:16 Oxygen Delivery Room Air 05/25/25 18:49 <KATIUSKA Lamb Last Filed: 05/26/25 01:34> MDM - SOB/Dyspnea MDM Narrative Medical decision making narrative: Patient presented to ED with increased shortness breath over the last few days, history of COPD. Was given azithromycin and 3 day course of steroids from urgent care but denied improvement. States she does not typically respond to azithromycin. Vital signs are stable upon arrival. Patient's oxygen stable on room air. Was ambulated throughout the ED, no ambulatory hypoxia noted. Laboratory studies without leukocytosis. Very mild anemia noted. Consistent with previous records. CMP is unremarkable. Blood glucose very minimally elevated. EKG with some nonspecific ST changes, no acute ST elevation or depression. Troponin is undetectable. Patient denying chest pain. Chest x-ray is clear. Viral swabs are negative. D-dimer elevated to 1.33. CTA of chest PE study obtained and without acute process, no large PE, motion artifact limited in smaller arteries, however have low suspicion for this given lack of tachycardia, hypoxia, no evidence of R heart strain. Discussed lab and imaging findings, overall reassuring w/u with patient. The steroid pack that the urgent care had given her was a relatively small dose. Patient is already feeling improved after receiving Solu-Medrol here. Will discharge on 5 day course of prednisone 50 mg. Discussed starting antibiotics given new productive cough, subjective fevers at home. Utilize shared decision- making. Patient would prefer to start antibiotics. Will prescribe doxycycline. Patient has f/u with her hand finisher on . Advised to continue with this appt, continue nebs/inhalers at home. Discussed strict return precautions. She is in agreement with plan. Discharged in stable condition. <Negrita Quan PA-C - Last Filed: 05/26/25 01:34> Medical Records Attestation: I reviewed the patient's medical records. <Negrita Quan PA-C - Last Filed: 05/26/25 01:34> Lab Data Attestation: I reviewed the patient's lab results. <Negrita Quan PA-C - Last Filed: 05/26/25 01:34> Result diagrams: 05/25/25 16:34 05/25/25 16:34 <Lore Nguyen PA-C - Last Filed: 05/26/25 11:15> Labs: Lab Results 05/25/25 05/25/25 Range/Units 16:33 16:34 WBC 5.3 (4.5-10.0) K/mm3 RBC 3.98 L (4.2-5.4) M/mm3 Hgb 11.9 L (12.0-15.0) g/dL Hct 34.5 L (37.0-47.0) % MCV 86.7 (80-100) fl MCH 29.9 (26-34) pg MCHC 34.5 (32-36) g/dl RDW 13.1 (11.5-14.5) % Plt Count 321 (150-375) k/mm3 MPV 8.1 (7.4-10.4) fl Immature Gran % (Auto) 0.9 H (0-0.5) % Neut % (Auto) 85.0 H (45.5-73.1) % Lymph % (Auto) 9.6 L (18.3-44.2) % Teller % (Auto) 4.3 (2.6-8.5) % Eos % (Auto) 0.0 (0-4.4) % Baso % (Auto) 0.2 (0.2-1.2) % Lymph # (Auto) 0.51 L (0.9-3.2) K/mm3 Teller # (Auto) 0.2 (0.1-0.6) K/mm3 Eos # (Auto) 0.0 (0-0.3) K/mm3 Baso # (Auto) 0.0 (0.0-0.1) K/mm3 Abs Immat Gran (auto) 0.05 H (0.00-0.031) K/mm3 Absolute Neuts (auto) 4.5 (1.3-6.7) K/mm3 Absolute Nucleated RBC 0.000 (0.0-0.012) K/mm3 Nucleated RBC % 0.0 (0.0-0.2) % PT 13.3 (11.1-14.7) Seconds INR 1.0 APTT 26.7 (22.3-36.8) Seconds D-Dimer 1.33 H (<0.48) ug/mL Sodium 133 L (137-145) mmol/L Potassium 3.7 (3.4-5.0) mmol/L Chloride 99 (98-107) mmol/L Carbon Dioxide 23 (22-30) mmol/L Anion Gap 11 (4-12) mmol/L BUN 10 (7-17) mg/dL Creatinine 0.57 L (0.7-1.0) mg/dL Estim Creat Clear Calc 54 ml/min Estimated GFR > 60 (59 - ) Glucose 140 H (65-110) mg/dL Calcium 10.1 (8.4-10.2) mg/dL Total Bilirubin 0.2 (0.2-1.3) mg/dL AST 33 (14-36) U/L ALT 26 (6-35) U/L Alkaline Phosphatase 65 (38-126) U/L Troponin I < 0.012 (0.000-0.034) ng/mL Total Protein 7.7 (6.3-8.2) g/dL Albumin 4.4 (3.5-5.1) g/dL Influenza A (RT-PCR) Negative (Negative) Influenza B (RT-PCR) Negative (Negative) RSV (RT-PCR) Negative (Negative) SARS-CoV-2 RNA (RT-PCR) Negative (Negative) <Lore Nguyen PA-C - Last Filed: 05/26/25 11:15> Lab Results 05/25/25 05/25/25 Range/Units 16:33 16:34 WBC 5.3 (4.5-10.0) K/mm3 RBC 3.98 L (4.2-5.4) M/mm3 Hgb 11.9 L (12.0-15.0) g/dL Hct 34.5 L (37.0-47.0) % MCV 86.7 (80-100) fl MCH 29.9 (26-34) pg MCHC 34.5 (32-36) g/dl RDW 13.1 (11.5-14.5) % Plt Count 321 (150-375) k/mm3 MPV 8.1 (7.4-10.4) fl Immature Gran % (Auto) 0.9 H (0-0.5) % Neut % (Auto) 85.0 H (45.5-73.1) % Lymph % (Auto) 9.6 L (18.3-44.2) % Teller % (Auto) 4.3 (2.6-8.5) % Eos % (Auto) 0.0 (0-4.4) % Baso % (Auto) 0.2 (0.2-1.2) % Lymph # (Auto) 0.51 L (0.9-3.2) K/mm3 Teller # (Auto) 0.2 (0.1-0.6) K/mm3 Eos # (Auto) 0.0 (0-0.3) K/mm3 Baso # (Auto) 0.0 (0.0-0.1) K/mm3 Abs Immat Gran (auto) 0.05 H (0.00-0.031) K/mm3 Absolute Neuts (auto) 4.5 (1.3-6.7) K/mm3 Absolute Nucleated RBC 0.000 (0.0-0.012) K/mm3 Nucleated RBC % 0.0 (0.0-0.2) % PT 13.3 (11.1-14.7) Seconds INR 1.0 APTT 26.7 (22.3-36.8) Seconds D-Dimer 1.33 H (<0.48) ug/mL Sodium 133 L (137-145) mmol/L Potassium 3.7 (3.4-5.0) mmol/L Chloride 99 (98-107) mmol/L Carbon Dioxide 23 (22-30) mmol/L Anion Gap 11 (4-12) mmol/L BUN 10 (7-17) mg/dL Creatinine 0.57 L (0.7-1.0) mg/dL Estim Creat Clear Calc 54 ml/min Estimated GFR > 60 (59 - ) Glucose 140 H (65-110) mg/dL Calcium 10.1 (8.4-10.2) mg/dL Total Bilirubin 0.2 (0.2-1.3) mg/dL AST 33 (14-36) U/L ALT 26 (6-35) U/L Alkaline Phosphatase 65 (38-126) U/L Troponin I < 0.012 (0.000-0.034) ng/mL Total Protein 7.7 (6.3-8.2) g/dL Albumin 4.4 (3.5-5.1) g/dL Influenza A (RT-PCR) Negative (Negative) Influenza B (RT-PCR) Negative (Negative) RSV (RT-PCR) Negative (Negative) SARS-CoV-2 RNA (RT-PCR) Negative (Negative) <Negrita Quan PA-C - Last Filed: 05/26/25 01:34> Imaging Data Attestation: I personally reviewed and interpreted this imaging study as follows: < KATIUSKA Lamb Last Filed: 05/26/25 01:34> Radiologist's impression: ITS Impressions Chest X-Ray 05/25/25 17:37 IMPRESSION: No acute cardiopulmonary process. Chest CTA 05/25/25 20:29 IMPRESSION: Limited evaluation of the segmental and subsegmental pulmonary arteries in the right middle lobe and bilateral lower lobes due to motion artifact. No pulmonary emboli detected in the adequately visualized pulmonary arteries. No acute process detected in the chest. <KATIUSKA Lamb Last Filed: 05/26/25 01:34> ECG Data EKG #1: Attestation: I personally reviewed and interpreted this ECG as follows: <KATIUSKA Lamb Last Filed: 05/26/25 01:34> ECG completion date: 05/25/25 <KATIUSKA Lamb Last Filed: 05/26/25 01:34> ECG completion time: 18:57 <KATIUSKA Lamb Last Filed: 05/26/25 01:34> EKG Interpretation: normal rate (78), sinus rhythm, non-specific ST changes and RBBB (incomplete) <KATIUSKA Lamb Last Filed: 05/26/25 01:34> Critical Care Time Critical Care Time Critical Care Time: No <KATIUSKA Burton Last Filed: 05/26/25 11:15> Discharge Plan Discharge Clinical Impression: Acute exacerbation of chronic obstructive pulmonary disease <KATIUSKA Burton Last Filed: 05/26/25 11:15> Patient Disposition: Home <KATIUSKA Burton Last Filed: 05/26/25 11:15> Condition: Stable <KATIUSKA Burton Last Filed: 05/26/25 11:15> Instructions: Antibiotic Form, Upper Respiratory Infection (ED), COPD (Chronic Obstructive Pulmonary Disease) (ED) <Lore Nguyen PA-C - Last Filed: 05/26/25 11:15> Additional Instructions: Take steroids and antibiotics as prescribed. Continue your inhalers and nebulizers at home as needed. Follow-up with your hand finisher at your scheduled appointment. Return to the ED if you experience worsening or severe shortness of breath, chest pain, unable to keep down food or drink, persistent fevers, coughing blood, increased pain or swelling in your legs, or any other symptoms of concern. <Lore Nguyen PA-C - Last Filed: 05/26/25 11:15> Patient Language: Latvian <Lore Nguyen PA-C - Last Filed: 05/26/25 11:15> Prescriptions: New doxycycline monohydrate 100 mg tablet 100 mg PO BID 5 Days Qty: 10 0RF prednisone 50 mg tablet 50 mg PO DAILY Qty: 5 0RF No Action amlodipine [Norvasc] 5 mg Tablet 7.5 mg PO DAILY sodium chloride 1 gram Tablet 1,000 mg PO DAILY potassium chloride 10 mEq Tablet Extended Release 10 meq PO DAILY hydroxyzine HCl 100 mg Tablet 100 mg PO TID PRN (Reason: hives) Grass Fed Beef Organs 1 cap PO AC glucosamine sulfate [Glucosamine] 500 mg Tablet 1,500 mg PO DAILY Rx Instructions: administer with a meal cholecalciferol (vitamin D3) 25 mcg (1,000 unit) Capsule 50 mcg PO DAILY Saccharomyces boulardii 250 mg Capsule 250 mg PO BID biotin 5,000 mcg Tablet,Chewable 5,000 mcg PO DAILY tiotropium bromide [Spiriva with HandiHaler] 18 mcg capsule, w/inhalation device 1 cap inhalation DAILY Qty: 1 2RF Rx Instructions: puncture 1 cap using device; one dose = 2 inhalations prednisone 10 mg tablet 10 mg PO DIRECTED Qty: 11 0RF Rx Instructions: see taper instructions 20mg daily x 3 days, then 10mg x3 days then 5mg x3 days then stop Combivent Respimat 20-100 mcg/actuation mist 1 puff inhalation QID PRN (Reason: shortness of breath or wheezing) Qty: 4 3RF Rx Instructions: space evenly during waking hours <Lore Nguyen PA-C - Last Filed: 05/26/25 11:15> Follow-up/Referrals: Sina,JOSE RAUL Babin [Primary Care Provider] - <Lore Nguyen PA-C - Last Filed: 05/26/25 11:15> Time of Disposition: 21:32 <Lore Nguyen PA-C - Last Filed: 05/26/25 11:15> 21:32 <Negrita Quan PA-C - Last Filed: 05/26/25 01:34>
--- NOTE | 2025-05-25 15:54 | ECG_ITS ---
Test Date: 2025-05-25 18:57:54 Measurements Intervals [place] Rate: 78 P: 77 AL: 196 QRS: 75 QRSD: 116 T: 19 QT: 409 QTc: 467 Interpretive Statements SINUS RHYTHM LOW QRS VOLTAGE IN PRECORDIAL LEADS [QRS DEFLECTION < 1.0 mV IN CHEST LEADS] INCOMPLETE RIGHT BUNDLE BRANCH BLOCK [90+ ms QRS DURATION, TERMINAL R IN V1/V2, 40+ ms S IN I/aVL/V4/V5/V6] MODERATE ST DEPRESSION [0.05+ mV ST DEPRESSION] Compared to ECG 09/18/2024 23:09:10 Low QRS voltage now present Incomplete right bundle-branch block now present ST (T wave) deviation now present Right bundle-branch block no longer present Electronically Signed On 05-25-2025 22:09:38 CDT by Johana Barraza M.D.
[2025-05-25 16:47] LABS: Hematocrit 34.5 % (37.0-47.0); Hemoglobin 11.9 g/dL (12.0-15.0); Immature Granulocyte Percent A 0.9 % (0-0.5); Lymphocytes Absolute Auto 0.51 K/mm3 (0.9-3.2); Mean Corpuscular HGB Conc 34.5 g/dl (32-36); Mean Corpuscular Hemoglobin 29.9 pg (26-34); Mean Corpuscular Volume 86.7 fl (80-100); Nucleated Red Blood Cells Absolute Auto 0.000 K/mm3 (0.0-0.012); Nucleated Red Blood Cells Perc 0.0 % (0.0-0.2); Platelet Count Result 321 k/mm3 (150-375); Red Blood Count 3.98 M/mm3 (4.2-5.4); White Blood Count 5.3 K/mm3 (4.5-10.0)
[2025-05-25 16:57] LABS: Alanine Aminotransferase 26 U/L (6-35); Albumin Level 4.4 g/dL (3.5-5.1); Alkaline Phosphatase 65 U/L (38-126); Anion Gap 11 mmol/L (4-12); Aspartate Amino Transferase 33 U/L (14-36); Bilirubin,Total 0.2 mg/dL (0.2-1.3); Blood Urea Nitrogen 10 mg/dL (7-17); Calcium 10.1 mg/dL (8.4-10.2); Carbon Dioxide 23 mmol/L (22-30); Chloride 99 mmol/L (98-107); Estimated CRCL calculation 54 ml/min; Estimated Glomerular Filt Rate > 60; Glucose 140 mg/dL (65-110); INR 1.0; Potassium 3.7 mmol/L (3.4-5.0); Prothrombin Time 13.3 Seconds (11.1-14.7); Sodium 133 mmol/L (137-145); Total Protein 7.7 g/dL (6.3-8.2)
[2025-05-25 16:58] LABS: Partial Thromboplastin Time 26.7 Seconds (22.3-36.8)
[2025-05-25 17:23] LABS: Influenza A QL RT-PCR Negative (Negative); Influenza B QL RT-PCR Negative (Negative); RSV RNA, RT-PCR Negative (Negative); SARS-CoV-2 RNA PCR Negative (Negative)
--- OUTSIDE RECORDS SUMMARY | 2025-05-25 18:55 | XMS_ITS | Encounter Summary ---
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
--- OUTSIDE RECORDS SUMMARY | 2025-05-25 18:56 | XMS_ITS | Clinical Summary ---
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 Active Lactobac no.41/Bifidobact no.7 (PROBIOTIC-10 [...] 05/2022 Assessment & Plan (09/25/2024 10:32 AM STABLE HELPER): This is a significant, separately identifiable problem [...] Description 05/25/2025 3:15 PM CDT Office Visit [facility] at [address] [phone] Prudence Gautam PA COPD with exacerbation (HCC) (Primary Dx) 05/25/2025 Telephone [facility] at [address] [address] Lavonne Whyte, GARDEN WORKER 05/23/2025 3:30 PM CDT Office Visit [facility] at [address] [phone] Lavonne Whyte, GARDEN WORKER Lower respiratory infection (e.g., bronchitis, pneumonia, pneumonitis, pulmonitis) (Primary Dx); COPD exacerbation (HCC) 03/31/2025 10:00 AM CDT Office Visit [facility] Internal Medicine at [place] [address] [place] [address] [address] [place] [address] Talya Andino NP Physical exam, [...] 03/31/2025(Deferr ed: Patient Refused - not season),10/30/2023,09/02/2023 Mister Mario Sars-Cov-2 Bivalent V accination (12+ YRS) 09/15/2024,07/28/2022 [...] on file 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 Gender Identity Not on file Sexual Orientation [...] 03/31/2025 10:05 AM CDT Plan of Treatment Health Maintenance Due Date Last Done Comments Hepatitis C Screening 1945 Osteoporosis Screening-Bone Density Scan 1945 Hepatitis B Screening 1964 Zoster Vaccine (1 of 2) 1965 Covid-19 Vaccine (2023- 5 season) 2024 09/15/2024, 07/28/2022, 03/06/2022, Additional [...] history exists Medical Devices Implanted Type Area Bulk Plant Manager Device Identifier Shelf Expiration Date Model / Serial / Lot Sveta Ramirez Piston Otology 5mm .5mm Eclipse 360d Incus Wide Flat Ribbon [id number] - [id number] Implanted:Qty: 1 on 08/11/2022 by Navjot Salas MD at [facility] Right: Ear Sveta Ramirez [id number] 08/19/2026 [id number] / / [id number] Procedures Procedure Name Priority Date/Time Associated Diagnosis Comments POC INFLUENZA A/B, COVID-19 ANTIGEN Routine 05/23/2025 3:43 PM CDT Lower respiratory infection (e.g., bronchitis, pneumonia, pneumonitis, pulmonitis) from Last 3 Months Results * POC Influenza A/B, COVID-19 antigen (05/23/2025 3:43 PM CDT) Influenza A Ag, POC Negative Negative [facility] Influenza B Ag, POC Negative Negative [facility] COVID-19 Ag POC Presumptive Negative Presumptive Negative, Invalid [facility] 05/23/2025 3:43 PM CDT us Lavonne Whyte NP POINT OF CARE TEST ORDERABLES Final Result [facility] [address] [id number], [facility] from Last 3 Months Insurance [employer] MED[employer] PPO [employer] MEDICARE PPO [employer] CHOICE MEDICARE PPO Advance Directives For more information, please contact: [phone] Documents on File Type Date Recorded 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 [address] [place] [address] PCP - General Internal Medicine 03/27/24
--- OUTSIDE RECORDS SUMMARY | 2025-05-25 18:56 | XMS_ITS | Encounter Summary ---
Author Organization [facility] Healthcare Address [address] [place] [address] Care Team Providers Care Superintendent Stevedoring Name Role Phone Talya Andino NP Primary Care Provider [phone] Encounter Details Date Type Department Care Team (Late st Contact Info) Description 05/25/2025 3:15 PM CDT Office Visit [facility] at [address] [phone] Prudence Gautam PA [address] [place] [address] [address] [place] [address] COPD with exacerbation (HCC) (Primary [...] on file 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 EMS was called from the front clerk due to respiratory distress. Review of Systems [...] in and EMS was called from the front clerk staff due to labored breathing -upon bringing [...] Primary documented in this encounter Care Teams Superintendent Stevedoring Relationship Specialty Start Date End Date Talya Andino NP [address] [place] [address] PCP - General Internal Medicine 03/27/24 documented as of this encounter
--- OUTSIDE RECORDS SUMMARY | 2025-05-25 18:56 | XMS_ITS | Encounter Summary ---
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 Gender Identity Not on file Sexual Orientation Not on file documented as of this encounter Miscellaneous Notes * Telephone Encounter - Vonda Obrien LPN - 05/25/2025 12:41 PM CDT Pt called back and notified her of response abd pt reports she will return to clinic * Telephone Encounter - Vonda Obrien LPN - 05/25/2025 11:19 AM CDT LVM [...] on filedocumented in this encounter Care Teams Professor Of Biostatistics Relationship Specialty Start Date End Date Talya Andino NP [address] [facility] [address] [place] [address] PCP - General Internal Medicine 03/27/24 documented as of this encounter
--- OUTSIDE RECORDS SUMMARY | 2025-05-25 18:56 | XMS_ITS | Referral Summary ---
Author Organization [address] Address [address] [place] [address] [place] [address] Care Team Providers Care Solar Sales Estimator Name Role Phone Talya Andino NP Primary Care Provider [phone] Encounters Date Type Department Care Team Description 05/25/2025 3:15 PM CDT Office Visit [facility] at [address] [address] Prudence Gautam PA COPD with exacerbation (HCC) (Primary Dx) 05/25/2025 Telephone [facility] at [address] [address] Lavonne Whyte NP 05/23/2025 3:30 PM CDT Office Visit [facility] at [address] [address] Lavonne Whyte NP Lower respiratory infection (e.g., bronchitis, pneumonia, pneumonitis, pulmonitis) (Primary Dx); COPD exacerbation (HCC) 03/31/2025 10:00 AM CDT Office Visit [facility] Internal Medicine at [address] [place] [address] Talya Andino NP Physical exam, [...] HCL ORAL Take 2 tablets by mouth 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 Was recently admitted at [facility]. Nephrology consulted, treated with Na tabs [...] on file Legal Sex Female 7:51 PM LAUNDRY PRESS OPERATOR Gender Identity Not on file Sexual Orientation [...] 03/31/2025 10:05 AM CDT Plan of Treatment Not on file Medical Devices Implanted Type Area Hydroelectric Mechanic Device Identifier Shelf Expiration Date Model / Serial / Lot Sveta Ramirez Piston Otology 5mm .5mm Eclipse 360d [employer]us Wide Flat Ribbon [id number] - [id number] Implanted:Qty: 1 on 08/11/2022 by Navjot Salas MD at [facility] Right: Ear [employer] [id number] 08/19/2026 [id number] / / [id number] Procedures Procedure Name Priority Date/Time Associated Diagnosis Comments POC INFLUENZA A/B, COVID-19 ANTIGEN Routine 05/23/2025 3:43 PM CDT Lower respiratory infection (e.g., bronchitis, pneumonia, pneumonitis, pulmonitis) from Last 3 Months Results * POC Influenza A/B, COVID-19 antigen (05/23/2025 3:43 PM CDT) Influenza A Ag, POC Negative Negative [facility] Influenza B Ag, POC Negative Negative [facility] COVID-19 Ag POC Presumptive Negative Presumptive Negative, Invalid [facility] Nasal 05/23/2025 3:43 PM CDT Lavonne Whyte NP POINT OF CARE TEST ORDERABLES Final Result [facility] [place] [address], [facility] from Last 3 Months Insurance [employer] MEDICARE PPO [employer] MEDICARE PPO [employer] CHO[employer] MEDICARE PPO Advance Directives For more information, please contact: [phone] Documents on File Type Date Recorded 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
--- OUTSIDE RECORDS SUMMARY | 2025-05-25 18:56 | XMS_ITS | Clinical Summary ---
Author Organization [facility] Address [address] [place] [address] Care Team Providers Care Cigar Machine Feeder Name Role Phone Keily Ramesh MD Primary Care Provider [phone] Social History Tobacco Use Types Packs/Day Years [...] age to complete this topic Care Teams Cigar Machine Feeder Relationship Specialty Start Date End Date Keily Ramesh MD [address] [facility] [address] [place] [address] PCP - General 11/22/13
--- NOTE | 2025-05-25 19:11 | PC.NURSE ---
Assumed care of pt from Marge RN and Debby RN at this time. BSSR recieved. ER provider Negrita at bedside at this time.
[2025-05-25 19:17] LABS: Troponin I < 0.012 ng/mL (0.000-0.034)
== END 2025-05-25 21:58 | disposition home or self-care (01) ==
PROVIDERS: Physician Assistant; Emergency Provider Physician Assistant; PCP Nurse Practitioner Family
DX: J44.1 Chronic obstructive pulmonary disease with (acute) exacerbation (principal); Z20.822 Contact with and (suspected) exposure to COVID-19; M41.9 Scoliosis, unspecified; Z87.891 Personal history of nicotine dependence; I45.10 Unspecified right bundle-branch block
CPT/HCPCS: 36415; 71046; 71275; 80053; 84484; 85025; 85380; 85610; 85730; 87637; 93005; 96374; 99284; J2919; Q9967

== ENCOUNTER 2025-08-31 09:47 | Outpatient (CLI) | payer MEDICARE, SELFPAY ==
--- OUTSIDE RECORDS SUMMARY | 2024-05-03 16:30 | XMS_ITS ---
Author Organization [employer] [facility] ([address]) Address [address] [place] [address] Care Team Providers Care Buttonhole Tacker Name Role Phone Leigh Yasmin Primary Care Provider Unavailab Leann Guaman Unavailable [phone] Lore Padilla Unavailable Unavailable ZZ-Migration, Provider Unavailable Unavailab le Allergies Allergen (clinical drug ingredient) Drug/Non Drug Allergy documented on EMR Reaction Allergy Type Onset Date Status Penicillin hives Drug Allergy Active REASON FOR VISIT [facility] To [facility] Conversion Encounter Medications Medication SIG (Take, Route, Frequency, Duration) Notes Start Date End Date Status Albuterol Sulfate (2.5 MG/3ML) 0.083% 3 mL by nebulizer every 6 hours Active ALBUTEROL (EQV-PROAIR HFA) 90 MCG/INH 2 PUFF(S) INHALED EVERY 6 HOURS *Please review for potential replacement for e-prescription and drug interaction check* Active Potassium Chloride ER 10 MEQ 1 cap(s) orally 2 times a day Active Ipratropium Sulphur 0.02 % 2.5 mL by nebulizer 4 times a day Active hydrOXYzine HCl 10 MG 2 tab(s) orally Qday, PRN Active Glucosamine Sulfate 500 MG 1 tab(s) orally 3 times a day; Duration: 30 day(s) Active Biotin 5 MG 1 tab(s) orally once a day Active Saccharomyces boulardii 250 MG 1 cap(s) orally 2 times a day Active Trelegy Ellipta 100/62.5/25 MCG 1 INHALATION PO QDAY *Please review and pick correct strength-formulatio n from Medispan options. If intended option is not shown, discontinue and re-order from Quick Search* Active Crab Orchard-3 1000 MG 1 cap(s) orally once a day; Duration: 30 day(s) Active Wixela Inhub 100 MCG-50 MCG 1 INH INHALED 2 TIMES A DAY; Duration: 30 DAY(S) *Please review and pick correct strength-formulatio n from Medispan options. If intended option is not shown, discontinue and re-order from Quick Search* Active Spiriva HandiHaler 18 MCG 1 cap(s) inhaled once a day; Duration: 30 day(s) Active Encounters Encounter Location Date Provider Diagnosis [address] [address] 05/03/2024 Provider Mayda Chronic obstructive pulmonary disease, unspecified J44.9 Assessments Encounter Date Diagnosis (ICD Code) Assessment Notes Treatment Notes Treatment Clinical Notes Section Notes 05/03/2024 Chronic obstructive pulmonary disease, unspecified (ICD-10 - J44.9) Plan Of Treatment Medication Medication Name Sig Start Date Stop Date Notes Albuterol Sulfate (2.5 MG/3ML) 0.083% 3 mL by nebulizer every 6 hours ALBUTEROL (EQV-PROAIR HFA) 90 MCG/INH 2 PUFF(S) INHALED EVERY 6 HOURS *Please review for potential replacement for e-prescription and drug interaction check* Ipratropium Sulphur 0.02 % 2.5 mL by nebulizer 4 times a day Trelegy Ellipta 100/62.5/25 MCG 1 INHALATION PO QDAY *Please rev iew and pick correct strength-formulation from Medispan options. If intended option is not shown, discontinue and re-order from Quick Search* Progress Notes * Angella LOZADOB: 6 (80 yo F)Acc No.[id number]:05/03/2024 Patient: Angella FARLEY Provider: Shakira Ko :1945 A ge:79 Y S ex:Female Date:05/03/2024 Address:[facility] [address] [place], [id number] Pcp:Yasmin Abraham Subjective: * Chief Complaints: * [facility] * Medical History: * Medications: T aking Spiriva HandiHaler 18 MCG Capsule 1 cap(s) inhaled once a day , Taking Wixela Inhub 100 MCG-50 MCG POWDER 1 INH INHALED 2 TIMES A DAY , Notes to Pharmacist: *Please review and pick correct strength-formulation from [facility] options. If intended option is not shown, discontinue and re-order from Quick Search*, Taking Glucosamine Sulfate 500 MG Tablet 1 tab(s) orally 3 times a day , Taking Saccharomyces boulardii 250 MG Capsule 1 cap(s) orally 2 times a day , Taking Crab Orchard-3 1000 MG Capsule 1 cap(s) orally once a day , Taking Biotin 5 MG Tablet Disintegrating 1 tab(s) orally once a day , Taking Potassium Chloride ER 10 MEQ Capsule Extended Release 1 cap(s) orally 2 times a day , Taking hydrOXYzine HCl 10 MG Tablet 2 tab(s) orally Qday, PRN * Allergies: P enicillin: hives. Objective: * Vitals: Assessment: * Assessment: 1. C hronic obstructive pulmonary disease, unspecified - J44.9 Plan: * Treatment: * Billing Information: * Visit Code: * Procedure Codes: * Electronic signature of Peg LI-Migration on 08/31/2025 at 10:32 AM CDT Sign off status: Pending * Provider: Shakira perez Migration Date: 0 05/03/2024 Generated for Mark hopkins/Anival/Kemar on: 1 10:32 AM CDT
--- NOTE | 2025-08-31 09:53 | ECHO_ITS ---
Patient Info Name: Angella Espinoza Age: 80 years : 1945 Gender: Female Ht: 62 in Wt: 122 lbs BSA: 1.56 m2 HR: 78 bpm BP: 153 / 78 mmHg Technical Quality: Fair Exam Date: 08/31/2025 10:02 AM Patient Status: O Admit Date: 08/31/2025 Exam Type: CA echo doppler color flow Complete two-dimensional, color flow and Doppler transthoracic echocardiogram is performed. Head Animal Trainer: Esme Moon Attending Provider: Ramin Ingram DO Summary 1. Complete two-dimensional, color flow and Doppler transthoracic echocardiogram is performed. 2. Left ventricular chamber dimension is normal. 3. Left ventricular systolic function is normal, estimated at 65-70. 4. The left ventricular diastolic function is grade I diastolic dysfunction. 5. E/e' 12 is mildly elevated. 6. There is mild aortic valve sclerosis. 7. There is trace tricuspid valve regurgitation. 8. No pulmonary hypertension, estimated pulmonary arterial systolic pressure is 28 mmHg. Left Ventricle E/e' 12 is mildly elevated. Left ventricular chamber dimension is normal. Left ventricular systolic function is normal, estimated at 65-70. The left ventricular diastolic function is grade I diastolic dysfunction. Right Ventricle Right ventricular chamber dimension is normal. Right ventricular systolic function is normal. Left Atria Left atrial chamber dimension is normal. Right Atria Right atrial chamber dimension is normal. Aortic Valve The aortic valve is trileaflet. There is mild aortic valve sclerosis. There is no aortic valve stenosis. There is no aortic valve regurgitation. Pulmonic Valve There is no pulmonic regurgitation. Mitral Valve There is no mitral valve stenosis. There is no mitral valve regurgitation. Tricuspid Valve There is trace tricuspid valve regurgitation. No pulmonary hypertension, estimated pulmonary arterial systolic pressure is 28 mmHg. Pericardium/Pleural There is no pericardial effusion. Inferior Vena Cava Normal inferior vena cava with >50% collapse upon inspiration consistent with normal right atrial pressure, 5 mmHg. Aorta The aortic root size at the sinus of Valsalva is normal. Left Ventricular Outflow Tract Name Value Normal LVOT 2D LVOT Diameter 1.9 cm LVOT Doppler LVOT Peak Velocity 125 cm/s LVOT Peak Gradient 6 mmHg LVOT Mean Gradient 3 mmHg LVOT VTI 24 cm LVOT VTI/AV VTI Ratio 0.6 LVOT Stroke Volume 66 ml LVOT CO 4.6 l/min LVOT CI 2.9 l/min/m2 Pulmonic Valve Name Value Normal RVOT Doppler RVOT Peak Velocity 86 cm/s RVOT Peak Gradient 3 mmHg PV Doppler PV Peak Velocity 121 cm/s PV Peak Gradient 6 mmHg Mitral Valve Name Value Normal MV Diastolic Function MV E Peak Velocity 87 cm/s MV A Peak Velocity 134 cm/s MV E/A 0.6 MV Decel Time (PW) 266 ms Tricuspid Valve Name Value Normal TV Regurgitation Doppler TR Peak Velocity 241 cm/s TR Peak Gradient 23 mmHg Estimated PAP/RSVP RA Pressure 5 mmHg <=5 PA Systolic Pressure 28 mmHg <36 RV Systolic Pressure 28 mmHg <36 Aorta Name Value Normal Ascending Aorta Ao Root Diameter (MM) 3.4 cm Ao Root Diam Index (MM) 2.1 cm/m2 Aortic Valve Name Value Normal AV Doppler AV Peak Velocity 162 cm/s AV Peak Gradient 10 mmHg AV Mean Gradient 6 mmHg AV VTI 37 cm AV Area (Cont Eq VTI) 1.8 cm2 >=3.0 AV Area (Cont Eq Good) 2.1 cm2 AV DI (Good) 0.78 AV Regurgitation 2D LVOT Area 2.8 cm2 Ventricles Name Value Normal LV Dimensions 2D/MM IVS Diastolic Thickness (2D) 0.7 cm 0.6-1.0 IVS Diastole Thickness (MM) 0.8 cm 0.6-0.9 LVID Diastole (2D) 4.0 cm 3.8-5.2 LVID Diastole (MM) 5.0 cm 3.8-5.2 LVIW Diastolic Thickness (2D) 0.7 cm 0.6-0.9 LVIW Diastolic Thickness (MM) 0.9 cm 0.6-0.9 LVID Systole (2D) 2.5 cm 2.2-3.5 LVID Systole (MM) 2.4 cm 2.2-3.5 LVOT Diameter 1.9 cm LV Mass (2D Cubed) 76.77 g 67.00-162.00 LV Mass Index (2D Cubed) 49 g/m2 43-95 Relative Wall Thickness (2D) 0.34 <=0.42 LV Mass (MM Cubed) 145.80 g 67.00-162.00 LV Mass Index (MM Cubed) 93 g/m2 43-95 Relative Wall Thickness (MM) 0.38 LV Fractional Shortening/Ejection Fraction 2D/MM LV Fractional Shortening (2D) 37 % 27-45 LV Fractional Shortening (MM) 51 % 27-45 LV EF (MM Teichholz) 82 % LV EF (2D Teichholz) 67 % LV Diastolic Volume (4C MOD) 39 ml LV EF (4C MOD) 69 % LV Diastolic Volume (2C MOD) 42 ml LV EF (2C MOD) 72 % LV Diastolic Volume (BP MOD) 40 ml 46-106 LV Diastolic Volume Index (BP MOD) 26 ml/m2 29-61 LV Systolic Volume (BP MOD) 13 ml 14-42 LV Systolic Volume Index (BP MOD) 8 ml/m2 8-24 LV EF (BP MOD) 69 % 54-74 LV Diastolic Length (4C) 6.4 cm LV Systolic Length (4C) 5.2 cm LV Stroke Volume (4C MOD) 27 ml Atria Name Value Normal LA Dimensions LA Dimension (MM) 3.5 cm 2.7-3.8 LA Volume (4C A-L) 21 ml LA Volume (BP A-L) 25 ml RA Dimensions RA Systolic Major Tyler Length (4C) 4.3 cm 2.2-2.8 RA Area (4C) 10.3 cm2 <=18.0 Report Signatures
--- OUTSIDE RECORDS SUMMARY | 2025-08-31 10:32 | XMS_ITS | Clinical Summary ---
Author Organization [facility] Address [address] [place] [address] Care Team Providers Care Tire Mold Engraver Name Role Phone Keily Ramesh MD Primary Care Provider [phone] Allergies Active Allergy Reactions Criticality Noted Date Comments Hydrocodone Vomiting 06/11/2025 Penicillins Hives 06/11/2025 Medications methylPREDNISol one, NABEEL, (MEDROL DOSEPAK) 4 MG tablet Take 1 tablet (4 mg total) by mouth 2 (two) times daily. Follow package directions 1 each Active Encounters Date Type Department Care Team Description 06/11/2025 1:06 PM CDT - 06/11/2025 6:26 PM CDT Emergency [facility] [place] [address] Damián Nair MD Breathing Problem Discharge Disposition: Home or Self Care (Routine Discharge) 06/11/2025 Travel from Last 3 Months Social History Tobacco Use Types Packs/Day Years Used Date Smoking Tobacco: Former Cigarettes Smokeless Tobacco: Never Tobacco Cessation:Counseling Given: Not Answered Alcohol Use Standard Drinks/Week Comments Never 0 (1 standard drink = 0.6 oz pur e alcohol) Comments No Sex and Gender Information Value Date Recorded Sex Assigned at Not on file Legal Sex Female 6:41 PM CDT Gender Identity Not on file Sexual Orientation Not on file Last Filed Vital Signs Vital Sign Reading Time Taken Comments Blood Pressure 146/82 06/11/2025 6:12 PM CDT Pulse 104 06/11/2025 3:05 PM CDT Temperature 36.8 C (98.2 F) 06/11/2025 12:18 PM CDT Respiratory Rate 16 06/11/2025 3:05 PM CDT Oxygen Saturation 96% 06/11/2025 6:12 PM CDT Inhaled Oxygen Concentration - - Weight 59 kg (130 lb) 06/11/2025 1:10 PM CDT Height 160 cm (5' 3) 06/11/2025 1:10 PM CDT Body Mass Index 23.03 06/11/2025 1:10 PM CDT Plan of Treatment Health Maintenance Due Date Last Done Comments Hepatitis C 1963 Zoster Vaccines (1 of 2) 1996 Annual Medicare Wellness Visit 2011 Dexa Scan (General) 2011 COVID-19 Vaccine ( season) 2025 09/15/2024, 09/09/2024, 05/06/2024, Additional history exists Influenza Adult (#1) 2025 09/12/2024, 09/09/2024, 10/30/2023, Additional history exists DTaP, Tdap and Td Vaccines (2 - Td or Tdap) 10/19/2027 10/19/2017 Pneumococcal Vaccine: 50+ Years Completed 03/28/2023, 10/30/2017, 09/19/2017, Additional history exists RSV Immunization or 60+ Years Completed 10/30/2023 Meningococcal B Vaccine Aged Out No l onger eligible based on patient's age to complete this topic Meningococcal Vaccine Aged Out No gayle jerardo eligible based on patient's age to complete this topic RSV Immunizations Under 20 Months Aged Out No longer eligible based on patient's age to complete this topic Procedures Procedure Name Priority Date/Time Associated Diagnosis Comments CTA CHEST PE PROTOCOL STAT 06/11/2025 5:12 PM CDT XR CHEST PORTABLE STAT 06/11/2025 1:4 3 PM CDT ECG 12-LEAD Routine 06/11/2025 1:29 PM CDT CULTURE, BACTERIA, BLOOD STAT 06/11/2025 1:10 PM CDT CULTURE, BACTERIA, BLOOD STAT 06/11/2025 1:10 PM CDT LACTIC ACID W REFLEX (SEPSIS) STAT 06/11/2025 1:10 PM CDT PROCALCITONIN (PCT) STAT 06/11/2025 1 :10 PM CDT PRO-BRAIN NATRIURETIC PEPTIDE STAT 06/11/2025 1:10 PM CDT TROPONIN, QUANT STAT 06/11/2025 1:10 PM CDT COMPREHENSIVE METABOLIC PANEL STAT 06/11/2025 1:10 PM CDT CBC W/DIFF AUTOMATED STAT 06/11/2025 1:10 PM CDT from Last 3 Months Results * CTA CHEST PE PROTOCOL (06/11/2025 5:12 PM CDT) Anatomical Region Laterality Modality Chest Computed Tomogra phy 06/11/2025 5:14 PM CDT Impressions 06/11/2025 5:18 PM CDT IMPRESSION: 1. No evidence of pulmonary emboli. 2. No evidence of focal pulmonary consolidation or effusion. 3. Minimal nonspecific groundglass opacity anterior medial left upper lobe. This may be related to air trapping or atelectasis. Referred By: Interpreted By: Miguel Jaimes MD, 06/11/2025 5:14 PM Narrative 06/11/2025 5:[address] [facility] [address] [place], [place] [address] Examination: CTA CHEST PE PROTOCOL Exam time: 06/11/2025 5:05 PM Clinical history: Shortness of breath. Leg swelling. Dyspnea. Comparison: No prior exam Technique: CTA chest was performed following bolus intravenous injection of 80 mL Isovue 370 contrast material. Coronal and sagittal multiplanar reconstruction images were obtained. Coronal MIP, maximum intensity projection images were performed. CT dose reduction techniques were utilized. Findings: There is good opacification of the pulmonary arterial system from the least the level of the pulmonary outflow tract to the subsegmental pulmonary artery branches within each lung and there are no findings suggestive of pulmonary emboli. There is no evidence of focal pulmonary consolidation. There are linear opacities within the medial aspect of the right upper and middle lobes and the anterior aspect of the left upper lobe consistent with nonspecific scarring or subsegmental atelectasis. There is minimal nonspecific groundglass opacity within the anterior medial left upper lobe. This may be related to air trapping or atelectasis. No evidence of pleural effusion. No evidence of pathologically enlarged supraclavicular, axillary, mediastinal, or hilar lymph nodes. Atherosclerotic calcifications of the aortic arch and descending thoracic aorta with no evidence of aneurysmal dilatation. Cardiac chambers appear unremarkable in size. No evidence of pericardial thickening or effusion. Previous cholecystectomy. Otherwise, limited images of the upper abdomen appear unremarkable. No evidence of destructive bone lesions. Procedure Note Miguel Jaimes MD - 06/11/[address] [address] Examination: CTA CHEST PE PROTOCOL Exam time: 06/11/2025 5:05 PM Clinical history: Shortness of breath. Leg swelling. Dyspnea. Comparison: No prior exam Technique: CTA chest was performed following bolus intravenous injectionof 80 mL Isovue 370 contrast material. Coronal and sagittal multiplanarreconstruction images were obtained. Coronal MIP, maximum intensityprojection images were performed. CT dose reduction techniques wereutilized. Findings: There is good opacification of the pulmonary arterial systemfrom the least the level of the pulmonary outflow tract to thesubsegmental pulmonary artery branches within each lung and there are nofindings suggestive of pulmonary emboli. There is no evidence of focal pulmonary consolidation. There are linearopacities within the medial aspect of the right upper and middle lobes andthe anterior aspect of the left upper lobe consistent with nonspecificscarring or subsegmental atelectasis. There is minimal nonspecificgroundglass opacity within the anterior medial left upper lobe. This maybe related to air trapping or atelectasis. No evidence of pleuraleffusion. No evidence of pathologically enlarged supraclavicular, axillary,mediastinal, or hilar lymph nodes. Atherosclerotic calcifications of theaortic arch and descending thoracic aorta with no evidence of aneurysmaldilatation. Cardiac chambers appear unremarkable in size. No evidence of pericardialthickening or effusion. Previous cholecystectomy. Otherwise, limited images of the upper abdomenappear unremarkable. No evidence of destructive bone lesions. IMPRESSION: 1. No evidence of pulmonary emboli. 2. No evidence of focal pulmonary consolidation or effusion. 3. Minimal nonspecific groundglass opacity anterior medial left upperlobe. This may be related to air trapping or atelectasis. Referred By: Interpreted By: Miguel Jaimes MD, 06/11/2025 5:14 PM Damián Nair MD CT Final Result * XR CHEST PORTABLE (06/11/2025 1:43 PM CDT) Anatomical Region Laterality Modality Chest Radiographic Clarita ging 06/11/2025 1:46 PM CDT Impressions 06/11/2025 1:50 PM CDT IMPRESSION: No acute pulmonary infiltrate or consolidation. No acute pulmonary vascular congestion. Ordered By: ELSY CABRAL Interpreted By: Roland Hong, 06/11/2025 1:46 PM Narrative 06/11/2025 1:50 PM CDT [address] [address] IMAGING STUDIES: XR CHEST PORTABLE DATE: 06/11/2025 12:41 PM HISTORY: shortness of breath 80-year-old female. Fever, worsening shortness of breath, and sinus pressure for 2 weeks. Leg swelling. Clinical concern for exacerbation of COPD or congestive heart failure. Reportedly has completed 2 courses of antibiotics and steroids without relief. COMPARISON: None at this institution. Report from 2 view chest 06/04/2025 at [facility]. DISCUSSION: Portable AP upright view of the chest. Heart size is within normal limits. No acute pulmonary vascular congestion. Aortic atherosclerotic calcifications. Bilateral lung interstitial prominence with mild lung parenchymal scarring. No appreciable acute pulmonary infiltrate, pulmonary consolidation, pleural effusion, or pneumothorax. Spinal curvature and degenerative changes. Mild shoulder degenerative changes. Procedure Note Roland Hong MD - 06/11/2025 [facility] [address] [place], [place] [address] IMAGING STUDIES: XR CHEST PORTABLEDATE: 06/11/2025 12:41 PM HISTORY: shortness of breath 80-year-old female. Fever, worseningshortness of breath, and sinus pressure for 2 weeks. Leg swelling.Clinical concern for exacerbation of COPD or congestive heart failure.Reportedly has completed 2 courses of antibiotics and steroids withoutrelief. COMPARISON: None at this institution. Report from 2 view chest 06/04/2025t [facility]. DISCUSSION: Portable AP upright view of the chest. Heart size is within normal limits. No acute pulmonary vascularcongestion. Aortic atherosclerotic calcifications. Bilateral lung interstitial prominence with mild lung parenchymalscarring. No appreciable acute pulmonary infiltrate, pulmonaryconsolidation, pleural effusion, or pneumothorax. Spinal curvature and degenerative changes. Mild shoulder degenerativechanges. IMPRESSION: No acute pulmonary infiltrate or consolidation. No acute pulmonaryvascular congestion. Ordered By: ELSY CABRAL Interpreted By: Roland Hong, 06/11/2025 1:46 PM Elsy Cabral [employer] [facility] Final Resul t * ECG 12 lead (06/11/2025 1:29 PM CDT) 06/11/2025 1:29 PM CDT Narrative 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: : 1945 Requested By: ELSY CABRAL Order Number: [id number] Reading : Ronald Jimenez Measurements Intervals Blak[place] Rate: 91 P: 87 AR: 169 QRS: 96 QRSD: 121 T: 61 QT: 369 QTc: 455 Interpretive Statements SINUS RHYTHM WITH FREQUENT SUPRAVENTRICULAR PREMATURE COMPLEXES RIGHT BUNDLE BRANCH BLOCK [120+ ms QRS DURATION, UPRIGHT V1, 40+ ms S IN I/aVL/V4/V5/V6] No previous ECG available for comparison Other ischemic changes, not STEMI Preliminary EKG Interpretation by ELSA Rocha Procedure Note Ronald Jimenez MD - 06/12/[address] Test Date: 2025-06-11 Pat Name: ANGELLA LOZA Department: Room: [facility] Gender: Female 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 ([place]) RAD * LACTIC ACID W REFLEX (SEPSIS) (06/11/2025 1:10 PM CDT) LACTIC ACID VENOUS 0.9 0.4 - 2.0 MMOL/L 06/11/2025 2:00 PM CDT [facility] 06/11/2025 1:10 PM CDT Elsy Cabral [facility] Final Resul t [facility] [address] [place] [address], [place] [phone] * PROCALCITONIN (PCT) (06/11/2025 1:10 PM CDT) PROCALCITONIN <0.05 0.00 - 0.49 NG/ML 06/11/2025 2:49 PM CDT [facility] 06/11/2025 1:10 PM CDT Elsy Cabral [facility] Final Resul t Performing Organization Address City/State/[facility] Co de Phone Number [facility] [address] [place] [address], [place] [phone] * PRO-BRAIN NATRIURETIC PEPTIDE (06/11/2025 1:10 PM CDT) PRO-B TYPE NATRIURETIC PEPTIDE 247 <450 PG/ML 06/11/2025 2:36 PM CDT [facility] Comment: CUT POINTS ESTABLISHED BY [employer]NATIONAL [employer] ON NT PROBNP (ICON) STUDY (2006). AGE INDEPENDENT: <300 PG/ML HAS A 99% NEGATIVE PREDICTIVE VALUE FOR EXCLUDING ACUTE CHF <50 YEARS: >450 PG/ML IS CONSISTENT WITH ACUTE CHF 50-75 YEARS: >900 PG/ML IS CONSISTENT WITH ACUTE CHF >75 YEARS: >1800 PG/ML IS CONSISTENT WITH ACUTE CHF IN PATIENTS WITH RENAL INSUFFICIENCY (GFR <60), >1200 PG/ML YIELDS A DIAGNOSTIC SENSITIVITY AND SPECIFICITY OF 89% AND 72% FOR ACUTE CHF. 06/11/2025 1:10 PM CDT us Elsy Cabral [facility] Final Resul t [facility] [address] [place] [address], [place] [phone] * (ABNORMAL) COMPREHENSIVE METABOLIC PANEL (06/11/2025 1:10 PM CDT) [facility] GLUCOSE 111(H) 70 - 99 MG/DL 06/11/2025 2:36 PM CDT [facility] BUN 12 7 - 18 MG/DL 06/11/2025 2:36 PM CDT [facility] CREATININE S/P/B 0.63 0.55 - 1.02 MG/DL 06/11/2025 2:36 PM CDT [facility] SODIUM S/P/B 133(L) 136 - 145 MMOL/L 06/11/2025 2:36 PM CDT [facility] POTASSIUM S/P/B 3.0(LL) 3.5 - 5.1 MMOL/L 06/11/2025 2:36 PM CDT [facility] Comment: Critical Result(s) Called at: 14:35:43 on 06/11/2025 by: MARIANA OLVERA to and read back by:DANA Zhang CHLORIDE S/P/B 99 97 - 115 MMOL/L 06/11/2025 2:36 PM CDT [facility] CO2 26.3 21 - 32 MMOL/L 06/11/2025 2:36 PM CDT [facility] CALCIUM S/P/B 9.2 8.5 - 10.1 MG/DL 06/11/2025 2:36 PM CDT [facility] BILIRUBIN TOTAL S/P/B 0.4 0.2 - 1.2 MG/DL 06/11/2025 2:36 PM CDT [facility] Comment: THIS ASSAY IS NOT RECOMMENDED FOR PATIENTS UNDERGOING TREATMENT WITH ELTROMBOPAG DUE TO THE POTENTIAL FOR FALSELY ELEVATED RESULTS. TOTAL PROTEIN S/P/B 6.8 6.4 - 8.2 G/DL 06/11/2025 2:36 PM CDT [facility] ALBUMIN S/P/B 3.5 3.4 - 5.0 G/DL 06/11/2025 2:36 PM CDT [facility] AST 20 15 - 37 U/L 06/11/2025 2:36 PM CDT [facility] ALT 26 14 - 55 U/L 06/11/2025 2:36 PM CDT [facility] ALKALINE PHOSPHATASE S/P/B 64 50 - 136 U/L 06/11/2025 2:36 PM CDT [facility] ANION GAP 7.7 2 - 10 MMOL/L 06/11/2025 2:36 PM CDT [facility] BUN CREATININE RATIO 19.0 6 - 26 06/11/2025 2:36 PM CDT [facility] A/G RATIO 1.1 1.0 - 2.0 RATIO 06/11/2025 2:36 PM CDT [facility] GFR ESTIMATE >90 >90 ML/MIN/1.7 3 M2 06/11/2025 2:36 PM CDT [facility] Comment: NOTE: eGFR is not calculated for patients <18 years of age or gender unknown. This is an estimated GFR calculation using the new CKD EPI creatinine equation without race and so does not require a correction factor for race. This estimated GFR should not be used for calculating drug doses. 06/11/2025 1:10 PM CDT Elsy Cabral [facility] Final Resul t [facility] [address] [place] [address], [place] [phone] * CULTURE, BACTERIA, BLOOD (06/11/2025 1:10 PM CDT) Only the most recent of2 resultswithin the time period is included. Pathologist [facility] SPEC DESCRIPTION BLOOD 06/11/2025 12:31 PM CDT [facility] SPECIAL REQUESTS NO SPECIAL REQUEST 06/11/2025 12:31 PM CDT [facility] CULTURE RESULT NO GROWTH 5 DAYS 06/16/2025 1:54 PM CDT [facility] BLOOD SPECIMEN OBTAINED FOR BLOOD CULTURE / Unknown 06/11/2025 1:10 PM CDT 06/11/2025 1:36 PM CDT Elsy Cabral [facility] MICROBIOLOGY - GENERAL [place] Final Result [facility] [address] [place] [address], [place] [phone] * (ABNORMAL) CBC W/DIFF AUTOMATED (06/11/2025 1:10 PM CDT) [facility] WBC 10.95 4.5 - 11.0 x10'3/uL 06/11/2025 1:42 PM CDT [facility] RBC 4.08(L) 4.20 - 5.40 x10'6/uL 06/11/2025 1:42 PM CDT [facility] HGB 12.3 12.0 - 16.0 G/DL 06/11/2025 1:42 PM CDT [facility] HCT 35.4(L) 38.0 - 48.0 % 06/11/2025 1:42 PM CDT [facility] MCV 86.8 81.0 - 99.0 FL 06/11/2025 1:42 PM CDT [facility] MCH 30.1 27.0 - 31.0 PG 06/11/2025 1:42 PM CDT [facility] MCHC 34.7 32.0 - 36.0 G/DL 06/11/2025 1:42 PM CDT [facility] RDW 14.1 11.5 - 14.5 % 06/11/2025 1:42 PM CDT [facility] PLT 291 130 - 400 x10'3/uL 06/11/2025 1:42 PM CDT [facility] MPV 7.8(L) 9.3 - 12.2 FL 06/11/2025 1:42 PM CDT [facility] DIFFERENTIAL TYPE AUTOMATED DIFFERENTIAL 06/11/2025 1:42 PM CDT [facility] NEUTROPHILS % 66.3 % 06/11/2025 1:42 PM CDT [facility] LYMPHOCYTES % 22.6 % 06/11/2025 1:42 PM CDT [facility] MONOCYTES % 9.9 % 06/11/2025 1:42 PM CDT [facility] EOSINOPHILS 0.6 % 06/11/2025 1:42 PM CDT [facility] BASOPHILS 0.1 % 06/11/2025 1:42 PM CDT [facility] IMMATURE GRANS % 0.5 % 06/11/20 1:42 PM CDT [facility] ABS. NEUTROPHILS 7.26 1.80 - 7.70 x10'3/uL 06/11/2025 1:42 PM CDT [facility] ABS. LYMPHOCYTES 2.47 1.00 - 4.80 x10'3/uL 06/11/2025 1:42 PM CDT [facility] ABS. MONOCYTES 1.08(H) 0.24 - 0.86 x10'3/uL 06/11/2025 1:42 PM CDT [facility] ABS. EOSINOPHILS 0.07 0.04 - 0.36 x10'3/uL 06/11/2025 1:42 PM CDT [facility] ABS. BASOPHILS 0.01 0.01 - 0.08 x10'3/uL 06/11/2025 1:42 PM CDT [facility] ABS. IMMATURE GRANULOCYTES 0.06 0.00 - 0.49 x10'3/uL 06/11/2025 1:42 PM CDT [facility] 06/11/2025 1:10 PM CDT Elsy Cabral [facility] Final Resul t [facility] [address] [place] [address], [place] [phone] * TROPONIN, QUANT (06/11/2025 1:10 PM CDT) TROPONIN I HIGH SENSITIVITY 12 <54 ng/L 06/11/2025 2:36 PM CDT [facility] Comment: HIGH DOSES OF BIOTIN, TROPONIN-SPECIFIC AUTOANTIBODIES, AND ANTIBODY THERAPY CONTAINING HAMA MAY INTERFERE WITH THIS TEST RESULT. CORRELATION TO CLINICAL HISTORY AND PRESENTATION RECOMMENDED. 06/11/2025 1:10 PM CDT Elsy Cabral [facility] Final Resul t [facility] [address] [place] [address], [place] [phone] from Last 3 Months Insurance [employer] MEDICARE Care Teams Tire Mold Engraver Relationship Specialty Start Date End Date Keily Ramesh MD [address] [facility] [address] [place] [address] PCP - General 11/22/13
--- OUTSIDE RECORDS SUMMARY | 2025-08-31 10:32 | XMS_ITS | Encounter Summary ---
Author Organization 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
--- OUTSIDE RECORDS SUMMARY | 2025-08-31 10:32 | XMS_ITS | Encounter Summary ---
Author Organization [facility] Healthcare Address [address] [place] [address] Care Team Providers Care Knife Operator Name Role Phone Talya Andino NP Primary Care Provider [phone] Encounter Details Date Type Department Care Team (Late st Contact Info) Description 05/25/2025 Orders Only [facility] Health Information Management [address] [place] [address] Scanning, Provider Social History Tobacco Use Types Packs/Day Years [...] on file Legal Sex Female 7:51 PM [employer] Gender Identity Not on file Sexual Orientation Not on file documented as of this encounter Plan of Treatment Not on file documented as of this encounter Procedures Procedure Name Priority Date/Time Associated Diagnosis Comments SCAN - RADIOLOGY/IMAGING 05/25/2025 documented in this encounter Results * SCAN - RADIOLOGY/IMAGING (05/25/2025) Anatomical Region Laterality Modality Other us Provider Scanning Edited Result - Final documented in this encounter Visit Diagnoses Not on filedocumented in this encounter Care Teams Knife Operator Relationship Specialty Start Date End Date Talya Andino, NURSING HOME ADMISSIONS DIRECTOR [address] [facility] [address] [place] [address] PCP - General Internal Medicine 03/27/24 documented as of this encounter
--- OUTSIDE RECORDS SUMMARY | 2025-08-31 10:33 | XMS_ITS | Data Portability ---
Author Organization [place] [facility], Main Office Address [address] [place] [address] Care Team Providers Care Assistant News Director Name Role Phone TRISTAN ABRAHAM Primary Care Provider TRISTAN ABRAHAM Referring Provider [phone] Assessment Encounter Date Assessment Date Assessment LastModified by Organization Details LastModified Time 10/09/2023 10/09/2023 I have reconciled the patient's medications post their discharge from inpatient facility. [email or web address] Not available 10/09/2023 11:21:57 Plan of Treatment Reminders Order Date Submit Date Provider Last Modified By Organization Details Last Modified Time Details Appointments None recorded. Lab BMP, serum or plasma 2023 024 [employer] [facility], [address] [place], [address], 4 20:13:02 BMP, serum or plasma 2023 024 [facility], [address] [facility], [place], [address], 4 04:06:48 BMP, serum or plasma 2022 023 [facility], [address] [place], [address], 3 11:11:04 Referral [facility] referral - PT/OT eval and treat Please call patient to schedule appointment . 2022 023 [email or web address] [facility], [address] [place] [address], [address], 4 10:55:[address] referral - Please call patient to schedule appointment . 2022 023 [email or web address] Clinton Whittington MD, [address] [place], [address], 4 10:55:46 Procedures None recorded. Surgeries None recorded. Imaging XR, foot, 3 or more view 2022 023 [email or web address] [facility] Michelle Goss, [address], [place], [address], 3 14:56:47 Medication Orders amlodipine 2.5 mg tablet 2023 024 [facility] #[id number], [address] [place] [address], [id number], 4 09:29:00 amlodipine 5 mg tablet 2023 024 [facility], [address] [place] [address], [id number], 4 09:28:59 potassium chloride ER 10 mEq tablet,exte nded release 2023 024 [facility], [address] [place] [address], [id number], 4 09:28:58 albuterol sulfate HFA 90 mcg/actuati on aerosol inhaler 2023 024 [facility], [address] [place] [address], [id number], 4 09:29:04 gabapentin 300 mg capsule 2023 024 [facility] #07281, [address] [place] [address], [id number], 4 09:28:59 ipratropium 0.5 mg-albutero l 3 mg (2.5 mg base)/3 mL nebulizatio n soln 2023 024 [facility] #71490, [address] [place] [address], [id number], 4 09:27:17 cyclobenzap rine 5 mg tablet 2022 023 [facility] #31550, [address] [facility] [address] [place] [address], [id number], 3 11:46:21 levofloxaci n 750 mg tablet 2022 023 [email or web address] [facility] #28892, [address] [facility] [address] [place] [address], [id number], 3 11:37:31 Patient TargetsNo targets recorded. Patient Instructions Encounter Date Encounter Id Patient Instructions Last Modified By Organization Details Last Modified Time 10/09/2023 [id number] Thank you for your visit to our [...] at home, please call us to discuss. [email or web address] Not available 10/09/2023 11:21:57 Homebound Status : Required Home Health Services: Durable Medical Equipment needed: Billing Guidelines CPT code 98786- Transitional Care Management services with moderate medical decision complexity (rcmp-yr-uvtf visit within 14 days of discharge). CPT code 72387- Transitional Care Management services with high medical decision complexity (anao-[id number]-mtqp visit within 7 days of discharge). [email or web address] Not available 10/09/2023 11:21:57 Reason for Referral Home Health Referral for Lef t side sciatica PT/OT eval and treat Please call patient to schedule appointment. Referring Physician: Tristan Abraham, [facility], Encounter Date: 10/09/2023 [address] [facility] Referral for C hronic obstructive pulmonary disease Please call patient to schedule appointment. Referring Physician: Tristan Abraham, [facility], Encounter Date: 10/09/2023 Results Created Date Observation Date Name Description Value Unit Range Abnormal Flag Note LastModifiedBy Organization Detail LastModifiedTime 10/08/2010/09/2023 BASIC METAB OLIC PANEL glucose 87 mg/dL 65-99 normal Fasti ng refer ence inter jose roberto Not Available [facility] [address], [address], 10/09/2023 06:08:27 10/08/20 23 10/09/2023 BASIC METAB OLIC PANEL urea nitrogen (BUN) 10 mg/dL 7-25 normal Not Available [facility] [address] [address] [place], [address], 10/09/2023 06:08:27 10/08/20 23 10/09/2023 BASIC METAB OLIC PANEL creatinine 0.82 mg/dL 0.60-1 .00 normal Not Available [facility] [address], [address], 10/09/2023 06:08:27 10/08/20 23 10/09/2023 BASIC METAB OLIC PANEL eGFR 74 mL/mi n/1.7 3m2 > or = 60 normal Not Available [facility] [address], [address], 10/09/2023 06:08:27 10/08/20 23 10/09/2023 BASIC METAB OLIC PANEL BUN/creatini ne ratio SEE NOTE: (calc ) 6-22 Not Repor lory: BUN and Creat inine are withi n refer ence range . Not Available [address], [address], 10/09/2023 06:08:27 10/08/20 23 10/09/2023 BASIC METAB OLIC PANEL sodium 134 mmol/ L 135-14 6 low Not Available [address], [address], 10/09/2023 06:08:27 10/08/20 23 10/09/2023 BASIC METAB OLIC PANEL potassium 3.8 mmol/ L 3.5-5. 3 normal Not Available [address], [address], 10/09/2023 06:08:27 10/08/20 23 10/09/2023 BASIC METAB OLIC PANEL chloride 99 mmol/ L 98-110 normal Not Available [address], [address], 10/09/2023 06:08:27 10/08/20 23 10/09/2023 BASIC METAB OLIC PANEL carbon dioxide 24 mmol/ L 20-32 normal Not Available [address], [address], 10/09/2023 06:08:27 10/08/20 23 10/09/2023 BASIC METAB OLIC PANEL calcium 9.2 mg/dL 8.6-10 .4 normal Not Available [address], [address], 10/09/2023 06:08:27 10/20/20 23 10/21/2023 BASIC METAB OLIC PANEL glucose 73 mg/dL 65-99 normal Fasti ng refer ence inter jose roberto Not Available [address], [address], 10/22/2023 11:11:04 10/20/20 23 10/21/2023 BASIC METAB OLIC PANEL urea nitrogen (BUN) 9 mg/dL 7-25 normal Not Available [address] [address] [place], [address], 10/22/2023 11:11:04 10/20/20 23 10/21/2023 BASIC METAB OLIC PANEL creatinine 0.64 mg/dL 0.60-1 .00 normal Not Available [facility] [address] [address] [place], [address], 10/22/2023 11:11:04 10/20/20 23 10/21/2023 BASIC METAB OLIC PANEL eGFR 91 mL/mi n/1.7 3m2 > or = 60 normal Not Available [facility] [address] [address] [place], [address], 10/22/2023 11:11:04 10/20/20 23 10/21/2023 BASIC METAB OLIC PANEL BUN/creatini ne ratio SEE NOTE: (calc ) 6-22 Not Repor lory: BUN and Creat inine are withi n refer ence range . Not Available [address] [address] [place], [address], 10/22/2023 11:11:04 10/20/20 23 10/21/2023 BASIC METAB OLIC PANEL sodium 137 mmol/ L 135-14 6 normal Not Available [facility] [address] [address] [place], [address], 10/22/2023 11:11:04 10/20/20 23 10/21/2023 BASIC METAB OLIC PANEL potassium 4.1 mmol/ L 3.5-5. 3 normal Not Available [facility] [address] [address] [place], [address], 10/22/2023 11:11:04 10/20/20 23 10/21/2023 BASIC METAB OLIC PANEL chloride 102 mmol/ L 98-110 normal Not Available [facility] [address] [address] [place], [address], 10/22/2023 11:11:04 10/20/20 23 10/21/2023 BASIC METAB OLIC PANEL carbon dioxide 27 mmol/ L 20-32 normal Not Available [address], [address], 10/22/2023 11:11:04 10/20/20 23 10/21/2023 BASIC METAB OLIC PANEL calcium 9.3 mg/dL 8.6-10 .4 normal Not Available [address], [address], 10/22/2023 11:11:04 12/05/19 24 12/06/2023 BASIC METAB OLIC PANEL glucose 95 mg/dL 65-99 normal Fasti ng refer ence inter jose roberto Not Available [address], [address], 12/06/2023 04:06:47 12/05/19 24 12/06/2023 BASIC METAB OLIC PANEL urea nitrogen (BUN) 13 mg/dL 7-25 normal Not Available [address], [address], 12/06/2023 04:06:47 12/05/19 24 12/06/2023 BASIC METAB OLIC PANEL creatinine 0.76 mg/dL 0.60-1 .00 normal Not Available [address], [address], 12/06/2023 04:06:47 12/05/19 24 12/06/2023 BASIC METAB OLIC PANEL eGFR 81 mL/mi n/1.7 3m2 > or = 60 normal Not Available [address], [address], 12/06/2023 04:06:47 12/05/19 24 12/06/2023 BASIC METAB OLIC PANEL BUN/creatini ne ratio SEE NOTE: (calc ) 6-22 Not Repor lory: BUN and Creat inine are withi n refer ence range . Not Available [address], [address], 12/06/2023 04:06:47 12/05/19 24 12/06/2023 BASIC METAB OLIC PANEL sodium 134 mmol/ L 135-14 6 low Not Available [address], [address], 12/06/2023 04:06:47 12/05/19 24 12/06/2023 BASIC METAB OLIC PANEL potassium 4.0 mmol/ L 3.5-5. 3 normal Not Available [address], [address], 12/06/2023 04:06:47 12/05/19 24 12/06/2023 BASIC METAB OLIC PANEL chloride 101 mmol/ L 98-110 normal Not Available [address], [address], 12/06/2023 04:06:47 12/05/19 24 12/06/2023 BASIC METAB OLIC PANEL carbon dioxide 27 mmol/ L 20-32 normal Not Available [address], [address], 12/06/2023 04:06:47 12/05/19 24 12/06/2023 BASIC METAB OLIC PANEL calcium 9.3 mg/dL 8.6-10 .4 normal Not Available [address], [address], 12/06/2023 04:06:47 12/21/19 24 12/22/2023 BASIC METAB OLIC PANEL glucose 96 mg/dL 65-139 normal Non-f astin g refer ence inter jose roberto Not Available [address], [address], 12/22/2023 05:49:47 12/21/19 24 12/22/2023 BASIC METAB OLIC PANEL urea nitrogen (BUN) 11 mg/dL 7-25 normal Not Available [address] [address] [place], [address], 12/22/2023 05:49:47 12/21/19 24 12/22/2023 BASIC METAB OLIC PANEL creatinine 0.66 mg/dL 0.60-1 .00 normal Not Available [facility] [address] [address] [place], [address], 12/22/2023 05:49:47 12/21/19 24 12/22/2023 BASIC METAB OLIC PANEL eGFR 90 mL/mi n/1.7 3m2 > or = 60 normal Not Available [facility] [place] [address] [place], [address], 12/22/2023 05:49:47 12/21/19 24 12/22/2023 BASIC METAB OLIC PANEL BUN/creatini ne ratio SEE NOTE: (calc ) 6-22 Not Repor lory: BUN and Creat inine are withi n refer ence range . Not Available [facility] [address] [address] [place], [address], 12/22/2023 05:49:47 12/21/19 24 12/22/2023 BASIC METAB OLIC PANEL sodium 134 mmol/ L 135-14 6 low Not Available [facility] [address] [address] [place], [address], 12/22/2023 05:49:47 12/21/19 24 12/22/2023 BASIC METAB OLIC PANEL potassium 4.0 mmol/ L 3.5-5. 3 normal Not Available [facility] [address] [address] [place], [address], 12/22/2023 05:49:47 12/21/19 24 12/22/2023 BASIC METAB OLIC PANEL chloride 100 mmol/ L 98-110 normal Not Available [facility] [address] [address] [place], [address], 12/22/2023 05:49:47 12/21/19 24 12/22/2023 BASIC METAB OLIC PANEL carbon dioxide 28 mmol/ L 20-32 normal Not Available [address], [address], 12/22/2023 05:49:47 12/21/19 24 12/22/2023 BASIC METAB OLIC PANEL calcium 9.0 mg/dL 8.6-10 .4 normal Not Available [address], [address], 12/22/2023 05:49:47 03/03/20 24 03/04/2024 BASIC METAB OLIC PANEL glucose 128 mg/dL 65-139 normal Non-f astin g refer ence inter jose roberto Not Available [address], [address], 03/04/2024 20:13:02 03/03/20 24 03/04/2024 BASIC METAB OLIC PANEL urea nitrogen (BUN) 11 mg/dL 7-25 normal Not Available [address], [address], 03/04/2024 20:13:02 03/03/20 24 03/04/2024 BASIC METAB OLIC PANEL creatinine 0.64 mg/dL 0.60-1 .00 normal Not Available [address], [address], 03/04/2024 20:13:02 03/03/20 24 03/04/2024 BASIC METAB OLIC PANEL eGFR 90 mL/mi n/1.7 3m2 > or = 60 normal Not Available [address], [address], 03/04/2024 20:13:02 03/03/20 24 03/04/2024 BASIC METAB OLIC PANEL BUN/creatini ne ratio SEE NOTE: (calc ) 6-22 Not Repor lory: BUN and Creat inine are withi n refer ence range . Not Available [address], [address], 03/04/2024 20:13:02 03/03/20 24 03/04/2024 BASIC METAB OLIC PANEL sodium 136 mmol/ L 135-14 6 normal Not Available [address], [address], 03/04/2024 20:13:02 03/03/20 24 03/04/2024 BASIC METAB OLIC PANEL potassium 3.8 mmol/ L 3.5-5. 3 normal Not Available [address], [address], 03/04/2024 20:13:02 03/03/20 24 03/04/2024 BASIC METAB OLIC PANEL chloride 101 mmol/ L 98-110 normal Not Available [address], [address], 03/04/2024 20:13:02 03/03/20 24 03/04/2024 BASIC METAB OLIC PANEL carbon dioxide 28 mmol/ L 20-32 normal Not Available [address], [address], 03/04/2024 20:13:02 03/03/20 24 03/04/2024 BASIC METAB OLIC PANEL calcium 9.2 mg/dL 8.6-10 .4 normal Not Available [address], [address], 03/04/2024 20:13:02 09/04/20 23 XR, foot, 3 or more view No observ ation record ed. [email or web address] [facility] Michelle Goss [address], [place], [address], 09/04/2023 08:55:58 09/23/20 23 09/23/2023 XR, chest No observ ation record ed. [email or web address] [address], [place], [address], 09/24/2023 12:42:44 09/25/2009/25/2023 XR, chest No observ ation record ed. [email or web address] [address], [place], [address], 10/04/2023 13:13:11 09/26/20 23 09/26/2023 MRI, lumba r spine , w/o contr ast No observ ation record ed. [email or web address] [address], [place], [address], 10/04/2023 13:14:03 09/26/2009/26/2023 MRI, chest + abdom en + pelvi s, w/o contr ast No observ ation record ed. [email or web address] [address], [place], [address], 10/04/2023 13:16:36 10/01/20 XR, foot, 3 or more view No observ ation record ed. [email or web address] [facility] [place] [address] [facility] [address] [place], [address], 10/01/2023 11:39:00 10/29/20 XR, foot, 3 or more view No observ ation record ed. [email or web address] [facility] [place] [address] [facility] [address], [place], [address], 10/29/2023 14:56:45 Result Notes None recorded. Problems Name Problem SNOMED Code Status Onset Date Resolution Date Notes Provider Name and Address Organization Details Recorded Time Chronic obstructiv e pulmonary disease 38891380 Active 2021 Not Available [facility] 3 11:28:11 Pain of left wrist 0578838079702 02 Active 2021 Not Available [facility] 3 11:28:12 Closed fracture of distal end of radius 30002570 Active 2021 Not Available [facility] 3 11:28:11 Pneumonia 991870304 Active 2021 [facility] Available [facility] 3 11:28:11 Abnormal findings on diagnostic imaging of lung 506996844 Active 2021 Not Available [facility] 3 11:28:11 Dyspnea on exertion 18187883 Active 2021 Not Available [facility] 3 11:28:12 Chronic cough 35234285 Active 2021 Not Available [facility] 3 11:28:12 Pulmonary emphysema 74509739 Active 2021 [facility] Available [facility] 3 11:28:12 Dyspnea 757474441 Active 2022 Not Available [facility] 3 11:28:11 Atrophic vaginitis 31754800 Active 2022 Not Available [facility] 3 11:28:12 Loss of hair 971718540 Active 2022 Not Available [facility] 3 11:28:12 Atheroscle rosis of aorta 35746516 Active 2022 Not Available [facility] 3 11:28:12 Renal impairment 414939313 Active 2022 Not Available [facility] 3 11:28:11 Severe chronic obstructiv e pulmonary disease 389220813 Active 2022 Not Available [facility] 3 11:28:12 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 Not Available [facility] 3 11:28:12 Multiple nodules of lung 745209532 Active 2022 Not Available [facility] 3 11:28:12 Elevated blood-pres sure reading without diagnosis of hypertensi on 037559883 Active 2022 Not Available [facility] 3 11:28:12 Essential hypertensi on 87874324 Active 2022 Not Available [facility] 3 11:28:12 Tremor 45019007 Active 2022 Not Available [facility] 3 11:28:11 Hyperchole sterolemia 14917848 Active 2022 Not Available [facility] 3 11:28:11 Hyponatrem ia 58098313 Active 2022 Not Available [facility] 3 11:28:12 Pain in right foot 3519873417630 07 Active 2022 Not Available [facility] 3 11:28:12 Closed fracture of fifth metatarsal bone 80917024 Active 2022 Not Available [facility] 3 11:28:12 Arthritis 4645639 Active 2022 Not Available [facility] 3 11:28:12 Disorder of lung 91530851 Active 2022 Not Available [facility] 3 11:28:11 Closed fracture of fifth metatarsal bone of right foot 8363709776996 9109 Active 2022 Not Available [facility] 3 11:28:11 Low back pain 866501183 Active 2022 Not Available [facility] 3 11:28:12 Neuropathy 961765668 Active 2022 Not Available [facility] 3 11:28:12 Acute exacerbati on of chronic obstructiv e pulmonary disease 724190258 Active 2022 Not Available [facility] 3 11:28:11 Left side sciatica 2541654939686 04 Active 2022 Not Available [facility] 3 11:28:12 Heartburn 97353095 Active 2022 Not Available [facility] 3 11:28:11 Nausea 688568990 Active 2023 Tristan Abraham MD [address], [place] [address], [place], [address] , [facility] [employer] [facility] 4 14:12:01 Weight loss 31587192 Active 2023 Tristan Abraham MD [address], [facility] [address], [place], [address] , [place] [facility] [employer] [facility] 4 09:23:59 Problem Notes None recorded. Procedures Surgical History Date Name Laterality Status Provider Name and Address Organization Details Recorded Time 10/09/20 Transitional_Care _Management completed Luis Hamm RN [facility] [employer] [facility] 10/09/2023 11:21:57 Tonsillectomy completed Not Available formerly [facility] 01/17/2023 10:41:35 Gallbladder Surgery completed Not Available [facility] 01/17/2023 10:41:35 Hysterectomy completed Not Available Pending sale to [facility] 01/17/2023 10:41:35 Imaging Results None recorded. Procedure Notes None recorded. Medical Equipment None Reported. Allergies Allergen ID Allergen Name Allergen Category Reaction Reaction Severity Criticality Documentation Date Start Date Code Code System Note Provider Name and Address Organization Details Recorded Time Product containin g penicilli n (product) medicatio n hives Not available Not available 01/17/2023 31276 8001 SNOMED Not Available [facility] 10:47:34 Medications Name Sig Start Date Stop [...] Updated DateTime 4 157.48 cm 22.5 kg/m2 94290.8 6 g 97.7 [degF] 77 /min 94 % 94 % 162/70 mm[Hg] Luis Hamm RN [facility] [employer] [facility] 4 09:10:18 Date Recorded Body height Body mass index (BMI) Body weight Body temperature Oxygen saturation Oxygen saturation in Arterial blood by Pulse oximetry Heart rate Systolic And Diastolic Provider Name and Address Organization Details Last Updated DateTime 4 157.48 cm 21.2 kg/m2 07403.7 1 g 97.9 [degF] 92 % 92 % 69 /min 142/80 mm[Hg] Luis Hamm RN [facility] [employer] [facility] 4 09:07:12 Date Recorded Body height Body temperature Provider N bev and Address Organization Details Last Updated DateTime 10/03/2023 157.48 cm 97.8 [degF] Kate Anthony MA [facility] [employer] [facility] 10/03/2023 11:16:39 Date Recorded Heart rate Oxygen saturation Oxygen saturation in Arterial blood by Pulse oximetry Systolic And Diastolic Provider Name and Address Organization Details Last Updated DateTime 10/03/2023 91 /min 95 % 95 % 122/70 mm[Hg] Elsa Mcclure MA [facility] [employer] [facility] 3 11:25:13 Date Recorded Body height Body mass index (BMI) Body weight Body temperature Heart rate Oxygen saturation Oxygen saturation in Arterial blood by Pulse oximetry Systolic And Diastolic Provider Name and Address Organization Details Last Updated DateTime 3 157.48 cm 22.5 kg/m2 60402.8 6 g 97.6 [degF] 108 /min 93 % 93 % 124/64 mm[Hg] Luis Hamm RN [facility] [employer] [facility] 3 11:25:07 Date Recorded Body height Body mass index (BMI) Body weight Heart rate Respiratory rate Oxygen saturation Oxygen saturation in Arterial blood by Pulse oximetry Systolic And Diastolic Provider Name and Address Organization Details Last Updated DateTime 3 157.48 cm 22.5 kg/m2 70552.8 6 g 82 /min 14 /min 97 % 97 % 162/87 mm[Hg] Nury Woodward [facility] 14:06:23 Social History Question Answer Notes LastModified by [employer] Details LastModified Time Tobacco Smoking Status Former Smoker Nisa Wang rk [facility] 10/29/2023 14:01:32 What Is Your Level Of Caffeine Consumption? Moderate [id number] Information not available 01/17/2023 In The 14 [...] Type Of Diet Are You Following? REGULAR [id number] Information not available 01/17/2023 What Is Your Current Pack Years? 10packyears Information not available 10/29/2023 Have You Ever Been Counseled For Unhealthy Alcohol Use? No Information not available 10/29/2023 Has Tobacco Cessation Counseling Been Provided? No Information not available 10/29/2023 Do You Have Any Dietary Restrictions? No Information not available 10/29/2023 Sex: Unknown Functional Status Question Answer Note LastModified by [employer] Details LastModified Time Do you use any illicit or recreational drugs? No Information not available 10/29/2023 Do you or have you ever used any other forms of tobacco or nicotine? No Information not available 10/29/2023 What is your level of alcohol consumption? None once a year [email or web address] Information not available 09/03/2023 What is your exercise level? None [id number] Information not available 01/17/2023 Mental Status None recorded. Family History Relationship Description Onset Age of this Age Resolved Age Notes LastModified by Organization Details LastModified Time Father Arthritis Not availab le 10/29/2023 14:01:30 Father Hypertensive disorder [email or web address] Not available 2022 17:44:49 Mother Arthritis Not availab le 10/29/2023 14:01:30 Mother Hypertensive disorder [email or web address] Not available 2022 17:44:49 Medical History Condition Response ARTHRITIS Y PULMONARY DISEASE Y BACK / NECK PROBLEMS Y Gynecological History Statement/Question Response Abnormal Pap [...] Fung APRN [address], [address], [place], [address], [employer] 07/29/2024 11:15:38 influenza, unspecified formulation 3 completed Esme Fung APRN [address], [address], [place], [address], [employer] 07/29/2024 11:15:38 Influenza, high-dose, quadrivalent, PF 2 completed Esme Fung APRN [address], [address], [place], [address], [employer] [facility] 07/29/2024 11:15:38 Influenza, adjuvanted, quadrivalent, PF 0 completed Esme Fung APRN [address], [address], [place], [address], [employer] 07/29/2024 11:15:38 Influenza, adjuvanted, quadrivalent, PF 3 completed Esme Fung APRN [address], [address], [place], [address], [employer] 07/29/2024 11:15:54 COVID-19, mRNA, LNP-S, PF, 30 mcg/0.3 mL dose 1 completed Esme Fung APRN [address], [address], [place], [address], [facility] 07/29/2024 11:15:38 COVID-19, mRNA, LNP-S, PF, 30 mcg/0.3 mL dose 1 completed Esme Fung APRN [address], [address], [place], [address], [facility] 07/29/2024 11:15:38 COVID-19, mRNA, LNP-S, PF, 30 mcg/0.3 mL dose 1 completed Esme Fung APRN [address], [address], [place], [address], [facility] 07/29/2024 11:15:38 COVID-19, mRNA, LNP-S, PF, 30 mcg/0.3 mL dose, toan-sucrose 2 completed Esme Fung APRN [address], [address], [place], [address], [facility] 07/29/2024 11:15:38 COVID-19, mRNA, LNP-S, bivalent, PF, 30 mcg/0.3 mL dose 2 completed Esme Fung APRN [address], [address], [place], [address], [facility] 07/29/2024 11:15:38 RSV, recombinant, protein subunit RSVpreF, adjuvant reconstituted, 0.5 mL, PF 3 completed Esme Fung APRN [address], [address], [place], [address], [facility] 07/29/2024 11:15:38 COVID-19, mRNA, LNP-S, PF, 50 mcg/0.5 mL 3 completed Esme Fung APRN [address], [address], [place], [address], [facility] [employer] [facility] 07/29/2024 11:15:38 pneumococcal polysaccharide PPV23 3 completed Esme Fung APRN [address], [facility] [address], [place], [address], [facility] [employer] [facility] 07/29/2024 11:15:38 pneumococcal polysaccharide PPV23 7 completed Esme Fung APRN [address], [facility] [address], [place], [address], [facility] [employer] [facility] 07/29/2024 11:15:38 pneumococcal polysaccharide PPV23 7 completed Esme Fung APRN [address], [facility] [address], [place], [address], [facility] [employer] [facility] 07/29/2024 11:15:38 Tdap 7 completed Esme Fung APRN [address], [place] [address], [place], [address], [facility] [employer] [facility] 07/29/2024 11:15:38 Influenza, high-dose, trivalent, PF 9 completed Esme Fung APRN [address], [facility] [address], [place], [address], [facility] [employer] [facility] 07/29/2024 11:15:38 Pneumococcal conjugate PCV 13 5 completed Not Available [facility] 01/17/2023 10:47:29 pneumococcal polysaccharide PPV23 0 completed Not Available Critical access hospital 01/17/2023 10:47:29 Influenza, high-dose, quadrivalent, PF 1 completed Not Available Critical access hospital 01/17/2023 10:47:29 Past Encounters Encounter ID Performer Location Encounter Start Date Encounter Closed Date Diagnosis/Indication Diagnosis SNOMED-CT Code Diagnosis ICD10 Code Diagnosis IMO Codes Diagnosis Note [id number] Tristan Abraham MD [facility] [address] [address] 06/15/2021 00:00:00 06/15/2021 10:47:09 [id number] Tristan Abraham MD [facility] Primary Care [place] [address] [place] [address] 08/24/2021 00:00:00 08/24/2021 13:53:35 [id number] Tristan Abrahma MD [facility] [place] [address] [place] [address] 12/13/2021 00:00:00 12/13/2021 18:13:07 [id number] Tristan Abraham MD [facility] [place] [address] [place] [address] 12/15/2021 00:00:00 12/15/2021 14:12:54 [id number] Tristan Abraham MD [facility] [place] [address] [place] [address] 12/16/2021 00:00:00 12/16/2021 17:31:10 [id number] MIGUELITO Archer [facility] Primary Care [place] [address] [place] [address] 12/19/2021 00:00:00 12/19/2021 10:59:08 [id number] MIGUELITO Archer [facility] [place] [address] [place] [address] 08/04/2022 00:00:00 08/04/2022 11:10:25 [id number] Drew Johns MD [facility] [place] [address] [facility] [address] [place] [address] 08/14/2022 00:00:00 08/14/2022 18:14:53 [id number] Tristan Abraham MD [facility] [place] [address] [place] [address] 08/14/2022 00:00:00 08/14/2022 20:58:25 [id number] MIGUELITO Archer [facility] Primary Care [place] [address] [place] [address] 09/13/2022 00:00:00 09/13/2022 12:29:27 [id number] Drew Johns MD [facility] [place] [address] [facility] [address] [place] [address] 09/18/2022 00:00:00 09/18/2022 17:24:08 [id number] MIGUELITO Archer [facility] Primary Care [facility] [address] [employer] [facility] [address] [place] [address] 10/23/2022 00:00:00 10/23/2022 10:13:31 [id number] Lore Padilla [facility] Pulmonolo [facility] [place] [address] [place] [address] 11/08/2022 00:00:00 11/08/2022 11:23:14 [id number] Tristan Abraham MD [facility] Primary Care [facility] [address] [facility] [address] [place] [address] 11/22/2022 00:00:00 11/22/2022 13:28:08 [id number] Tristan Abraham MD [facility] [address] [facility] [address] [place] [address] 12/06/2022 00:00:00 12/06/2022 20:11:00 [id number] ELSA Concepcion [facility] Primary Care [address] [place] [address] 01/18/2023 14:52:26 01/18/2023 15:49:04 Dyspnea 597158490 R06.00 R05.9 New complaintM ay be sx of copd exacerbati on, but respirator y exam essentiall y normal in office today; however, pt currently on topical HRT tx for atrophic vaginitis. Will send for xray to r/o PE in light of new sx. Chronic ob structive pulmonary disease 73600332 J44.9 Chronic, stableDisc ussed progressiv e nature of COPD at length. Encouraged proper breathing techniques . Advised compliance with supplement al O2, nebulizer and inhaled medication s as directed. Encouraged patient to avoid cigarette smoke, allergens, and environmen bob pollutants .Continue with albuterol nebs for routine use. Also given duo neb for use during exacerbati ons. Atrophic vaginitis 23815 000 N95.2 Improved with Premarin creamAdvis ed to decreased frequency of use since bp has been elevated as HRT has been known to increase BP and increase risk of dvt. Loss of hair 399222810 L 65.9 New problemNo visible bald areas. Advised hair loss is likely normal shedding. Will continue to monitor and consider derm referral if persistent /worsening . [id number] ELSA Concepcion [facility] Primary Care [facility] [address] [facility] [address] [place] [address] 02/02/2023 16:25:59 02/02/2023 17:24:31 Dyspnea 341414570 R06.00 R05.9 New complaintC XR (01/23/23) neg for PE, but consistent with known copd.Sx likely d/t copd exacerbati on, especially when coupled with PFT (01/29/23) findings of moderately severe obstructiv e abnormalit y with air-trappi ng. Chronic ob structive pulmonary disease 83431167 J44.9 Chronic, stableDisc ussed progressiv e nature of COPD at length. Encouraged proper breathing techniques . Advised compliance with supplement al O2, nebulizer and inhaled medication s as directed. Encouraged patient to avoid cigarette smoke, allergens, and environmen bob pollutants .Continue with albuterol nebs for routine use. Also given duo neb for use during exacerbati ons. Atrophic vaginitis 74183 000 N95.2 Improved with Premarin creamAdvis ed to decreased frequency of use since bp has been elevated as HRT has been known to increase BP and increase risk of dvt. Loss of hair 217327951 L 65.9 No changeNo visible bald areas. Advised hair loss is likely normal shedding. Will continue to monitor and consider derm referral if persistent /worsening . Atheroscle rosis of aorta 32557995 I70.0 New finding on cxr.Recomm end referral to cardiology for further evaluation /tx. Pt declines at this time. Renal impairment 7952880 03 N28.9 Unknown statusWill generate new referral per patient request. 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 9 With hypoxia and hospitaliz ation 2Rep eat CT scheduled for 03/12/23 Abnormal f indings on diagnostic imaging of lung 554233874 R91.8 CTA inpatient with area to left lung apex - 6mm, likely scarring but appearance is somewhat nodular per dictation History of SARS-CoV-2 29 65720833 56481140 Z86.16 Diagnosis 02/2022 Ex-smoker 9756423 Z87.89 1 Quit 2CT as above [id number] ELSA Concepcion [facility] [place] [address] [facility] [address] [facility] [place] [address] 03/02/2023 10:52:04 03/02/2023 12:08:53 Chronic obstructive pulmonary disease 16141184 J44.9 Chronic, stableDisc ussed progressiv e nature of COPD at length. Encouraged proper breathing techniques . Advised compliance with supplement al O2, nebulizer and inhaled medication s as directed. Encouraged patient to avoid cigarette smoke, allergens, and environmen bob pollutants . Reviewed pulmonary note from Jesus Padilla NP (02/09/23): severe chronic obstructiv e lung disease. PFT completed 01/2023 with ratio 45 and FEV1 37MZJ629, FRC 175, RV 186DLCO 72% correctedC hange inhaled medication to Trelegy Ellipta 100 - one puff dailyInstr ucted on techniqueS he is aware to rinse and spit after useAlso aware to DC WixelaCont inue albuterol PRNStart Trelegy Ellipta 100 mcg-62.5 mcg-25 mcg powder for inhalation 1 puff every day as directed for 30 days Atrophic vaginitis 83746 000 N95.2 Improved with Premarin creamAdvis ed to decreased frequency of use since bp has been elevated as HRT has been known to increase BP and increase risk of dvt. Renal impairment 2919240 03 N28.9 Unknown statusRefe rral generated last visit. Referral reprinted for pt to schedule.W ill check bmp pending renal appt. Atheroscle rosis of aorta 98897165 I70.0 New finding on cxr (01/23/23)Re commend referral to cardiology for further evaluation /tx. Pt declines at this time. Elevated blood-pressure reading without diagnosis of hypertension 817513542 R03.0 RecurrentP t reports bps are normal at home.Asymp tomatic at this timeWill monitor closely and consider meds if appropriat e in the future.Pt to bring home cuff to next office visit.Disc ussed s/s that warrant emergency evaluation in the meantime. [id number] Lore Padilla, [address] [employer] [facility] [employer]-[facility] Pulmonolo gy [place] [address] [place] [address] 03/27/2023 09:52:37 03/27/2023 10:48:51 Severe chronic obstructive pulmonary disease 681778540 J44.9 PFT completed 01/2023 with ratio 45 and FEV1 86WKP660, FRC 175, RV 186DLCO 72% correctedC ontinue WixelaStar t Spiriva Respimat 2.5 two puffs dailySampl es to patientIns tructed on techniqueS he is aware to rinse and spit after useAlso aware to DC WixelaCont inue albuterol PRN Immunoglob ulin deficiency 488406415 D80.9 IGGs low:immuno globulin g subclass 3 [...] negativeBN P normalRAST and IGE neormal Pneumonia 326532287 J18. 9 With hypoxia and hospitaliz ation ep eat CT completed 02/15/23 with no acute infection but some chronic scarring History of SARS-CoV-2 29 24915728 04441071 Z86.16 Diagnosis 02/2022We have discussed the uncertain recovery of COVID19.En couraged exercise as toleratedD iscussed S/S that require emergent evaluation Ex-smoker 0283280 Z87.89 1 Quit 2CT as above [id number] Tristan Abraham MD [facility] Primary Care [facility] [address] [facility] [facility] [address] [place] [address] 04/30/2023 17:06:18 04/30/2023 17:29:39 Essential hypertension 46774945 I10 not at baselinein crease amlodipine 7.5 mg dailycheck labsok to walk in home daily [id number] Lore Padilla, [facility] [place] [facility] [place] [address] [place] [address] 05/08/2023 10:49:35 05/08/2023 11:42:56 Severe chronic obstructive pulmonary disease 085843744 J44.9 PFT completed 01/2023 with ratio 45 and FEV1 01SFP275, FRC 175, RV 186DLCO 72% correctedC ontinue Wixela 250/50Star t ipratropiu m via nebulizer BIDShe has this at homeInstru cted on techniqueS he is aware of reportable side effectsShe is aware to rinse and spit after use of wixelaCont inue albuterol PRNPlans for [place] after stable on inhaled therapy Immunoglob ulin deficiency 224310068 D80.9 IGGs 11/2022 low:immuno globulin g subclass 3 = 7immunoglo bulin g subclass 1 = 366immunog lobulin g subclass 2 = 55immunogl obulin g, serum = 569She has seen immunology with repeat testing and labsContin ue to follow Dyspnea on exertion 6084 5006 R06.09 Eosinophil s, Alpha 1 and IGE normalCont inue activity, declines [place] at this timeInhale d therapy as aboveSix minute walk testing 01/2023 was normalQuan tiferon GOLD negativeBN P normalRAST normalCons ider echocardio gram after stable on inhaled therapy Pneumonia 409156341 J18. 9 With hypoxia and hospitaliz ation ep eat CT completed 02/15/23 with no acute infection but some chronic scarring History of SARS-CoV-2 29 84738989 55827011 Z86.16 Diagnosis 02/2022We have discussed the uncertain recovery of COVID19.En couraged exercise as toleratedD iscussed S/S that require emergent evaluation Ex-smoker 1314494 Z87.89 1 Quit 2CT as aboveRepea t CT chest due 01/2024 [id number] Tristan Abraham MD [facility] Primary Care [facility] [address] [facility] [facility] [address] [place] [address] 05/14/2023 17:00:15 05/14/2023 17:54:43 Tremor 00310235 R25.1 Has been noting bilateral hand tremors for the last couple weeks. Stopped taking sodium tablets months ago. Sodium now 136. Encouraged to trial sodium supplement again. F/u 2 months Essential hypertension 62384852 I10 doing well [id number] Lore Padilla, [address] [employer] [address] [employer]-[facility] Pulmonolo gy Michelle Goss [address] [place] [address] 06/27/2023 12:18:19 06/27/2023 14:49:04 Severe chronic obstructive pulmonary disease 816603942 J44.9 PFT completed 01/2023 with ratio 45 and FEV1 31HLH925, FRC 175, RV 186DLCO 72% correctedC ontinue Wixela 250/50Incr ease ipratropiu m via nebulizer to [facility]IDSkunal [facility] he is aware of reportable side effectsShe is aware to rinse and spit after use of wixelaCont inue albuterol PRNPlans for [place], she will consider Immunoglob ulin deficiency 727859064 D80.9 IGGs 11/2022 low:immuno globulin g subclass 3 = 7immunoglo bulin g subclass 1 = 366immunog lobulin g subclass 2 = 55immunogl obulin g, serum = 569She has seen immunology with repeat testing and labsContin ue to follow Dyspnea on exertion 6084 5006 R06.09 Eosinophil s, Alpha 1 and IGE normalCont inue activity, declines [place] at this timeInhale d therapy as aboveSix minute walk testing 01/2023 was normalQuan tiferon GOLD negativeBN P normalRAST normal History of SARS-CoV-2 29 44647864 46616117 Z86.16 Diagnosis 02/2022We have discussed the uncertain recovery of COVID19.En couraged exercise as toleratedD iscussed S/S that require emergent evaluation Ex-smoker 0920889 Z87.89 1 Quit T as aboveRepea t CT chest due 01/2024 [id number] Geronimo Bradley DPM [facility] [place] [address] [place] [address] 09/03/2023 16:04:44 09/04/2023 13:56:06 Closed fracture of fifth metatarsal bone of right foot 0094030328 6458237 S92.354A right 5th metatarsal x-rays reviewed with the patientrec ommend Cam boot and even up for the opposite leg to prevent lower back issuesmini mal weight-douglas ring to and from the bathroomri ce therapyfol [facility] for repeat x-rays [id number] Geronimo Bradley DPM [facility] [place] [address] [place] [address] 10/01/2023 11:14:02 10/01/2023 11:45:27 Closed fracture of fifth metatarsal bone of right foot 9194026591 0348693 S92.354A right 5th metatarsal x-rays reviewed with [...] issues with her backrice therapyfol low-up in [facility] 4 weeks for repeat x-rays [id number] Lore Padilla, [address] [employer] [address] [employer]-[facility] Pulmonolo gy Michelle Goss [address] [place] [address] 10/03/2023 11:15:36 10/03/2023 12:21:40 Acute exacerbation of chronic obstructive pulmonary disease 080522117 J44.1 No abx while hospitaliz ed or on DCCXR negative for infiltrate Start levaquin.D iscussed emergently reportable signs and symptoms Severe chr onic obstructive pulmonary disease 192600860 J44.9 PFT completed 01/2023 with ratio 45 and FEV1 10WKS354, FRC 175, RV 186DLCO 72% correctedC ontinue Wixela 250/50Ipra tropium via nebulizer QIDDC Spiriva (DC RX) previous reaction.C ombivent is the same as jomar, discussed with Ms Talley has this at homeInsu cted on techniqueS he is aware to rinse and spit after use of wixelaCont inue albuterol PRNAdvised vaccines this fallShe should follow up with pulmonolog y in 2-3 months Immunoglob ulin deficiency 136698099 D80.9 IGGs 11/2022 low:immuno globulin g subclass 3 = 7immunoglo bulin g subclass 1 = 366immunog lobulin g subclass 2 = 55immunogl obulin g, serum = 569She has seen immunology with repeat testing and labsContin ue to follow with them, need records Dyspnea on exertion 6084 5006 R06.09 Eosinophil s, Alpha 1 and IGE normalCont inue activity, declines [place] at this timeInhale d therapy as aboveSix minute walk testing 01/2023 was normalQuan tiferon GOLD negativeBN P normalRAST normal History of SARS-CoV-2 29 01238857 64686198 Z86.16 Diagnosis 02/2022We have discussed the uncertain recovery of COVID19.En couraged exercise as toleratedD iscussed S/S that require emergent evaluation Ex-smoker 5394744 Z87.89 1 Quit T 01/2023 with no nodule, mass, or enlarged lymph nodesRepea t CT chest due 01/2024 - she is aware [id number] Tristan Abraham MD [facility] Primary Care [facility] [address] [place] [address] 10/09/2023 11:18:07 10/09/2023 12:03:21 Transition of care 5339862567 105 Z75.8 Hyponatremia 19767580 E8 7.1 increase sodium chloride to 1000 mg bidrepeat bmp Left side sciatica 86566 43744 34529 M54.32 will resume chiropract ic [facility] pt/ot orderedcon tinue gabapentin 300 mg, pt aware of potential s/e including confusion, constipati oncycloben zaprine 5 mg 1/2 to 1 tab po tid prn, can cause confusion/ balance issuesf/u in 6 weeks, will refer to specialist if no improvemen t Chronic ob structive pulmonary disease 43684648 J44.9 Heartburn 55516646 R12 continue to sleep propped upfamotidi ne otc 20 mg qhs prn [id number] Geronimo Bradley DPM [facility] Podiatry [place]oss [address] [place] [address] 10/29/2023 14:00:25 10/29/2023 16:27:36 Closed fracture of fifth metatarsal bone of right foot 8033495751 3179933 S92.354A right 5th metatarsal x-rays reviewed with the patient- stable not completely healedreco mmend Cam boot when longer walking is requiredco ntinue use of cane to offload lower extremity [facility] [place] 4 weeks for repeat x-rays [id number] Tristan Abraham MD [facility] Primary Care [facility] [address] [place] [address] 12/03/2023 09:04:20 12/03/2023 09:29:02 Hyponatremia 90710264 E87.1 feeling well on increased dose of sodium chloride 1000 mg bidrepeat bmp Left side sciatica 09223 16149 11263 M54.32 will resume chiropract [facility] pt/ot orderedcon tinue gabapentin 300 mg, pt [...] for now Chronic ob structive pulmonary disease 43462513 J44.9 refill given [id number] Tristan Abraham MD [facility] [address] [place] [address] 03/03/2024 09:01:57 03/03/2024 09:30:45 Weight loss 75908626 R63.4 due to recent bout of colitisshe feels well at this weightappe tite is good Chronic ob structive pulmonary disease 15296710 J44.9 refill given Hyponatremia 98696878 E8 7.1 feeling well on sodium chloride 1000 mg dailycheck bmp, no change if sodium is stable Renewal of prescription 179867109 Z76.0 Neuropathy 201443190 G62 .9 stable Essential hypertension 09282283 I10 doing well Health Concerns Section Related Observation LastModified by Organization Detai ls LastModified Time None Recorded Concern Status LastModified by Organization Details LastModified Time None Recorded Advance Directives Directive None Recorded Payers Insurance Date Sequence Insurance Name Policy Number Policy Campa Covered Member ID Campa Member ID Guarantor Name 02/29/2024 1 [employer] (MEDICARE REPLACEMENT/A DVANTAGE - PPO) Angella Espinoza [id number] Angella Espinoza 10/26/2023 [employer] (MEDICARE REPLACEMENT/A DVANTAGE - PPO) [id number] Angella Espinoza [id number] Angella Espinoza Notes Date Note Type Note Provider Name and Address Organization Details Recorded Time 10/03/2023 text/html Ms Espinoza presents today to follow up on hospitalization for [...] on discharge.Has appointment with PCM next week ELSA Cantor-BC [address], [place], [address], [employer] 10/03/2023 13:46:33 10/09/2023 text/html ROS as noted in the HPI would like to increase sodium dosage, she feels better with higher sodium level has pain in lower back radiating to left buttock, described as 6-7/10 achy pain, can be stabbing pain with dry cough at night, some heartburn, sleeps propped up Tristan Abraham MD [address], [place], [address], [employer] 10/17/2023 18:01:21 10/29/2023 text/html . Patient is [...] any other complaints. Geronimo Bradley DPM [address], [place], [address], [employer] 10/29/2023 14:57:02 12/03/2023 text/html ROS as noted in the HPI would like to increase sodium dosage, she feels better with higher [...] Abraham MD [address], [place], [address], [employer] [facility] [employer] 12/03/2023 09:28:35 03/03/2024 text/html ROS as noted in the HPI would like to increase sodium dosage, she feels better with higher [...] Abraham MD [address], [place], [address], [employer] [facility] [employer] 03/03/2024 09:30:44 OBGyn Episode No OBEpisode recorded.
--- OUTSIDE RECORDS SUMMARY | 2025-08-31 10:33 | XMS_ITS | Encounter Summary ---
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 Name Role Phone Talya Andino SERVER SERVICE ASSISTANT Primary Care Provider [phone] Reason for Visit * Reason Onset Date Comments Shortness of Breath 07/27/2025 Encounter Details Date Type Department Care Team (Late st Contact Info) Description 07/27/2025 Nurse Triage [facility] Medical Group Family Medicine [address] [address] Talya Andino, SERVER SERVICE ASSISTANT [address] [place] [address] Social History Tobacco Use Types Packs/Day Years Used Date Smoking Tobacco: Former Cigarettes 0 54 1 637 - 2 Smokeless Tobacco: Former Alcohol Use Standard Drinks/Week Comments Never 0 (1 standard drink = 0.6 oz pur e alcohol) PHQ-2 Answer Date Recorded PHQ-2 Total Score (If total score is 3 or more points, staff should administer the PHQ-9) 0 07/23/2025 AUDIT-C Answer Date Recorded Q1: How often do you have a drink containing alcohol? Never 07/23/2025 Q2: How many drinks containi ng alcohol do you have on a typical day when you are drinking? Patient does not drink Q3: How often do you have si x or more drinks on one occasion? 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 Called Dr. Juan Jose Faustin office with [facility] and they stated they could getpt in at the end of the month and they do take her insurance. Spoke to provider who was ok with this referral and gave verbal orders to increase HCTZ to 25 mg daily and recheck CMP in 2 weeks until pt can see cardio. Called pt and she was ok with referral and medication change. Referral order placed and faxed. * Telephone Encounter - Talya Andino NP - 07/28/2025 8:02 AM CDT She needs to see cardiology * Telephone Encounter - Porsche No LPN - 07/27/2025 9:18 AM CDT Provider out of office today. As stated in triage note, BLE edema and symptoms unchanged since 07/23 OV. This is not emergent and will consult with PCP tomorrow. Pt made aware. 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 Pt was prescribed hctz12.5 mg. Pt notes there is no change. Pt's legs are the same size at 07/23 OV, no increase in urination. Pt denies any increase in SOB, denies fever, weeping fluid from legs, CP, change in color/temp of BLE. Pt is still ambulating and speaking in complete sentences. Pt asking if any other interventions are needed. Pt advised to reach out with CP, increase SOB or other concerns. Pt agrees. Please reach out to pt with recommendations regarding swelling to BLE. Disposition See Today in Office Reason for Disposition MODERATE swelling of both ankles (e.g., swelling extends up to the knees) AND new-onset or getting worse No Initial Assessment on file. No Additional Information on file. Protocols Used Leg Swelling and Ouddp-Rcywj-JP * Telephone Encounter - Kelly Ramos RN - 07/27/2025 8:49 AM CDT Regarding: SOB ----- Message from February sent at 07/27/2025 8:37 AM CDT ----- Symptom Based Call Chief Complaint(s): SOB Duration: week What type of symptom(s) is the patient experiencing? Red Flag. Is the patient concerned they are experiencing a medical emergency requiring an ambulance? No Additional Comments: SOB history of COPD she was prescribed hydroCHLOROthiazide 12.5 mg tablet for jerardo swollen ankles and feet nothing has changed there bigger then ever Does message need to be routed? Yes-Action Needed documented in this encounter Plan of Treatment Not on file documented as of this encounter Visit Diagnoses Not on filedocumented in this encounter Care Teams Coal Mill Operator Relationship Specialty Start Date End Date Talya Andino NP [address] [place] [address] PCP - General Internal Medicine 03/27/24 documented as of this encounter
--- OUTSIDE RECORDS SUMMARY | 2025-08-31 10:33 | XMS_ITS | Patient Health Record ---
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 Role Phone Yasmin Abraham Primary Care Provider Unavailab Leann Guaman Unavailable [phone] Lore Padilla Unavailable Unavailable Allergies Allergen (clinical drug ingredient) Drug/Non Drug Allergy documented on EMR Reaction Allergy Type Onset Date Status Penicillin hives Drug Allergy Active Reason For Referral No Information Medications Medication SIG (Take, Route, Frequency, Duration) Notes Start Date End Date Status IPRATROPIUM 500 mcg/2.5 mL 2.5 mL by nebulizer 4 times a day Active Ipratropium [place] 0.02 % 2.5 mL by nebulizer 4 [...] review and pick correct strength-formulatio n from [employer] options. If intended option is not shown, discontinue and re-order from Quick Search* Active GLUCOSAMINE 500 mg 1 tab(s) orally 3 times a day; Duration: 30 day(s) Active [place]-3 1000 MG 1 cap(s) orally once a day; Duration: 30 day(s) Active hydrOXYzine HCl 10 MG 2 tab(s) orally Qday, PRN Active Immunizations Vaccine Route Administration Date Status Comme nts NOC PedvaxHIB IM Intramuscular 03/28/2023 Administered NOC Pneumovax 23 IM Intramuscular 03/28/2023 Administered NOC Pneumovax 23 IM Intramuscular 03/28/2023 Administered H1N1 Influenza Unknown 09/28/2023 Administered Portal I nformation Social History Tobacco Use: Social History Observation Description Date Details (start date - stop date) Former Smoker NA - NA Smoking Smart Form: Question Answer Notes Are you a: former smoker Problems Problem Type SNOMED Code ICD Code Onset Dates Problem Status W/U Status Risk Notes Problem Chronic rhinitis (13520434) Chronic rhinitis (J31.0) Active confirmed Problem Chronic rhinitis (93847206) Chronic rhinitis (J31.0) Active confirmed Problem Pneumonia (401366284) Pneumonia, unspecified organism (J18.9) Active confirmed Problem Chronic obstructive pulmonary disease (91656603) Chronic obstructive pulmonary disease, unspecified (J44.9) Active confirmed Problem 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 Problem Immunodeficiency with predominantly antibody defects, 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 Plan Of Treatment No Information Insurance Providers Payer Name Payer Address Payer Phone Subscriber Number Group Number Insured Name Patient Relationship to Insured Coverage Start Date Coverage End Date [employer] [address] [address] [place] [address] [id number] Angella Espinoza Self - patient is the insured Medical (General) History Medical History History ICD Code Pneumonia, unspecified organism J18.9 Immunodeficiency with predominantly anti body defects, unspecified D80.9 Chronic obstructive pulmonary disease, u nspecified J44.9 Surgical History Surgery Date(Month/Year) Stapedectomy 09/10/2023 Hysterectomy Cholecystectomy Hospitalization History Reason Date(Month/Year) Pneumonia 2021 Hyponatremia 2021
--- OUTSIDE RECORDS SUMMARY | 2025-08-31 10:33 | XMS_ITS | Encounter Summary ---
Author Organization [facility] Healthcare Address [address] [place] [address] Care Team Providers Care News Content Specialist Name Role Phone Talya Andino L D RN Primary Care Provider [phone] Encounter Details Date Type Department Care Team (Late st Contact Info) Description 07/28/2025 Orders Only [facility] Medical Group Family Medicine [address] [place] [address] Talya Andino, L D RN [address] [place] [address] Social History Tobacco Use Types Packs/Day Years Used Date Smoking Tobacco: Former Cigarettes 0 54 1 - 2021 Smokeless Tobacco: Former Alcohol Use Standard Drinks/Week [...] on file 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
--- OUTSIDE RECORDS SUMMARY | 2025-08-31 10:33 | XMS_ITS | Clinical Summary ---
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 Medications potassium chloride ER 10 mEq CR capsule Take 1 tablet/capsule (10 mEq total) by mouth daily with lunch 06/11/20 22 Active omega-3s/dha/epa /fish oil (OMEGA 3 ORAL) Take 2 capsules by mouth daily with lunch Active GLUCOSAMINE HCL ORAL Take 2 tablets by mouth cook syrup maker before breakfast Active Lactobac no.41/Bifidobact no.7 (PROBIOTIC-10 ORAL) Take 1 tablet by mouth every morning Active sodium chloride 1 gram tabletIndication s:Hyponatremia Take 1 tablet (1 g total) by mouth 4 (four) times a day 360 tablet 1 10/07/20 24 Active ipratropium (ATROVENT) 42 mcg (0.06 %) nasal sprayIndications :Severe persistent asthma with acute exacerbation (HCC),Chronic rhinitis USE 2 SPRAYS IN EACH NOSTRIL THREE TIMES DAILY NEEDED FOR NASAL CONGESTION OR DRAINAGE 15 mL 1 04/07/20 25 Active Trelegy Ellipta 200-62.5-25 mcg inhalerIndicatio ns:Chronic obstructive pulmonary disease, unspecified COPD type (HCC),Severe persistent asthma without complication (HCC) INHALE 1 PUFF BY MOUTH DAILY 60 each 3 07/13/20 25 Active gabapentin (NEURONTIN) 300 mg capsule TAKE 1 CAPSULE(300 MG) BY MOUTH THREE TIMES DAILY 300 capsule 1 07/18/20 25 Active ipratropium-albu teroL (DUO-NEB) 0.5-2.5 mg/3 mL nebulizer solutionIndicati ons:Chronic obstructive pulmonary disease, unspecified COPD type (HCC),Severe persistent asthma without complication (HCC) USE 3 ML VIA NEBULIZER EVERY 4 HOURS NEEDED FOR WHEEZING OR SHORTNESS OF BREATH OR COUGHING 180 mL 3 07/24/20 25 Active hydroCHLOROthiaz shannon (HYDRODIURIL) 25 mg tabletIndication s:Chronic diastolic heart failure (HCC),Localized edema Take 1 tablet (25 mg total) by mouth daily 90 tablet 07/28/20 25 026 Active Additional Information Patient not taking.Reported on 08/18/2025 albuterol HFA (PROVENTIL HFA,VENTOLIN HFA,PROAIR HFA) 90 mcg/actuation inhalerIndicatio ns:SOB (shortness of breath) Inhale 2 puffs every 4 (four) hours as needed for shortness of breath or wheezing 1 each 1 08/10/20 25 Active amLODIPine (NORVASC) 2.5 mg tablet TAKE 1 TABLET BY MOUTH DAILY WITH 5 MG TABLET 05/28/20 25 Active atorvastatin (LIPITOR) 20 mg tablet Take 1 tablet every day by oral route for 90 days. Active amLODIPine (NORVASC) 5 mg tabletIndication s:Hypertension, essential Take 1 tablet (5 mg total) by mouth daily 90 tablet 1 08/27/20 25 Active albuterol HFA (PROVENTIL HFA,VENTOLIN HFA,PROAIR HFA) 90 mcg/actuation inhaler Inhale 2 puffs every 4 (four) hours as needed for shortness of breath or wheezing 04/07/20 22 025 Discontin ued(Reord er) Active Problems Problem Noted Date Diagnosed Date BMI 23.0-23.9, adult 07/23/2025 Assessment & Plan (07/23/2025 9:37 AM CDT): Weight/BMI is in healthy range. Continue healthy lifestyle to maintain. Localized edema 07/23/2025 Acute recurrent maxillary sinusitis 07/03/2025 Ankle edema 01/01/2025 Hypertension, essential 03/27/2024 Physical exam, annual 03/27/2024 [...] Plan (09/05/2022 11:33 AM CDT): In cast, NWB LUE. 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 Was recently admitted at [facility]. Nephrology consulted, treated with Na tabs and water restriction (1.5 L). Na 135 on 08/30. Left wrist pain 08/14/2022 Assessment & Plan (08/31/2022 8:56 AM CDT): Had fall on 08/13/22. Xray showed: irregularity of the distal radius which could indicate site of fracture. Dehydration Resolved Problems Problem Noted Date Diagnosed Date Resolved Date BMI 22.0-22.9, adult 03/27/2024 025 Assessment & Plan (07/03/2025 9:11 AM CDT): Weight/BMI is in low range. Continue to work on weight gain to return to healthy weight. Encounters Date Type Department Care Team Description 08/18/2025 10:30 AM CDT Office Visit [facility] Pulmonology [address] [facility] [address] [place] [phone] Ivania Blunt MD Chronic obstructive pulmonary disease, unspecified COPD type (HCC) (Primary Dx); Allergic rhinitis, unspecified seasonality, unspecified trigger 08/10/2025 Telephone [facility] Family Medicine [address] [facility] [address] [place] [phone] Talya Andino NP Med Refill 08/04/2025 12:28 PM CDT - 08/04/2025 11:59 PM CDT Hospital Encounter [facility] Respiratory [address] [place] [address] Chronic obstructive pulmonary disease, unspecified COPD type (HCC) Discharge Disposition: Discharge to home or self care 08/04/2025 11:33 AM CDT - 08/04/2025 11:59 PM CDT Hospital Encounter [facility] [address] [place] [address] Pulmonary nodules Discharge Disposition: Discharge to home or self care 07/30/2025 Telephone [facility] Medicine [address] [place] [address] Road [address] [place] [address] Talya Andino NP 07/28/2025 Orders Only [address] [place] [address] Talya Andino NP 07/28/2025 Orders Only [address] [place] [address] Talya Andino, JOSE RAUL Chronic diastolic heart failure (HCC) (Primary Dx); Atherosclerosis of aorta; Localized edema; SOB (shortness of breath) 07/28/[address] [place] [address] Talya Andino NP 07/27/2025 Nurse Triage [address] [place] [address] Talya Andino NP 07/23/2025 9:30 AM CDT Office Visit [address] [place] [phone] Talya Andino NP Localized edema (Primary Dx); BMI 23.0-23.9, adult 07/17/2025 Nurse Triage [facility] Patient Access [address] [facility] [address] [place] [phone] Lisa Sotelo RN 07/03/2025 9:00 AM CDT Office Visit [address] [place] [phone] Talya Andino NP Acute recurrent maxillary sinusitis (Primary Dx); BMI 22.0-22.9, adult 06/26/2025 Results Follow-Up [address] [place] [phone] Talya Andino NP Comprehensive metabolic panel 06/25/2025 11:00 AM CDT Office Visit [address] [place] [address] Talya Andino NP Acute recurrent maxillary sinusitis (Primary Dx); SOB (shortness of breath); BMI 23.0-23.9, adult; Bill 06/18/2025 4:30 PM CDT Office Visit [address] [place] [address] Talya Andino NP SOB (shortness of breath) (Primary Dx); BMI 23.0-23.9, adult 06/11/2025 11:00 AM CDT Office Visit [address] [place] [address] Talya Andino NP SOB (shortness of breath) (Primary Dx); BMI 23.0-23.9, adult 06/10/2025 Telephone [facility] Pulmonology [address] [facility] [address] [place] [phone] Jessica Azevedo MD 06/10/2025 Nurse Triage [address] [place] [phone] Talya Andino NP 06/08/2025 Orders Only [address] [place] [phone] Talya Andino NP Hyponatremia (Primary Dx) 06/08/2025 Nurse Triage [address] [place] [phone] Talya Andino NP 06/04/2025 8:10 AM CDT - 06/04/2025 11:59 PM CDT Hospital Encounter [facility] Diagnostic Imaging [address] [place] [address] Fever, unspecified fever cause; Chest congestion Discharge Disposition: Discharge to home or self care 06/01/[address] [place] [phone] Talya Andino NP Medical Question/Miscellane ous from Last 3 Months Immunizations Immunization Administration Dates Next Due Influenza, Quad, Adjuvantate d, Intramuscular 08/17/2020 Influenza, Quadrivalent, Hig h Dose, Preservative Free, Intrr 09/12/2024,10/30/2023,08/24/2021 Influenza, Trivalent, High D ose, Split, Preservative Free, Intramuscular 10/04/2022,11/05/2019 Influenza, Unspecified 03/31/2025(Deferr ed: Patient Refused - not season),10/30/2023,09/02/2023 [employer] Sars-Cov-2 Bivalent V accination (12+ YRS) 09/15/2024,07/28/2022 Pneumococcal Conjugate PCV 13 02/03/2015 Pneumococcal Polysaccharide PPV23 2022,10/30/2017,09/19/2017,02/02 RSV Vaccine, Pref, Recombina nt, Subunit, Adjuvanted, PF, IM (Arexvy) 10/30/2023 RSV, Bivalent, Protein Subun it Rsvpref, Diluent (Abrysvo) 10/30/2023 Sars-cov-2 Covid-19 Mrna, Bi valent, Original/omicron Ba.1 08/10/2023 Tdap 10/19/2017 Surgical History Surgery Date Site/Laterality Comments TONSILLECTOMY 11/19/1957 - 11/18/1958 CHOLECYSTECTOMY 11/19/2011 - 11/18/2012 HYSTERECTOMY 11/19/1996 - 11/18/1997 TUBAL LIGATION STAPEDECTOMY CATARACT EXTRACTION Medical History Medical History Date Comments TMJ dysfunction COPD (chronic obstructive pulmonary disease) Arthritis Covid-19 2021 HOME T EST ONLY [...] Smoking Tobacco: Former Cigarettes 0 54 1 8 - 2021 Smokeless Tobacco: Former Tobacco Cessation:Counseling Given: Not Answered Alcohol Use [...] on file Legal Sex Female 7:51 PM 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 Gender Identity Not on file Sexual Orientation Not on file Obstetrics History Last Filed Vital Signs Vital Sign Reading Time Taken Comments Blood Pressure 115/69 08/18/2025 10:21 AM CDT Pulse 83 08/18/2025 10:21 AM CDT Temperature 36.7 C (98 F) 07/23/2025 9:32 AM CDT Respiratory Rate 18 08/18/2025 10:21 AM CDT Oxygen Saturation 95% 08/18/2025 10:21 AM CDT Inhaled Oxygen Concentration - - Weight 55.8 kg (123 lb) 08/18/2025 10:21 AM CDT Height 157.5 cm (5' 2) 08/18/2025 10:21 AM CDT Body Mass Index 22.5 08/18/2025 10:21 AM CDT Plan of Treatment Health Maintenance Due Date Last Done Comments Hepatitis C Screening 1945 Osteoporosis Screening-Bone Density Scan 1945 Hepatitis B Screening 1964 Zoster Vaccine (1 of 2) 1965 Covid-19 Vaccine (2024-2 6 season) 2025 09/15/2024, 08/10/2023, 07/28/2022, Additional history exists Influenza Vaccine (#1) 2025 , 10/30/2023, 10/30/2023, Additional history exists Well Visit 65+ 03/31/2026 03/31/2025, 11/0 05/2024, 03/27/2024 Depression Screening 07/23/2026 07/23/2025, 07/03/2025, 06/25/2025, Additional history exists Fall Risk Assessment 07/23/2026 07/23/2025, 07/03/2025, 06/25/2025, Additional history exists DTaP/Tdap/Td Vaccine (2 - Td or Tdap) 10/19/2027 10/19/2017 Pneumococcal vaccine 65+ Completed 023, 10/30/2017, 09/19/2017, Additional history exists Medical Devices Implanted Type Area Consulting Database Administrator Device Identifier Shelf Expiration Date Model / Serial / Lot Sveta Robertson Otology 5mm .5mm Eclipse 360d Incus Wide Flat Ribbon [id number] - [id number] Implanted:Qty: 1 on 08/11/2022 by Navjot Salas MD at [facility] Right: Ear Sveta Ramirez [id number] 08/19/2026 [id number] / / [id number] Procedures Procedure Name Priority Date/Time Associated Diagnosis Comments PULMONARY FUNCTION TEST (PFT) Routine 08/04/2025 1:30 PM CDT Chronic obstructive pulmonary disease, unspecified COPD type (HCC) CT CHEST WO CONTRAST Schedule Routine, Read Routine (OP Routine) 08/04/2025 11:41 AM CDT Pulmonary nodules COMPREHENSIVE METABOLIC PANEL Routine 06/25/2025 12:27 PM CDT Shakes COMPREHENSIVE METABOLIC PANEL Routine 06/08/2025 12:25 PM CDT Hyponatremia XR CHEST PA LATERAL 2 VIEWS Schedule Routine, Read Routine (OP Routine) 06/04/2025 8:22 AM CDT Fever, unspecified fever cause Chest congestion from Last 3 Months Results * Pulmonary Function Test - (08/04/2025 1:30 PM CDT) FVC POST 1.91 L 08/04/2025 4:24 PM CDT [facility] FEV1 POST 0.70 L 08/04/2025 4:24 PM CDT [facility] [id number] 36.73 % 08/04/2025 4:24 PM CDT [facility] LRJ88-86% POST 0.21 L/s 08/04/2025 4:24 PM CDT [facility] PEF POST 2.13 L/s 08/04/2025 4:24 PM CDT [facility] DLCOc SB 6.89 ml/(min*mm Hg) 08/04/2025 4:24 PM CDT [facility] DLCO/VA PRE 2.38 ml/(min*mm Hg*L) 08/04/2025 4:24 PM CDT [facility] VA 2.89 L 08/04/2025 4:24 PM CDT [facility] TLC PRE 3.75 L 08/04/2025 4:24 PM CDT [facility] VC PRE 1.81 L 08/04/2025 4:24 PM CDT [facility] IC PRE 1.35 L 08/04/2025 4:24 PM CDT [facility] FRC PL PRE 2.42 L 08/04/2025 4:24 PM CDT [facility] ERV PRE 0.49 L 08/04/2025 4:24 PM CDT [facility] RV PRE 1.93 L 08/04/2025 4:24 PM CDT [facility] RAW PRE 23.80 cmH2O*s/L 08/04/2025 4:24 PM CDT [facility] VTG 2.87 L 08/04/2025 4:24 PM CDT [facility] FVC PRE 1.67 L 08/04/2025 4:24 PM CDT [facility] FEV1 PRE 0.65 L 08/04/2025 4:24 PM CDT [facility] [id number] 39.13 % 08/04/2025 4:24 PM CDT [facility] EIX52-63% PRE 0.18 L/s 08/04/2025 4:24 PM CDT [facility] PEF PRE 1.99 L/s 08/04/2025 4:24 PM CDT [facility] Anatomical Region Laterality Modality PFT 08/04/2025 12:3 5 PM CDT Impressions 08/05/2025 8:15 AM CDT 1. Moderate obstructive ventilatory limitation 2. There is a significant positive bronchodilator response 3. Moderate diffusion impairment Electronically signed by Drew Almeida MD Pulmonary & Critical Care Narrative 08/05/2025 8:15 AM CDT PULMONARY FUNCTION TESTS Angella Espinoza 80 y.o. 08/05/2025 INTERPRETATION Please see technologist's comments mentioned in attached results report. SPIROMETRY: Pre bronchodilator FEV1 is 36 % predicted, FVC is 71 % predicted, FEV1/FVC is 0.39 Bronchodilator response: Yes Inspection of the patient's flow-volume loops shows: Scooping of the expiratory limb. Otherwise normal configuration of the inspiratory and expiratory limbs. LUNG VOLUMES: Lung volumes by body plethysmography: TLC is 82 % predicted, RV is 92 % predicted DLCO: Unadjusted for hemoglobin and carboxyhemoglobin DLCO is 37 % predicted us Jessica Azevedo MD PFT ORDERABLES Final Result * CT Chest WO Low Dose Protocol (08/04/2025 11:41 AM CDT) Anatomical Region Laterality Modality Body N/A Computed Tomogra phy 08/11/2025 7:25 AM CDT Narrative 08/11/2025 7:34 AM CDT EXAM DESCRIPTION: CT CHEST WO CONTRAST REASON FOR STUDY: lung nodule F/u lung nodule TECHNIQUE: CT scan of the chest performed without intravenous contrast using helical scanning technique. Reconstructed coronal and sagittal MPR images reviewed. All images stored on PACS. Automated exposure control was used as a dose optimization technique for this examination. COMPARISON: 07/22/2024 FINDINGS: The sensitivity for detection of solid visceral lesions is diminished without the use of intravenous contrast. LUNGS: Central airways are patent. Peripheral airways demonstrate mild bronchiectasis and wall thickening as evidence of chronic inflammatory changes. Short filling defects within the lower lobe bronchi anteriorly on the right suggesting peripheral mucous plugging new from previous. Band like density inferior aspect right upper lobe new from previous extending from the hilar region to the anterolateral pleural surface as evidence of platelike atelectasis. Underlying pneumonitis difficult to fully exclude. No standard consolidations. Left upper lobe soft tissue density with somewhat stellate borders extending to the lateral pleural surface currently visualized image 38 of series 3 slightly less pronounced than prior exam of 08/25/2022 likely represents evolving scarring. PLEURA: No effusion. No pneumothorax. MEDIASTINUM/CALEB: Nonenlarged lymph nodes retrocaval pretracheal space, AP window, subcarinal space generally similar to previous. HEART: Heart size is normal with no pericardial effusion. CORONARY ARTERY CALCIFICATION: Present VASCULATURE: No thoracic aortic aneurysm. AXILLA: No adenopathy. CHEST WALL: No masses. No subcutaneous air. HARDWARE/LINES/TUBES: None. UPPER ABDOMEN: No significant abnormality. MUSCULOSKELETAL: No significant abnormality. OTHER: No other significant abnormality. IMPRESSION: 1. Left upper lobe soft tissue density with somewhat stellate borders extending to the lateral pleural surface slightly less pronounced than prior exam of 08/25/2022 likely represents evolving scarring. 2. Band like density inferior aspect right upper lobe new from previous likely represents platelike atelectasis. Underlying pneumonitis difficult to fully exclude. 3. Mild bronchiectasis and wall thickening as evidence of chronic inflammatory changes with peripheral mucous plugging right lower lobe. 4. Nonenlarged mediastinal lymph nodes similar to previous. THIS IS AN ELECTRONICALLY VERIFIED FINAL REPORT 08/11/2025 7:34 AM - Electronically signed by Davis Basilio M.D. RB T: Report ID: [id number] Reading Location: [place] [address] Procedure Note Davis Basilio MD - 08/11/2025 EXAM DESCRIPTION: CT CHEST WO CONTRAST REASON FOR STUDY: lung nodule F/u lung nodule TECHNIQUE: CT scan of the chest performed without intravenous contrastusing helical scanning technique. Reconstructed coronal and sagittal MPR images reviewed. All images stored on PACS. Automated exposure control was usedas a dose optimization technique for this examination. COMPARISON: 07/22/2024 FINDINGS: The sensitivity for detection of solid visceral lesions is diminished without the use of intravenous contrast. LUNGS: Central airways are patent. Peripheral airways demonstrate mild bronchiectasis and wall thickening as evidence of chronic inflammatory changes. Short filling defects within the lower lobe bronchi anteriorlyon the right suggesting peripheral mucous plugging new from previous. Band like density inferior aspect right upper lobe new from previousextending from the hilar region to the anterolateral pleural surface as evidence of platelike atelectasis. Underlying pneumonitis difficult to fully exclude. No standard consolidations. Left upper lobe soft tissue density with somewhat stellate bordersextending to the lateral pleural surface currently visualized image 38 of series 3 slightly less pronounced than prior exam of 08/25/2022 likely represents evolving scarring. PLEURA: No effusion. No pneumothorax. MEDIASTINUM/CALEB: Nonenlarged lymph nodes retrocaval pretracheal space,AP window, subcarinal space generally similar to previous. HEART: Heart size is normal with no pericardial effusion. CORONARY ARTERY CALCIFICATION: Present VASCULATURE: No thoracic aortic aneurysm. AXILLA: No adenopathy. CHEST WALL: No masses. No subcutaneous air. HARDWARE/LINES/TUBES: None. UPPER ABDOMEN: No significant abnormality. MUSCULOSKELETAL: No significant abnormality. OTHER: No other significant abnormality. IMPRESSION: 1. Left upper lobe soft tissue density with somewhat stellate borders extending to the lateral pleural surface slightly less pronounced thanprior exam of 08/25/2022 likely represents evolving scarring. 2. Band like density inferior aspect right upper lobe new from previous likely represents platelike atelectasis. Underlying pneumonitis difficultto fully exclude. 3. Mild bronchiectasis and wall thickening as evidence of chronic inflammatory changes with peripheral mucous plugging right lower lobe. 4. Nonenlarged mediastinal lymph nodes similar to previous. THIS IS AN ELECTRONICALLY VERIFIED FINAL REPORT 08/11/2025 7:34 AM - Electronically signed by Davis Basilio M.D. RB T: Report ID: [id number] Reading Location: [place] [address] Jessica Azevedo MD IM CT PROCEDURES Final Resul t * (ABNORMAL) Comprehensive metabolic panel (06/25/2025 12:27 PM CDT) Glucose 124(H) 65 - 99 mg/dL [facility] Comment: Fasting reference interval For someone without known diabetes, a glucose value between 100 and 125 mg/dL is consistent with prediabetes and should be confirmed with a follow-up test. BUN 10 7 - 25 mg/dL [facility] Creatinine 0.58(L) 0.60 - 1.00 mg/dL [facility] Acevedo eGFR 92 > OR = 60 mL/min/1.7 3m2 Tima [facility]Lianna Acevedo BUN/creat ratio 17 6 - 22 (calc) [facility] Sodium 132(L) 135 - 146 mmol/L [facility] Potassium, pl 3.6 3.5 - 5.3 mmol/L [facility] Chloride 95(L) 98 - 110 mmol/L Tima HackettYaritza Acevedo CO2 27 20 - 32 mmol/L Tima HackettYaritza Acevedo Calcium 9.5 8.6 - 10.4 mg/dL Tima HackettYaritza Acevedo Protein, sr 6.3 6.1 - 8.1 g/dL Tima HackettYaritza Acevedo Albumin 4.1 3.6 - 5.1 g/dL Tima HackettYaritza Acevedo GLOBULIN 2.2 1.9 - 3.7 g/dL (calc) Tima HackettYaritza Acevedo Alb/glob ratio 1.9 1.0 - 2.5 (calc) Tima HackettYaritza Acevedo Bilirubin, total 0.5 0.2 - 1.2 mg/dL Tima HackettYaritza Acevedo Alk phos 57 37 - 153 U/L Rust LewYaritza Acevedo AST 17 10 - 35 U/L Rust LewYaritza Acevedo ALT (SGPT) 21 6 - 29 U/L Tima HackettYaritza Acevedo Blood 06/25/2025 12:2 7 PM CDT 06/25/2025 12:27 PM CDT us Talya Andino [employer] WORK[employer] LAB BLOOD ORDERABLES Final Re sult [facility] [address] [place] [address] * (ABNORMAL) Comprehensive metabolic panel (06/08/2025 12:25 PM CDT) Glucose 107(H) 65 - 99 mg/dL Tima HackettYaritza Acevedo Comment: Fasting reference interval For someone without known diabetes, a glucose value between 100 and 125 mg/dL is consistent with prediabetes and should be confirmed with a follow-up test. BUN 13 7 - 25 mg/dL Tima HackettYaritza Acevedo Creatinine 0.71 0.60 - 1.00 mg/dL Tima LewYaritza Acevedo eGFR 86 > OR = 60 mL/min/1.7 3m2 Tima HackettYaritza Acevedo BUN/creat ratio SEE NOTE: 6 - 22 (calc) Tima HackettYaritza Acevedo Comment: Not Reported: BUN and Creatinine are within reference range. Sodium 131(L) 135 - 146 mmol/L Tima Hackett-Yaritza Acevedo Potassium, pl 4.1 3.5 - 5.3 mmol/L Tima Hackett-Yaritza Acevedo Chloride 96(L) 98 - 110 mmol/L Tima Hackett-Yaritza Acevedo CO2 27 20 - 32 mmol/L Tima Hackett-Yaritza Acevedo Calcium 9.7 8.6 - 10.4 mg/dL Tima Hackett-Yaritza Acevedo Protein, sr 6.6 6.1 - 8.1 g/dL Tima Hackett-Yaritza Acevedo Albumin 4.3 3.6 - 5.1 g/dL Tima Hackett-Yaritza Acevedo GLOBULIN 2.3 1.9 - 3.7 g/dL (calc) Tima Hackett-Yaritza Acevedo Alb/glob ratio 1.9 1.0 - 2.5 (calc) Tima Hackett-Yaritza Acevedo Bilirubin, total 0.4 0.2 - 1.2 mg/dL Tima Hackett-Yaritza Acevedo Alk phos 62 37 - 153 U/L Tima Hackett-Yaritza Acevedo AST 18 10 - 35 U/L Tima Hackett-Yaritza Acevedo ALT (SGPT) 14 6 - 29 U/L Tima HackettYaritza Acevedo Blood 06/08/2025 12:2 5 PM CDT 06/08/2025 12:25 PM CDT Talya Andino NP LAB BLOOD ORDERABLES Final Re sult TIMA Acevedo [id number] [place] [address] * X-ray chest 2 views (06/04/2025 8:22 AM CDT) Anatomical Region Laterality Modality Body, Chest N/A Computed Radiogr aphy 06/05/2025 10:0 6 AM CDT Narrative 06/05/2025 10:08 AM CDT EXAM DESCRIPTION: XR CHEST PA LATERAL 2 VIEWS REASON FOR STUDY: fever congestion Pt sts: chronic sob, copd/asthma X 5 years, smoker 20-30 years, denies surgery TECHNIQUE: 2 radiographic view(s) of the chest. COMPARISON: 07/22/2024 and 08/29/2022 FINDINGS: LUNGS: No pneumonic consolidation or pulmonary edema seen. No pleural effusion or pneumothorax identified. HEART/MEDIASTINUM: Heart size and cardiomediastinal contours are normal in unchanged. Aortic atherosclerosis is present. LINES/TUBES: None. BONES: No acute displaced fracture or aggressive bone lesion identified There are cholecystectomy clips. There is degenerative disc disease. IMPRESSION: No acute cardiopulmonary findings. THIS IS AN ELECTRONICALLY VERIFIED FINAL REPORT 06/05/2025 10:08 AM - Electronically signed by Tan Bo M.D. MZ T: Report ID: [id number] Reading Location: [id number] Procedure Note Tan Bo MD - 06/05/2025 EXAM DESCRIPTION: XR CHEST PA LATERAL 2 VIEWS REASON FOR STUDY: fever congestion Pt sts: chronic sob, copd/asthma X 5 years, smoker 20-30 years, deniessurgery TECHNIQUE: 2 radiographic view(s) of the chest. COMPARISON: 07/22/2024 and 08/29/2022 FINDINGS: LUNGS: No pneumonic consolidation or pulmonary edema seen. No pleural effusion or pneumothorax identified. HEART/MEDIASTINUM: Heart size and cardiomediastinal contours are normalin unchanged. Aortic atherosclerosis is present. LINES/TUBES: None. BONES: No acute displaced fracture or aggressive bone lesion identified There are cholecystectomy clips. There is degenerative disc disease. IMPRESSION: No acute cardiopulmonary findings. THIS IS AN ELECTRONICALLY VERIFIED FINAL REPORT 06/05/2025 10:08 AM - Electronically signed by Tan Bo M.D. 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
== END 2025-08-31 09:48 | disposition home or self-care (01) ==
PROVIDERS: PCP Nurse Practitioner Family; Visit Provider Internal Medicine Cardiovascular Disease
DX: R06.09 Other forms of dyspnea (principal)
CPT/HCPCS: 93306